=== PATIENT | female | born 1930 | race Caucasian/White ===

== ENCOUNTER 2017-06-16 19:04 | Emergency (ER) | payer OTHER ==
[~2017-06-16] VITALS: Ht 160 cm; Wt 85.4 kg
[~2017-06-16 19:04] MED LIST: AMLO-110 PO; AMLO-114 PO; BACI500O21 TOP; DEXT30TA7 PO; DICL1GEL12 TOP; FERR1TAB13 PO; METR0.757 TOP; MULTCAP31 PO; NYSCR30 TOP; OMEG10007 PO; PRLSR20 PO
[2017-06-16 19:12] VITALS: TEMP 36.4; Ht 160 cm; Wt 85.4 kg
--- NOTE | 2017-06-16 20:10 | DIAGNOSTIC IMAGING REPORT ---
R SHOULDER MIN 2 VIEWS ROUTINE HISTORY: 87 years-old Female shoulder pain acute right-sided shoulder pain without reported trauma COMPARISON: None available TECHNIQUE: 4 views of the right shoulder FINDINGS: The bones appear moderately demineralized which limits evaluation for acute nondisplaced fracture. Severe glenohumeral and acromioclavicular degenerative changes are noted. There is prominent spurring along the caudal portion of the acromium. Study is also limited secondary to patient positioning. No acute fracture or subluxation is identified. IMPRESSION: 1. No acute fracture or dislocation identified. 2. Severe glenohumeral and acromioclavicular degenerative changes . The above report was generated using voice recognition software. It may contain grammatical, syntax or spelling errors. Electronically signed by: Jaden Anglin M.D. 06/16/2017 8:09 PM Dictated Date/Time: 06/16/2017 8:05 PM
[2017-06-16] MEDS ORDERED: OXYCODONE HCL IR 5 MG TAB (IMMEDIATE RELEASE) PO STA (20:31)
[2017-06-16] MEDS ORDERED: CMD/25 PO ×2 (20:35)
[2017-06-16] MEDS ORDERED: ATOR10TA82 PO (20:35)
[2017-06-16] MEDS ORDERED: SODI5SOL4 OPB (20:35)
[2017-06-16] MEDS ORDERED: ACET1TAB84 PO (20:35)
[2017-06-16] MEDS ORDERED: LIDO1CRE16 TOP (20:35)
[2017-06-16] MEDS ORDERED: PRMVC PV (20:35)
[2017-06-16] MEDS ORDERED: PRED20TA PO (20:35)
[2017-06-16] MEDS ORDERED: COEN100C11 PO (20:35)
[2017-06-16] MEDS ORDERED: ALLO100T PO (20:35)
[2017-06-16] MEDS ORDERED: CLR10 PO (20:35)
[2017-06-16] MEDS ORDERED: MISCCAP80 PO (20:35)
[2017-06-16] MEDS ORDERED: AMX500 PO (20:35)
[2017-06-16] MEDS ORDERED: CYAN500T PO (20:35)
[2017-06-16] MEDS ORDERED: ASPCH81X PO (20:35)
[2017-06-16] MEDS ORDERED: COLC0.6T54 PO (20:35)
[2017-06-16] MEDS ORDERED: FLUT0.15 NAE (20:35)
[2017-06-16] MEDS ORDERED: [UNRECOGNIZED DRUG - CODE] TOP (20:35)
[2017-06-16] MEDS ORDERED: TRIA0.5C4 TOP (20:35)
[2017-06-16] MEDS ORDERED: ACET325T96 PO (20:35)
[2017-06-16] MEDS ORDERED: OXYCODONE IR HOME PACK PO ONE (20:45)
[2017-06-16] MEDS ORDERED: MENT4GEL TOP (21:08)
[2017-06-16] MEDS ORDERED: PRLSR20 PO (21:08)
[2017-06-16] MEDS ORDERED: AMLO5TAB2 PO (21:08)
[2017-06-16] MEDS ORDERED: FERR1TAB62 PO (21:08)
[2017-06-16] MEDS ORDERED: MULTCAP31 PO (21:08)
[2017-06-16] MEDS ORDERED: METR0.7527 TOP (21:08)
[2017-06-16] MEDS ORDERED: GUAI1TAB55 PO (21:08)
[2017-06-16] MEDS ORDERED: DICL1GEL12 TOP (21:19)
[2017-06-16 21:48] VITALS: BP 147/76; PULSE 78; O2SAT 99
--- NOTE | 2017-06-16 22:47 | EMERGENCY ROOM VISIT NOTE ---
History Report prepared by Chucky Zhang Under the Supervision of: Dr. Eze Baig D.O. First contact with patient: 19:06 Chief Complaint: SHOULDER PAIN Stated Complaint: SHOULDER PAIN History of Present Illness The patient is an 87 year old female who presents to the Emergency Room with complaints of an episode of right shoulder pain starting yesterday. The patient states that she is unsure why it hurts. She notes that the pain is worse with movement. She notes that she has had this pain before, but has never been this bad. The patient denies falling, tingling, numbness, cough, runny nose, and abdominal pain. She reports that she lives at [facility]. Patient has had pain in the right shoulder for some time but notes that it has significantly worsened now. Source of History: patient Onset: yesterday Position: shoulder (right) Timing: other (episode) Modifying Factors (Worsening): movement Associated Symptoms: No cough, No abdominal pain, No numbness Note: The patient denies falling, tingling, and a runny nose. Review of Systems See HPI for pertinent positives & negatives. A total of 10 systems reviewed and were otherwise negative. Past Medical & Surgical Medical Problems: (1) GI bleed (2) History of DVT (deep vein thrombosis) (3) Hyperlipidemia (4) Hypertension (5) Seasonal allergies Family History No pertinent family history Social History Smoking Status: Former Smoker Drug Use: none Marital Status: Housing Status: custodial Occupation Status: retired Current/Historical Medications Scheduled Acetaminophen (Tylenol Arthritis Ext Rel), 1,300 MG PO QAM Allopurinol (Zyloprim), 100 MG PO DAILY Amlodipine Besylate (Norvasc), 5 MG PO HS Aspirin (Aspirin Chewable), 81 MG PO DAILY Atorvastatin (Lipitor), 10 MG PO HS Coenzyme Q10 (Ubidecarenone) (Coq-10), 100 MG PO DAILY Colchicine (Colchicine), 0.6 MG PO Q48HRS Cyanocobalamin (Vitamin B-12), 500 MCG PO QAM Emollient (Eucerin Original Healing), 1 APPLN TOP HS Estrogens, Conjugated (Premarin), 1 APPL PV 3XWK Ferrous Sulfate (Ferrous Sulfate), 325 MG PO QPM Fish Oil (Vici-3), 1,000 MG PO QAM Fluticasone Propionate (Nasal) (Flonase Allergy Relief), 1 SPRAY EVA DAILY Loratadine (Claritin), 10 MG PO Q24H Metronidazole (Topical) (Metrogel), 1 APPLN TOP BID Multiple Vitamins W/ Minerals (Ocuvite Lutein), 1 CAP PO QAM Omeprazole (Prilosec), 40 MG PO BID Probiotic Product (Probiotic), 1 CAP PO DAILY Sodium Chloride Hypertonic (Jim 128), 1 DROP OPB TID Triamcinolone Acet (Triamcinolone Acetonide), 1 APPLN TOP AMPM Warfarin Sod (Coumadin), 2.5 MG PO 6XWK Warfarin Sod (Coumadin), 1.25 MG PO WK Scheduled PRN Acetaminophen Tab (Tylenol), 650 MG PO Q6H PRN for Pain or Fever Amoxicillin (Amoxicillin), 2,000 MG PO UD PRN for Antibiotic Prophylaxis Diclofenac Sodium (Topical) (Voltaren 1% Top Gel), 2 GM TOP Q6H PRN for Shoulder Pain Guaifenesin Ext Rel (Mucinex Ext Rel), 600 MG PO Q12 PRN for Cough/Congestion Lidocaine-Prilocaine (Lidocaine/Prilocaine), 1 APPLN TOP Q6H PRN for Shoulder Pain Menthol (Topical Analgesic) (Biofreeze), 1 APPLN TOP Q4H PRN for Pain Prednisone (Prednisone), 20 MG PO UD PRN for Gout Flare Up Allergies Coded Allergies: No Known Allergies (Unverified , 04/17/17) Physical Exam Vital Signs Date Time Temp Pulse Resp B/P (MAP) Pulse Ox O2 Delivery O2 Flow Rate FiO2 06/16/17 21:48 78 20 147/76 99 06/16/17 20:00 85 20 147/78 97 Room Air 06/16/17 19:12 36.4 91 20 157/79 95 Room Air Physical Exam GENERAL: Sitting up in bed and holding right shoulder with her left arm, alert, well appearing, well nourished, mild distress, non-toxic EYE EXAM: normal conjunctiva. OROPHARYNX: no exudate, no erythema, lips, buccal mucosa, and tongue normal and mucous membranes are moist NECK: supple, no nuchal rigidity, no adenopathy, non-tender LUNGS: Clear to auscultation. Normal chest wall mechanics HEART: no murmurs, S1 normal and S2 normal ABDOMEN: abdomen soft, non-tender, normo-active bowel sounds, no masses, no rebound or guarding. BACK: Back is symmetrical on inspection and there is no deformity, no midline tenderness, no CVA tenderness. SKIN: no rashes and no bruising UPPER EXTREMITIES: Significant pain with palpation of right humerus along with abduction more than 60 degrees, internal rotation and external rotation. LOWER EXTREMITIES: No pitting edema. NEURO EXAM: Oriented to person, place, and time. Nonfocal. Medical Decision & Procedures ER Provider Diagnostic Interpretation: Radiology results as stated below per my review and the radiologist's interpretation: R SHOULDER MIN 2 VIEWS ROUTINE HISTORY: 87 years-old Female shoulder pain acute right-sided shoulder pain without reported trauma COMPARISON: None available TECHNIQUE: 4 views of the right shoulder FINDINGS: The bones appear moderately demineralized which limits evaluation for acute nondisplaced fracture. Severe glenohumeral and acromioclavicular degenerative changes are noted. There is prominent spurring along the caudal portion of the acromium. Study is also limited secondary to patient positioning. No acute fracture or subluxation is identified. IMPRESSION: 1. No acute fracture or dislocation identified. 2. Severe glenohumeral and acromioclavicular degenerative changes . The above report was generated using voice recognition software. It may contain grammatical, syntax or spelling errors. Electronically signed by: Jaden Anglin M.D. 06/16/2017 8:09 PM Dictated Date/Time: 06/16/2017 8:05 PM Medications Administered Medications (Trade) Dose Ordered Sig/Nydia Route Start Time Stop Time Status Last Admin Dose Admin Oxycodone HCl (Roxicodone Immediate Rel Tab) 5 mg NOW STAT PO 06/16/17 20:31 06/16/17 20:32 DC 06/16/17 21:28 5 MG Oxycodone HCl (Roxicodone Immediate Rel 5MG Home Pack) 1 homepack UD ONCE PO 06/16/17 20:45 06/16/17 20:46 DC 06/16/17 21:28 1 HOMEPACK ED Course ED COURSE: Vital signs were reviewed and showed hypertensive situationally. The patients medical record was reviewed The above diagnostic studies were performed and reviewed. ED treatments and interventions as stated above. 1908: The patient was evaluated in room A4A. A complete history and physical examination was performed. 2030: Ordered Oxycodone HCl 5 mg PO. 2035: Upon reevaluation, the patient is resting comfortably.I discussed my findings with the patient and her family. They understand and agrees with the treatment plan. The patient will be discharged home. 2044: Ordered Oxycodone HCl 1 homepack PO. Based on the patients age, coexisting illnesses, exam and lab findings the decision to treat as an outpatient was made. The patient remained stable while under my care. The patient appeared well at the time of discharge. Medical Decision Differential diagnosis: Etiologies such as fracture, dislocation, neurovascular compromise, compartment syndrome, soft tissue injury, as well as others were entertained. Patient is an 87-year-old female who presents to ER for right shoulder pain. Patient denies any trauma. No chest pain or shortness of breath. On exam it clearly reproducible. Pain is worsened with internal and external rotation. Along with abduction and palpation. She has severe arthritis on x-ray. Patient was given OxyIR and discharged following a long conversation with family back to [facility]. She has a narcotic prescription which hasn't been filled yet which family will fill for her. Discussed with Pt concerning signs and symptoms to watch out for. Pt was instructed to follow up with their PCP and discussed with the patient their option to return to the ED at anytime for persistent or worsening symptoms. The appropriate anticipatory guidance and out-patient management, including indications for return to the emergency department, were explained at length to the patient and understood. Medication Reconcilliation Current Medication List: was personally reviewed by me Blood Pressure Screening Patient's blood pressure: Elevated blood pressure Blood pressure disposition: Elevated BP felt to be situational Impression Primary Impression: Right shoulder pain Scribe Attestation The scribe's documentation has been prepared under my direction and personally reviewed by me in its entirety. I confirm that the note above accurately reflects all work, treatment, procedures, and medical decision making performed by me. Departure Information Dispostion Home / Self-Care Referrals Antonette Lilly D.O. (PCP) Forms HOME CARE DOCUMENTATION FORM, IMPORTANT VISIT INFORMATION Patient Instructions My [facility] Additional Instructions Please follow up with your primary care doctor with in the next 24 hours. Any worsening of your symptoms, please return to the ED immediately. This includes any fevers greater than 100.4, worsening pain, chest pain, shortness breath, persistent nausea, vomiting, unable to eat or drink, or any other concerning signs or symptoms from your standpoint. Please take pain medications as prescribed. Problem Qualifiers Primary Impression: Right shoulder pain Chronicity: acute Qualified Codes: M25.511 - Pain in right shoulder
== END 2017-06-16 21:50 | disposition home or self-care (01) ==
LOC: EDBD 19:04 → C.EDA 19:05
DX: M25.511 Pain in right shoulder (principal); E78.5 Hyperlipidemia, unspecified; I10 Essential (primary) hypertension; Z86.718 Personal history of other venous thrombosis and embolism; Z87.891 Personal history of nicotine dependence; Z79.82 Long term (current) use of aspirin; Z79.01 Long term (current) use of anticoagulants; Z79.899 Other long term (current) drug therapy

== ENCOUNTER 2017-06-24 15:26 | Inpatient (IN) | payer OTHER ==
[~2017-06-24] VITALS: Ht 154.9 cm; Wt 83.6 kg
[~2017-06-24 15:26] MED LIST changes: +ACET1TAB84 PO; +ACET325T96 PO; +ALLO100T PO; -AMLO-110 PO; -AMLO-114 PO; +AMLO5TAB2 PO; +AMX500 PO; +ASPCH81X PO; +ATOR10TA82 PO; -BACI500O21 TOP; +CLR10 PO; +CMD/25 PO; +COEN100C11 PO; +COLC0.6T54 PO; +CYAN500T PO; -DEXT30TA7 PO; -FERR1TAB13 PO; +FERR1TAB62 PO; +FLUT0.15 NAE; +GUAI1TAB55 PO; +LIDO1CRE16 TOP; +MENT4GEL TOP; +METR0.7527 TOP; -METR0.757 TOP; +MISCCAP80 PO; -NYSCR30 TOP; +PRED20TA PO; +PRMVC PV; +SODI5SOL4 OPB; +TRIA0.5C4 TOP; +[UNRECOGNIZED DRUG - CODE] TOP
[2017-06-24] MEDS ORDERED: ONDANSETRON INJ 2 MG/ML 2 ML VIAL IV STA (15:56)
[2017-06-24] MEDS ORDERED: SODIUM CHLORIDE 0.9% 500ML 500 ML IV STA (15:59)
[2017-06-24 16:24] LABS: BASO % 0.1 %; BASO ABS # 0.01 K/uL (0-0.2); EOS % 0.2 %; EOS ABS # 0.02 K/uL (0-0.5); HEMATOCRIT 29.5 % (37-47); HEMOGLOBIN 9.9 g/dL (12.0-16.0); IG# 0.04 K/uL (0.00-0.02); LYMPH % 13.6 %; LYMPH ABS # 1.24 K/uL (1.2-3.4); MEAN CORPUSCULAR HEMOGLOBIN 32.6 pg (25-34); MEAN CORPUSCULAR HGB CONC 33.6 g/dl (32-36); MEAN PLATELET VOLUME 10.3 fL (7.4-10.4); MONO % 6.3 %; MONO ABS # 0.57 K/uL (0.11-0.59); NEUT % 79.4 %; NEUT ABS # 7.24 K/uL (1.4-6.5); PLATELET COUNT 257 K/uL (130-400); RED CELL DISTRIBUTION WIDTH CV 14.2 % (11.5-14.5); RED CELL DISTRIBUTION WIDTH SD 50.2 fL (36.4-46.3); WHITE BLOOD COUNT 9.12 K/uL (4.8-10.8)
--- NOTE | 2017-06-24 16:25 | DIAGNOSTIC IMAGING REPORT ---
CT HEAD WITHOUT CONTRAST (CT) CLINICAL HISTORY: Generalized weakness. Confusion. COMPARISON STUDY: No previous studies for comparison. TECHNIQUE: Axial CT of the brain is performed from the vertex to the skull base. IV contrast was not administered for this examination. A dose lowering technique was utilized adhering to the principles of ALARA. CT DOSE: 614.27 mGy.cm FINDINGS: No intra or extra-axial mass lesions are visualized. There is no CT evidence of acute cortical infarction. There is no evidence of midline shift. There is no acute hemorrhage. No calvarial fractures are visualized. There are moderate white matter hypodensities likely on a small vessel basis. There is mild ventricular dilatation, likely secondary to volume loss. There is no evidence of acute sinusitis IMPRESSION: No acute intracranial findings Electronically signed by: Héctor Stoddard M.D. 06/24/2017 4:24 PM Dictated Date/Time: 06/24/2017 4:22 PM
[2017-06-24] MEDS ORDERED: OXYC1CAP5 PO ×3 (16:33)
[2017-06-24] MEDS ORDERED: HYDR-5688 PO ×2 (16:40)
[2017-06-24 16:42] LABS: ALBUMIN 2.7 gm/dl (3.4-5.0); ALT/SGPT 27 U/L (12-78); AST/SGOT 14 U/L (15-37); BLOOD UREA NITROGEN 89 mg/dl (7-18); CALCIUM 8.8 mg/dl (8.5-10.1); CARBON DIOXIDE 24 mmol/L (21-32); CREATININE 1.13 mg/dl (0.60-1.20); GLUCOSE 118 mg/dl (70-99); LIPASE 175 U/L (73-393); POTASSIUM 4.2 mmol/L (3.5-5.1); SODIUM 142 mmol/L (136-145)
[2017-06-24 16:46] LABS: ALKALINE PHOSPHATASE 104 U/L (45-117); PHOSPHORUS 2.6 mg/dl (2.5-4.9); TOTAL PROTEIN 6.2 gm/dl (6.4-8.2)
--- NOTE | 2017-06-24 18:29 | DIAGNOSTIC IMAGING REPORT ---
PA CHEST RADIOGRAPH AND UPRIGHT AND SUPINE AP RADIOGRAPHS OF THE ABDOMEN CLINICAL HISTORY: Abdominal pain. COMPARISON STUDY: No previous studies for comparison. FINDINGS: Lung volumes are normal. No pneumothorax or pleural effusion is noted. Lobular density along the left hemidiaphragm is noted. There is no evidence of pulmonary edema. There is no consolidation to suggest pneumonia. Patient is rotated. Several mediastinal air-fluid levels. This suggests a hiatal hernia with possible esophageal dilatation. There is no free air. The bowel gas pattern is normal. A moderate amount stool within the cecum/ascending colon is noted. A 2.5 cm calcified right upper quadrant structure likely reflects a gallstone. IMPRESSION: 1. Lower mediastinal fullness with several mediastinal air-fluid levels. The findings favor a hiatal hernia with possible intrathoracic stomach and possible esophageal dilatation. This could be correlated with clinical evidence for obstruction such as vomiting. 2. No free air or evidence of a bowel obstruction. 3. Lobular density along the left hemidiaphragm. This may reflect elevation/eventration of the left hemidiaphragm or a Bochdalek hernia. However, follow-up nonemergent lateral chest radiograph is recommended for further evaluation. 4. Cholelithiasis. Electronically signed by: Mikhail Forde M.D. 06/24/2017 6:27 PM Dictated Date/Time: 06/24/2017 6:20 PM
[2017-06-24] MEDS ORDERED: PANTOprazole INJ 80 MG in DEXTROSE 5% 100ML IV SCH (19:15)
[2017-06-24] MEDS: PANTOprazole INJ 40 MG in DEXTROSE 5% 100ML IV SCH (19:15)
--- NOTE | 2017-06-24 19:24 | EMERGENCY ROOM VISIT NOTE ---
History Report prepared by Bakari: Evelina Da Silva Under the Supervision of: Dr. Jac Quiles M.D. First contact with patient: 15:35 Chief Complaint: ILLNESS Stated Complaint: VOMITING,LETHARGIC History of Present Illness The patient is an 87 year old white female with a past medical history of GI bleed, DVT, hyperlipidemia, hypertension who presents to the ED with a cc of persistent weakness beginning this morning. Positive vomiting, fatigue, confusion. Negative cough, fever, chills, speech change, abdominal pain. Source of History: patient, family Onset: this morning Position: other (global) Quality: other (weakness) Timing: other (persistent) Associated Symptoms: + vomiting, + fatigue, No fevers, No chills, No cough, No abdominal pain Note: Pt reports confusion. Review of Systems See HPI for pertinent positives and negatives. A total of ten systems were reviewed and were otherwise negative. Past Medical & Surgical Medical Problems: (1) GI bleed (2) History of DVT (deep vein thrombosis) (3) Hyperlipidemia (4) Hypertension (5) Seasonal allergies Family History No pertinent family history Social History Smoking Status: Never Smoker Drug Use: none Marital Status: Housing Status: [facility] Occupation Status: retired Current/Historical Medications Scheduled Acetaminophen (Tylenol Arthritis Ext Rel), 1,300 MG PO QAM Allopurinol (Zyloprim), 100 MG PO DAILY Amlodipine Besylate (Norvasc), 5 MG PO HS Aspirin (Aspirin Chewable), 81 MG PO DAILY Atorvastatin (Lipitor), 10 MG PO HS Coenzyme Q10 (Ubidecarenone) (Coq-10), 100 MG PO DAILY Colchicine (Colchicine), 0.6 MG PO Q48HRS Cyanocobalamin (Vitamin B-12), 500 MCG PO QAM Emollient (Eucerin Original Healing), 1 APPLN TOP HS Estrogens, Conjugated (Premarin), 1 APPL PV 3XWK Ferrous Sulfate (Ferrous Sulfate), 325 MG PO QPM Fish Oil ([place]-3), 1,000 MG PO QAM Fluticasone Propionate (Nasal) (Flonase Allergy Relief), 1 SPRAY EVA DAILY Metronidazole (Topical) (Metrogel), 1 APPLN TOP BID Multiple Vitamins W/ Minerals (Ocuvite Lutein), 1 CAP PO QAM Omeprazole (Prilosec), 40 MG PO BID Probiotic Product (Probiotic), 1 CAP PO DAILY Sodium Chloride Hypertonic (Jim 128), 1 DROP OPB TID Triamcinolone Acet (Triamcinolone Acetonide), 1 APPLN TOP AMPM Warfarin Sod (Coumadin), 2.5 MG PO 6XWK Warfarin Sod (Coumadin), 1.25 MG PO WK Scheduled PRN Acetaminophen Tab (Tylenol), 650 MG PO Q6H PRN for Pain or Fever Amoxicillin (Amoxicillin), 2,000 MG PO UD PRN for Antibiotic Prophylaxis Diclofenac Sodium (Topical) (Voltaren 1% Top Gel), 2 GM TOP Q6H PRN for Shoulder Pain Guaifenesin Ext Rel (Mucinex Ext Rel), 600 MG PO Q12 PRN for Cough/Congestion Hydrocodone/Acetaminophen 5MG/325MG ([place] 5MG/325MG), 0.5 TABLET PO Q4 PRN for Pain Hydrocodone/Acetaminophen 5MG/325MG ([place] 5MG/325MG), 1 TABLET PO Q4H PRN for Pain Hydrocodone/Acetaminophen 5MG/325MG ([place] 5MG/325MG), 2 TABLETS PO Q4 PRN for Pain Lidocaine-Prilocaine (Lidocaine/Prilocaine), 1 APPLN TOP Q6H PRN for Shoulder Pain Loratadine (Claritin), 10 MG PO Q24H PRN for Seasonal Allergies Menthol (Topical Analgesic) (Biofreeze), 1 APPLN TOP Q4H PRN for Pain Oxycodone Hcl (Oxycodone Hcl), 2.5 MG PO Q4 PRN for Pain Oxycodone Hcl (Oxycodone Hcl), 5 MG PO Q4H PRN for Pain Prednisone (Prednisone), 20 MG PO UD PRN for Gout Flare Up Allergies Coded Allergies: No Known Allergies (Unverified , 06/24/17) Physical Exam Vital Signs Date Time Temp Pulse Resp B/P (MAP) Pulse Ox O2 Delivery O2 Flow Rate FiO2 06/24/17 19:00 95 19 123/52 96 06/24/17 18:57 88 18 133/73 97 Room Air 06/24/17 17:35 88 18 94 06/24/17 17:05 87 19 95 06/24/17 17:00 146/85 06/24/17 16:35 89 17 94 06/24/17 16:30 134/80 06/24/17 16:26 91 13 06/24/17 16:11 92 15 06/24/17 16:11 92 06/24/17 15:31 36.9 98 18 109/66 96 Room Air Physical Exam GENERAL: Awake, alert, well-appearing, NAD HENT: Normocephalic, atraumatic. EYES: Normal conjunctiva. Sclera non-icteric. NECK: Supple. No nuchal rigidity. FROM. RESPIRATORY: CTAB, no rhonchi, wheezing, crackles CARDIAC: RRR, no MRG ABDOMEN: Soft, NTND, BS+ MSK: No chest wall TTP, no LE edema NEURO: CN 2-12 intact, 5/5 upper and lower extremity strength, no dysmetria, no drift, good finger to nose, no sensory deficits. SKIN: No rash or jaundice noted. Medical Decision & Procedures ER Provider Diagnostic Interpretation: Radiology results as stated below per my review and radiologist interpretation: PA CHEST RADIOGRAPH AND UPRIGHT AND SUPINE AP RADIOGRAPHS OF THE ABDOMEN CLINICAL HISTORY: Abdominal pain. COMPARISON STUDY: No previous studies for comparison. FINDINGS: Lung volumes are normal. No pneumothorax or pleural effusion is noted. Lobular density along the left hemidiaphragm is noted. There is no evidence of pulmonary edema. There is no consolidation to suggest pneumonia. Patient is rotated. Several mediastinal air-fluid levels. This suggests a hiatal hernia with possible esophageal dilatation. There is no free air. The bowel gas pattern is normal. A moderate amount stool within the cecum/ascending colon is noted. A 2.5 cm calcified right upper quadrant structure likely reflects a gallstone. IMPRESSION: 1. Lower mediastinal fullness with several mediastinal air-fluid levels. The findings favor a hiatal hernia with possible intrathoracic stomach and possible esophageal dilatation. This could be correlated with clinical evidence for obstruction such as vomiting. 2. No free air or evidence of a bowel obstruction. 3. Lobular density along the left hemidiaphragm. This may reflect elevation/eventration of the left hemidiaphragm or a Bochdalek hernia. However, follow-up nonemergent lateral chest radiograph is recommended for further evaluation. 4. Cholelithiasis. Electronically signed by: Mikhail Forde M.D. 06/24/2017 6:27 PM Dictated Date/Time: 06/24/2017 6:[address] HEAD WITHOUT CONTRAST (CT) CLINICAL HISTORY: Generalized weakness. Confusion. COMPARISON STUDY: No previous studies for comparison. TECHNIQUE: Axial CT of the brain is performed from the vertex to the skull base. IV contrast was not administered for this examination. A dose lowering technique was utilized adhering to the principles of ALARA. CT DOSE: 614.27 mGy.cm FINDINGS: No intra or extra-axial mass lesions are visualized. There is no CT evidence of acute cortical infarction. There is no evidence of midline shift. There is no acute hemorrhage. No calvarial fractures are visualized. There are moderate white matter hypodensities likely on a small vessel basis. There is mild ventricular dilatation, likely secondary to volume loss. There is no evidence of acute sinusitis IMPRESSION: No acute intracranial findings Electronically signed by: Héctor Stoddard M.D. 06/24/2017 4:24 PM Dictated Date/Time: 06/24/2017 4:22 PM Laboratory Results Test 06/24/17 16:12 06/24/17 16:18 06/24/17 19:32 Immature Granulocyte % (Auto) 0.4 % White Blood Count 9.12 K/uL (4.8-10.8) Red Blood Count 3.04 M/uL (4.2-5.4) Hemoglobin 9.9 g/dL (12.0-16.0) Hematocrit 29.5 % (37-47) Mean Corpuscular Volume 97.0 fL (80-100) Mean Corpuscular Hemoglobin 32.6 pg (25-34) Mean Corpuscular Hemoglobin Concent 33.6 g/dl (32-36) Platelet Count 257 K/uL (130-400) Mean Platelet Volume 10.3 fL (7.4-10.4) Neutrophils (%) (Auto) 79.4 % Lymphocytes (%) (Auto) 13.6 % Monocytes (%) (Auto) 6.3 % Eosinophils (%) (Auto) 0.2 % Basophils (%) (Auto) 0.1 % Neutrophils # (Auto) 7.24 K/uL (1.4-6.5) Lymphocytes # (Auto) 1.24 K/uL (1.2-3.4) Monocytes # (Auto) 0.57 K/uL (0.11-0.59) Eosinophils # (Auto) 0.02 K/uL (0-0.5) Basophils # (Auto) 0.01 K/uL (0-0.2) Immature Granulocyte # (Auto) 0.04 K/uL (0.00-0.02) Venous Blood pH 7.38 (7.36-7.41) Venous Blood Partial Pressure CO2 40 mmHg (38.0-50.0) Venous Blood Partial Pressure O2 24 mmHg Venous Blood HCO3 24 mmol/L Venous Blood Oxygen Saturation < 60.0 % Venous Blood Base Excess -1.5 mEq/L Phosphorus Level 2.6 mg/dl (2.5-4.9) Magnesium Level 1.9 mg/dl (1.8-2.4) Total Bilirubin 0.2 mg/dl (0.2-1) Direct Bilirubin < 0.1 mg/dl (0-0.2) Aspartate Amino Transf (AST/SGOT) 14 U/L (15-37) Alanine Aminotransferase (ALT/SGPT) 27 U/L (12-78) Alkaline Phosphatase 104 U/L (45-117) Total Protein 6.2 gm/dl (6.4-8.2) Albumin 2.7 gm/dl (3.4-5.0) Lipase 175 U/L (73-393) Bedside Troponin I < 0.030 ng/ml (0-0.045) Prothrombin Time 20.5 SECONDS (9.0-12.0) Prothromb Time International Ratio 2.0 (0.9-1.1) Activated Partial Thromboplast Time 35.9 SECONDS (21.0-31.0) Partial Thromboplastin Ratio 1.4 Laboratory results reviewed by me Medications Administered Medications (Trade) Dose Ordered Sig/Nydia Route Start Time Stop Time Status Last Admin Dose Admin Sodium Chloride 500 ml @ 500 mls/hr Q1H STAT IV 06/24/17 15:59 06/24/17 16:58 DC 06/24/17 16:28 500 MLS/HR Pantoprazole Sodium 80 mg/ Dextrose 120 ml @ 480 mls/hr 1915 IV 06/24/17 19:15 06/24/17 19:29 DC 06/24/17 20:00 480 MLS/HR ECG Indication: weakness Rate (beats per minute): 86 Rhythm: sinus rhythm Findings: 1st degree AV block, other (normal axis, normal QRS, T wave flattening in V3 and avL) Comparison ECG Date: 17-Apr-2017 Change: no significant change ED Course 1551: The patient was evaluated in room A12B. A complete history and physical exam was performed. 1747: I reevaluated the patient. She is feeling well. 1837: Upon reexamination, the patient was resting comfortably. I discussed the test results and treatment plan with her and her daughter. The patient will be evaluated for further management. 1840: I discussed the patient's case with Padmini Barnes PA-C [facility]ist. The patient will be evaluated for further treatment and disposition. Medical Decision The patient is an 87 year old white female with a past medical history of GI bleed, DVT, hyperlipidemia, hypertension who presents to the ED with a cc of persistent weakness beginning this morning. Differential diagnosis: Etiologies such as metabolic, infection, hypo/hyperglycemia, electrolyte abnormalities, cardiac sources, intracerebral event, toxicologic, neurologic, as well as others were entertained. Patient was seen and evaluated the bedside. There was concern the patient had some generalized weakness as well as some crushable confusion. On exam the patient had a nonfocal neurologic exam. Patient was able to answer all questions asked and followed commands. Patient did have blood work completed along with EKG, chest x-ray, troponin, and CT of the brain. CT brain negative. EKG did not show any ischemic changes. Patient had negative troponin. Patient blood work did show that the patient did have an elevated BUNs. The BUNs was greater than 80. Patient did have a hemoglobin that was greater from prior. Patient had normal platelet count. I did have the block and case maker called the [facility]iary for further discussion of why they referred here in addition to whether not be could rehydrate. I believe that the high uremia may explain some of her confusion. Per the block and case maker did call the penitentiary they're concerned about some coffee ground emesis. Did perform a rectal exam which did show that the patient was heme positive. 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 Given that the patient did have an elevated BUN that was much greater than priors, this was not likely related to just dehydration but likely the etiology of an upper GI bleed. The patient was given a PPI bolus and drip. Patient was pending coagulation studies and the patient was admitted for GI bleed. Medication Reconcilliation Current Medication List: was personally reviewed by me Blood Pressure Screening Patient's blood pressure: Elevated blood pressure Blood pressure disposition: Did not require urgent referral Consults Time Called: 1837 Consulting Physician: MOHINI Geiger hospitalist Returned Call: [phone] Discussed the patient's case. The patient will be evaluated for further treatment and disposition. Impression Primary Impression: GI bleed Additional Impressions: Confusion Anemia Critical Care I have personally spent greater than 50 minutes of critical care time in the direct management of this patient given her GI bleed with confusion. This includes bedside care, interpretation of diagnostic studies, and testing, discussion with consultants, patient, and family members, and other required patient management activities. This 50 minutes is in excess of all separately billable procedures. Scribe Attestation The scribe's documentation has been prepared under my direction and personally reviewed by me in its entirety. I confirm that the note above accurately reflects all work, treatment, procedures, and medical decision making performed by me. Departure Information Dispostion Being Evaluated By Hospitalist Referrals Petty Mena C.R.N.P. (PCP) Patient Instructions My [facility] Problem Qualifiers Primary Impression: GI bleed GI bleed type/associated pathology: unspecified gastrointestinal hemorrhage type Qualified Codes: K92.2 - Gastrointestinal hemorrhage, unspecified Additional Impressions: Anemia Anemia type: other cause Other causes of anemia: other cause, not classified Qualified Codes: D64.89 - Other specified anemias
[2017-06-24] MEDS ORDERED: ONDANSETRON INJ 2 MG/ML 2 ML VIAL IV PRN (19:45)
[2017-06-24 19:58] LABS: PTT PATIENT 35.9 SECONDS (21.0-31.0)
[2017-06-24] MEDS ORDERED: LORATADINE 10 MG TAB PO PRN (20:15)
[2017-06-24] MEDS ORDERED: ACETAMINOPHEN 325 MG TAB PO PRN (20:15)
[2017-06-24] MEDS ORDERED: AMOXICILLIN 500 MG CAP PO PRN (20:15)
[2017-06-24] MEDS ORDERED: HYDROCODONE/ACETAMOPHEN 5/325MG TAB PO PRN (20:15)
[2017-06-24 20:55] VITALS: BP 103/52; PULSE 93; TEMP 37.2; O2SAT 95; Ht 154.9 cm; Wt 83.6 kg
[2017-06-24] MEDS: FERROUS SULFATE 325 MG TAB PO SCH (21:00)
[2017-06-24] MEDS: AMLODIPINE BESYLATE 5 MG TAB PO SCH (21:00)
[2017-06-24] MEDS: ATORVASTATIN 10 MG TAB PO SCH (21:00)
[2017-06-24] MEDS ORDERED: IV FLUIDS COMPLETED PRN (21:15)
[2017-06-24] MEDS: SODIUM CHLORIDE 0.9% 1000ML 1,000 ML IV SCH (21:57)
[2017-06-24 22:06] LABS: HEMATOCRIT 26.7 % (37-47); HEMOGLOBIN 8.8 g/dL (12.0-16.0); MEAN CELL VOLUME 97.4 fL (80-100); MEAN CORPUSCULAR HEMOGLOBIN 32.1 pg (25-34); MEAN PLATELET VOLUME 10.5 fL (7.4-10.4); PLATELET COUNT 262 K/uL (130-400); RED CELL DISTRIBUTION WIDTH CV 14.5 % (11.5-14.5); RED CELL DISTRIBUTION WIDTH SD 50.9 fL (36.4-46.3); WHITE BLOOD COUNT 13.18 K/uL (4.8-10.8)
[2017-06-24 22:26] LABS: CALCIUM 8.6 mg/dl (8.5-10.1); CREATININE 1.09 mg/dl (0.60-1.20); POTASSIUM 3.8 mmol/L (3.5-5.1)
--- NOTE | 2017-06-24 22:32 | History and Physical ---
History & Physical Date & Time of Service: Jun 24, 2017 at 19:50 Chief Complaint: Confusion, Gi Bleed Primary Care Physician: Petty Mena, C.R.N.P. 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 Patient lives in assisted living at [facility]. Her daughter is at bedside and states that patient was in her normal state of health yesterday. Today, patient felt very fatigued and slept on and off for most of the morning. Per report from [facility], patient had one episode of coffee ground emesis while lying in bed. Patient states that she felt nauseous earlier today but is too tired to remember vomiting. Poor PO intake today. Denies any abdominal pain. Was admitted in April with melena and had an EGD performed which revealed a large hiatal hernia. Was discharged on protonix PO BID. Per daughter, this dose was recently decreased to once a day and patient started to have symptoms of acid reflux and upset stomach, so dose was resumed to twice daily. Is on chronic anticoagulation for a history of lower extremity DVTs. Patient currently endorses fatigue but denies fever, chills, headache, lightheadedness, visual changes, CP, SOB, abd pain, melena or hematochezia. Past Medical/Surgical History Medical Problems: (1) Chronic anemia Status: Chronic (2) Chronic anticoagulation Status: Chronic (3) CKD (chronic kidney disease), stage III Status: Chronic (4) Diastolic heart failure Status: Chronic (5) H/O deep venous thrombosis Status: Chronic (6) Hyperlipidemia Status: Chronic (7) Hypertension Status: Chronic Family History No pertinent family history Social History Smoking Status: Former Smoker Drug Use: none Marital Status: Housing status: assisted living Occupational Status: retired Allergies Coded Allergies: No Known Allergies (Unverified , 06/24/17) Home Medications Scheduled Acetaminophen (Tylenol Arthritis Ext Rel), 1,300 MG PO QAM Allopurinol (Zyloprim), 100 MG PO DAILY Amlodipine Besylate (Norvasc), 5 MG PO HS Aspirin (Aspirin Chewable), 81 MG PO DAILY Atorvastatin (Lipitor), 10 MG PO HS Coenzyme Q10 (Ubidecarenone) (Coq-10), 100 MG PO DAILY Colchicine (Colchicine), 0.6 MG PO Q48HRS Cyanocobalamin (Vitamin B-12), 500 MCG PO QAM Emollient (Eucerin Original Healing), 1 APPLN TOP HS Estrogens, Conjugated (Premarin), 1 APPL PV 3XWK Ferrous Sulfate (Ferrous Sulfate), 325 MG PO QPM Fish Oil (Albia-3), 1,000 MG PO QAM Fluticasone Propionate (Nasal) (Flonase Allergy Relief), 1 SPRAY EVA DAILY Metronidazole (Topical) (Metrogel), 1 APPLN TOP BID Multiple Vitamins W/ Minerals (Ocuvite Lutein), 1 CAP PO QAM Omeprazole (Prilosec), 40 MG PO BID Probiotic Product (Probiotic), 1 CAP PO DAILY Sodium Chloride Hypertonic (Jim 128), 1 DROP OPB TID Triamcinolone Acet (Triamcinolone Acetonide), 1 APPLN TOP AMPM Warfarin Sod (Coumadin), 2.5 MG PO 6XWK Warfarin Sod (Coumadin), 1.25 MG PO WK Scheduled PRN Acetaminophen Tab (Tylenol), 650 MG PO Q6H PRN for Pain or Fever Amoxicillin (Amoxicillin), 2,000 MG PO UD PRN for Antibiotic Prophylaxis Diclofenac Sodium (Topical) (Voltaren 1% Top Gel), 2 GM TOP Q6H PRN for Shoulder Pain Guaifenesin Ext Rel (Mucinex Ext Rel), 600 MG PO Q12 PRN for Cough/Congestion Hydrocodone/Acetaminophen 5MG/325MG ([place] 5MG/325MG), 0.5 TABLET PO Q4 PRN for Pain Hydrocodone/Acetaminophen 5MG/325MG ([place] 5MG/325MG), 1 TABLET PO Q4H PRN for Pain Hydrocodone/Acetaminophen 5MG/325MG ([place] 5MG/325MG), 2 TABLETS PO Q4 PRN for Pain Lidocaine-Prilocaine (Lidocaine/Prilocaine), 1 APPLN TOP Q6H PRN for Shoulder Pain Loratadine (Claritin), 10 MG PO Q24H PRN for Seasonal Allergies Menthol (Topical Analgesic) (Biofreeze), 1 APPLN TOP Q4H PRN for Pain Oxycodone Hcl (Oxycodone Hcl), 2.5 MG PO Q4 PRN for Pain Oxycodone Hcl (Oxycodone Hcl), 5 MG PO Q4H PRN for Pain Prednisone (Prednisone), 20 MG PO UD PRN for Gout Flare Up Review of Systems Ten systems reviewed and negative except as noted in the HPI. Physical Exam Vital Signs Date Time Temp Pulse Resp B/P (MAP) Pulse Ox O2 Delivery O2 Flow Rate FiO2 06/24/17 20:55 37.2 93 20 103/52 95 Room Air 06/24/17 20:39 93 19 93 06/24/17 20:16 142/87 06/24/17 19:00 95 19 123/52 96 06/24/17 18:57 88 18 133/73 97 Room Air 06/24/17 17:35 88 18 94 06/24/17 17:05 87 19 95 06/24/17 17:00 146/85 06/24/17 16:35 89 17 94 06/24/17 16:30 134/80 06/24/17 16:26 91 13 06/24/17 16:11 92 15 06/24/17 16:11 92 06/24/17 15:31 36.9 98 18 109/66 96 Room Air General Appearance: no apparent distress, + pertinent finding (Resting comfortably, lethargic but answered all questions ) Head: normocephalic, atraumatic Eyes: normal inspection, PERRL, sclerae normal ENT: normal ENT inspection, hearing grossly normal, pharynx normal (dry mucous membranes ) Neck: supple, thyroid normal, trachea midline Respiratory/Chest: chest non-tender, lungs clear, normal breath sounds, no respiratory distress, no accessory muscle use Cardiovascular: regular rate, rhythm, no edema, normal peripheral pulses Abdomen/GI: non tender, soft, no organomegaly Extremities/Musculoskelatal: normal inspection, no calf tenderness, no pedal edema Neurologic/Psych: no motor/sensory deficits, alert, normal mood/affect, oriented x 3 (Not oriented to situation.) Skin: normal color, warm/dry Diagnostics Laboratory Results Results Past 24 Hours Test 06/24/17 16:12 06/24/17 16:18 06/24/17 19:32 06/24/17 19:50 Range/Units White Blood Count 9.12 4.8-10.8 K/uL Red Blood Count 3.04 4.2-5.4 M/uL Hemoglobin 9.9 12.0-16.0 g/dL Hematocrit 29.5 37-47 % Mean Corpuscular Volume 97.0 80-100 fL Mean Corpuscular Hemoglobin 32.6 25-34 pg Mean Corpuscular Hemoglobin Concent 33.6 32-36 g/dl Platelet Count 257 130-400 K/uL Mean Platelet Volume 10.3 7.4-10.4 fL Neutrophils (%) (Auto) 79.4 % Lymphocytes (%) (Auto) 13.6 % Monocytes (%) (Auto) 6.3 % Eosinophils (%) (Auto) 0.2 % Basophils (%) (Auto) 0.1 % Neutrophils # (Auto) 7.24 1.4-6.5 K/uL Lymphocytes # (Auto) 1.24 1.2-3.4 K/uL Monocytes # (Auto) 0.57 0.11-0.59 K/uL Eosinophils # (Auto) 0.02 0-0.5 K/uL Basophils # (Auto) 0.01 0-0.2 K/uL RDW Standard Deviation 50.2 36.4-46.3 fL RDW Coefficient of Variation 14.2 11.5-14.5 % Immature Granulocyte % (Auto) 0.4 % Immature Granulocyte # (Auto) 0.04 0.00-0.02 K/uL Venous Blood pH 7.38 7.36-7.41 Venous Blood Partial Pressure CO2 40 38.0-50.0 mmHg Venous Blood Partial Pressure O2 24 mmHg Venous Blood HCO3 24 mmol/L Venous Blood Oxygen Saturation < 60.0 % Venous Blood Base Excess -1.5 mEq/L Sodium Level 142 136-145 mmol/L Potassium Level 4.2 3.5-5.1 mmol/L Chloride Level 109 98-107 mmol/L Carbon Dioxide Level 24 21-32 mmol/L Anion Gap 9.0 3-11 mmol/L Blood Urea Nitrogen 89 7-18 mg/dl Creatinine 1.13 0.60-1.20 mg/dl Estimated GFR () 50.6 Estimated GFR (Non- 43.7 BUN/Creatinine Ratio 78.3 10-20 Random Glucose 118 70-99 mg/dl Calcium Level 8.8 8.5-10.1 mg/dl Phosphorus Level 2.6 2.5-4.9 mg/dl Magnesium Level 1.9 1.8-2.4 mg/dl Total Bilirubin 0.2 0.2-1 mg/dl Direct Bilirubin < 0.1 0-0.2 mg/dl Aspartate Amino Transf (AST/SGOT) 14 15-37 U/L Alanine Aminotransferase (ALT/SGPT) 27 12-78 U/L Alkaline Phosphatase 104 45-117 U/L Total Protein 6.2 6.4-8.2 gm/dl Albumin 2.7 3.4-5.0 gm/dl Lipase 175 73-393 U/L Bedside Troponin I < 0.030 0-0.045 ng/ml Prothrombin Time 20.5 9.0-12.0 SECONDS Prothromb Time International Ratio 2.0 0.9-1.1 Activated Partial Thromboplast Time 35.9 21.0-31.0 SECONDS Partial Thromboplastin Ratio 1.4 Urine Color YELLOW Urine Appearance CLOUDY CLEAR Urine pH 5.5 4.5-7.5 Urine Specific [place] 1.016 1.000-1.030 Urine Protein NEG NEG Urine Glucose (UA) NEG NEG Urine Ketones NEG NEG Urine Occult Blood 1+ NEG Urine Nitrite NEG NEG Urine Bilirubin NEG NEG Urine Urobilinogen NEG NEG Urine Leukocyte Esterase TRACE NEG Urine WBC (Auto) 1-5 0-5 /hpf Urine RBC (Auto) 0-4 0-4 /hpf Urine Hyaline Casts (Auto) 1-5 0-5 /lpf Urine Epithelial Cells (Auto) >30 0-5 /lpf Urine Bacteria (Auto) NEG NEG Test 06/24/17 21:53 Range/Units White Blood Count 13.18 4.8-10.8 K/uL Red Blood Count 2.74 4.2-5.4 M/uL Hemoglobin 8.8 12.0-16.0 g/dL Hematocrit 26.7 37-47 % Mean Corpuscular Volume 97.4 80-100 fL Mean Corpuscular Hemoglobin 32.1 25-34 pg Mean Corpuscular Hemoglobin Concent 33.0 32-36 g/dl RDW Standard Deviation 50.9 36.4-46.3 fL RDW Coefficient of Variation 14.5 11.5-14.5 % Platelet Count 262 130-400 K/uL Mean Platelet Volume 10.5 7.4-10.[address] head: IMPRESSION: No acute intracranial findings Chest/Abd XR: IMPRESSION: 1. Lower mediastinal fullness with several mediastinal air-fluid levels. The findings favor a hiatal hernia with possible intrathoracic stomach and possible esophageal dilatation. This could be correlated with clinical evidence for obstruction such as vomiting. 2. No free air or evidence of a bowel obstruction. 3. Lobular density along the left hemidiaphragm. This may reflect elevation/eventration of the left hemidiaphragm or a Bochdalek hernia. However, follow-up nonemergent lateral chest radiograph is recommended for further evaluation. 4. Cholelithiasis. 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 Upper GI bleed: -One episode of coffee ground emesis earlier today, per [facility] staff -H/o hiatal hernia on EGD in Apr 2017 -Lethargic, BUN elevated to 89 -Endorses poor PO intake -Protonix bolus and drip initiated in ED. Continue drip on the floor -INR is therapeutic at 2.0 -GI consulted -Hold coumadin, aspirin, fish oil -Hgb of 9.9, which is stable -Serial H & H Q6 -Gentle IVF -NPO -AM labs Lethargy: -A&Ox3 on exam -CT head wnl -UA without evidence of infection -Likely caused by dehydration, elevated BUN -Gentle rehydration -Neuro checks Chronic anemia: -Hgb at new baseline ~9 -Consented, type & crossed. Prbcs held for now. H/o DVTs: -Hold coumadin for now in setting of possible UGI bleed -SCDs HTN: -Normotensive -Home meds held for now while NPO HLD: -Home meds held for now Diastolic HF: -Euvolemic -Gentle IVF resuscitation in setting of clinical dehydration CKD III: -Cr of 1.13 today -At baseline DVT Ppx: SCDs Code status: DNR per discussion with patient, living will PCP: Max[facility] Dispo: Telemetry observation. Discharge planning ordered for return to [facility] Patient seen in collaboration with Dr. Moise. Please see addendum. Attending Note: Patient is an 87 yr female with H/O GI bleed and chronic anticoagulation for DVT presents with history of weakness, lethargic-sleeping all day and an episode of coffee ground emesis today. Patient had EGD recently which showed large hiatal hernia, reflex esophagitis and duodenitis. Heme positive rectal exam in ED done by ED physician. Patient denies abdominal pain.Rest as per HPI Physical Exam: General Appearance:Moderately built and nourished, no apparent distress Head: normocephalic, Atraumatic Eyes: normal inspection, EOMI, PERRL Neck: supple, Trachea midline Respiratory/Chest: Normal breath sounds, CTA Cardiovascular: S1, S2, No murmur Abdomen/GI:Soft, Non tender, Bowel sounds present Extremities/Musculoskelatal:normal inspection, 1+ B/L edema Neurologic/Psych:grossly no focal neurological deficits Skin:normal color,warm Assessment and Plan: Upper GI bleeding: Protonix ggt Hold ASA, warfarin IVF Monitor H&H Hb at baseline GI consulted Currently no active bleeding. Will consider reversing INR if active bleeding develops Monitor INR I personally reviewed the record. Patient is interviewed and examined at bedside. Patient's care is coordinated with Padmini Barnes PA-C. Please refer to the documentation above for details of patient's presentation and for discussion of other issues. Level of Care Telemetry Advanced Directives Existing Living Will: Yes Existing Power of Target Aircraft Technician: Yes Resuscitation Status DO NOT RESUSCITATE VTE Prophylaxis VTE Risk Assessment Done? Y/N: Yes Risk Level: Moderate Given or contraindicated: SCD's Social Service Consult Lives in [place]
[2017-06-25] VITALS (12 sets, daily range): BP systolic 101–130; BP diastolic 56–77; PULSE 68–85; TEMP 36.2–37; O2SAT 94–97
[2017-06-25] MEDS: PANTOprazole INJ 40 MG in DEXTROSE 5% 100ML IV SCH ×5 (00:47→20:26)
[2017-06-25 02:26] LABS: HEMATOCRIT 28.2 % (37-47); HEMOGLOBIN 9.2 g/dL (12.0-16.0)
[2017-06-25] MEDS: SODIUM CHLORIDE 0.9% 1000ML 1,000 ML IV SCH ×2 (08:28→20:26)
[2017-06-25] MEDS: FLUTICASONE PROPIONATE NA SPR 16 GM BTL NAE SCH (08:29)
[2017-06-25 08:45] LABS: HEMATOCRIT 24.9 % (37-47); HEMOGLOBIN 8.2 g/dL (12.0-16.0); MEAN CORPUSCULAR HEMOGLOBIN 32.3 pg (25-34); MEAN CORPUSCULAR HGB CONC 32.9 g/dl (32-36); MEAN PLATELET VOLUME 10.2 fL (7.4-10.4); PLATELET COUNT 240 K/uL (130-400); RED CELL DISTRIBUTION WIDTH CV 14.6 % (11.5-14.5); RED CELL DISTRIBUTION WIDTH SD 51.9 fL (36.4-46.3); WHITE BLOOD COUNT 8.88 K/uL (4.8-10.8)
[2017-06-25 08:56] LABS: INR 1.9 (0.9-1.1)
[2017-06-25] MEDS ORDERED: ACETAMINOPHEN 500 MG TAB PO SCH (09:00)
[2017-06-25 09:18] LABS: CALCIUM 8.4 mg/dl (8.5-10.1); CREATININE 1.06 mg/dl (0.60-1.20); POTASSIUM 4.1 mmol/L (3.5-5.1)
[2017-06-25] MEDS: ALLOPURINOL 100 MG TAB PO SCH (09:54)
[2017-06-25] MEDS: CYANOCOBALAMIN 500 MCG TAB (VIT B-12) PO SCH (09:55)
--- NOTE | 2017-06-25 10:04 | Gastrointestinal Consultation ---
Gastrointestinal Consultation Date of Consultation: Jun 25, 2017 Attending Physician: Dr. Barnes Consulting Physician: Dr. Flores Reason for Consultation: UGI bleed History of Present Illness Patient is a 87 year old female resident of [facility] who carries a hx of HTN, CHF, DVTs on anemia, CKD3, Hiatal hernia. Yesterday, she felt fatigued, slept more than usual and experienced one episode of coffee grounds emesis. She was brought to [facility] because of the coffee grounds emesis and GI is consulted for an upper GI bleed. On arrival, Hb was 9.9 which is up from her baseline, most recent prior Hb was 9.0 on 04/19/17. BUN was also elevated on arrival at 89 w/o a compensatory increase in Creatinine. Since arrival, she has not had further emesis and has not passed a BM. When asked this morning, she mentioned that she currently has some LUQ discomfort but denies having ongoing or prior recent abdominal pain. No heartburn. She was seen in consult at [facility] in Apr 2017 for melena and she underwent EGD with findings of esophagitis, was placed on BID PPI and is now on a once daily PPI, though the pt recalls that there was some confusion with this medication and believes that there had been a lapse before restarting this recently. She is awake, alert, oriented, appears comfortable, is on a Protonix drip and tells me that she would prefer not to undergo EGD if possible as she "just had one." Past Medical/Surgical History Medical Problems: (1) Arthritis Status: Acute (2) GI bleed Status: Acute Past Medical History: 1. HTn 2. Hyperlipidemia 3. Diastolic Heart Failure 4. CKD3 5. Chronic anemia 6. DVTs Past Surgical History: 1. EGD for melena on 04/18/[address] Lares: - Large hiatus hernia. - LA Grade C reflux esophagitis. - A small amount of food (residue) in the stomach. - Duodenitis. - No specimens collected. Recommendation: - Return patient to hospital [facility] for ongoing care. - Use Prilosec (omeprazole) 40 mg PO BID for at least 2 months, then consider 20 mg once to twice daily. Family History No pertinent family history Social History Smoking Status: Former Smoker Drug Use: none Marital Status: Housing Status: [facility] Occupation Status: retired Allergies Coded Allergies: No Known Allergies (Unverified , 06/24/17) Current Medications Home Meds and Scripts Medications Dose Route/Sig Max Daily Dose Days Date Category Dose Instructions [place] 5MG/325MG (Acetaminophen/Hydrocodone Bitart) Tab 2 Tablets PO Q4 PRN 06/24/17 Reported take 2 tablets every 4 hours as needed for pain ( pain scale 8-10 on a pain scale of 1-10) [place] 5MG/325MG (Acetaminophen/Hydrocodone Bitart) Tab 1 Tablet PO Q4H PRN 06/24/17 Reported take 1 tablet every 4 hours as needed for pain ( pain scale of 1-10 on a 1-10 scale) [place] 5MG/325MG (Acetaminophen/Hydrocodone Bitart) Tab 0.5 Tablet PO Q4 PRN 06/24/17 Reported take one half tablet every 4 hours as neeed for pain ( pain 2-6 on a scale of 0-10) Oxycodone Hcl 5 Mg Cap 5 Mg PO Q4H PRN 30 06/24/17 Reported take 5mg every 4 hours as needed for pain if prn norco ineffective, take 5mg po prn pain 7-10 on a scale of 0-10 Oxycodone Hcl 5 Mg Cap 2.5 Mg PO Q4 PRN 30 06/24/17 Reported take 2.5mg every 4 hours as needed for pain if prn norco is ineffective, take 1/2 tablet po prn pain 2-6 on a scale of 0-10 Voltaren 1% Top Gel (Diclofenac Sodium (Topical)) 1 % Gel 2 Gm TOP Q6H PRN 06/16/17 Reported APPLY TO SHOULDERS DIRECTED Prilosec (Omeprazole) 20 Mg Capcr 40 Mg PO BID 06/16/17 Reported Ocuvite Lutein (Multiple Vitamins W/ Minerals) 1 Cap Cap 1 Cap PO QAM 06/16/17 Reported Mucinex Ext Rel (Guaifenesin) 600 Mg Tab 600 Mg PO Q12 PRN 06/16/17 Reported Biofreeze (Menthol (Topical Analgesic)) 4 % Gel 1 Appln TOP Q4H PRN 06/16/17 Reported APPLY A SMALL AMOUNT TO AFFECTED AREA(S) Norvasc (Amlodipine Besylate) 5 Mg Tab 5 Mg PO HS 06/16/17 Reported Metrogel (Metronidazole (Topical)) 0.75 % Gel 1 Appln TOP BID 06/16/17 Reported APPLY TO FACE DIRECTED Ferrous Sulfate 325 Mg Tab 325 Mg PO QPM 06/16/17 Reported Eucerin Original Healing (Emollient) 1 Lot Lot 1 Appln TOP HS 04/17/17 Reported APPLY TO FEET Coumadin (Warfarin Sod) 2.5 Mg Tab 1.25 Mg PO WK 04/17/17 Reported TAKE HALF A TABLET (1.25 MG) EVERY THURSDAY OR OTHERWISE DIRECTED TO TAKE BY ANTICOAGULATION CLINIC/MD Coumadin (Warfarin Sod) 2.5 Mg Tab 2.5 Mg PO 6XWK 04/17/17 Reported TAKE 2.5 MG EVERY THURSDAY,THURSDAY,THURSDAY,THURSDAY,THURSDAY AND THURSDAY OR OTHERWISE DIRECTED TO TAKE BY ANTICOAGULATION CLINIC/MD Colchicine 0.6 Mg Tab 0.6 Mg PO Q48HRS 04/17/17 Reported Coq-10 (Coenzyme Q10 (Ubidecarenone)) 100 Mg Cap 100 Mg PO DAILY 04/17/17 Reported Aspirin Chewable (Aspirin) 81 Mg Chew 81 Mg PO DAILY 04/17/17 Reported Amoxicillin 500 Mg Cap 2,000 Mg PO UD PRN 04/17/17 Reported TAKE THIS MEDICATION ONE HOUR PRIOR TO DENTAL PROCEDURES Zyloprim (Allopurinol) 100 Mg Tab 100 Mg PO DAILY 04/17/17 Reported Vitamin B-12 (Cyanocobalamin) 500 Mcg Tab 500 Mcg PO QAM 04/17/17 Reported Triamcinolone Acetonide (Triamcinolone Acet) 0.5 % Cre 1 Appln TOP AMPM 04/17/17 Reported APPLY TO LOWER EXTREMITIES DIRECTED Jim 128 (Sodium Chloride Hypertonic) 5 % Aura 1 Drop OPB TID 04/17/17 Reported Probiotic (Probiotic Product) 1 Cap Cap 1 Cap PO DAILY 04/17/17 Reported Premarin (Estrogens, Conjugated) 14 Appln/30 Gm Cr 1 Appl PV 3XWK 04/17/17 Reported PREMARIN 0.625 MG/GM - ONE APPLICATION AT BEDTIME EVERY THURSDAY,THURSDAY AND THURSDAY Prednisone 20 Mg Tab 20 Mg PO UD PRN 04/17/17 Reported TAPER DOWN DOSING FOLLOWS: TAKE 3 TABLETS (60 MG) DAILY FOR 1 DAY THEN, TAKE 2 TABLETS (40 MG) DAILY FOR 2 DAYS THEN, TAKE 1 TABLET (20 MG) DAILY FOR 2 DAYS THEN, TAKE 0.5 TABLET (10 MG) DAILY FOR 2 DAYS THEN STOP. Claritin (Loratadine) 10 Mg Tab 10 Mg PO Q24H PRN 04/17/17 Reported Lipitor (Atorvastatin Calcium) 10 Mg Tab 10 Mg PO HS 04/17/17 Reported Lidocaine/Prilocaine (Lidocaine-Prilocaine) 1 Cre Cre 1 Appln TOP Q6H PRN 04/17/17 Reported APLLY DIRECTED TO SHOULDERS Flonase Allergy Relief (Fluticasone Propionate (Nasal)) 50 Mcg/Act Spr 1 [place] EVA DAILY 04/17/17 Reported Tylenol (Acetaminophen) 325 Mg Tab 650 Mg PO Q6H PRN 04/17/17 Reported Tylenol Arthritis Ext Rel (Acetaminophen) 650 Mg Cplt 1,300 Mg PO QAM 04/17/17 Reported [place]-3 (Fish Oil) 1 Ea Cap 1,000 Mg PO QAM 01/07/16 Reported Review of Systems Constitutional: + fatigue, No fever, No chills, No sweats, No weight loss, No weakness Eyes: No eye pain, No redness ENT: No sore throat, No trouble swallowing, No pain on swallowing Respiratory: No cough, No wheezing, No shortness of breath, No dyspnea on exertion Cardiac: No chest pain, No edema, No palpitations Abdomen: + see HPI, + GI bleeding (coffee grounds emesis) Neuro: No memory loss, No weakness, No numbness/tingling, No vertigo, No balance problems Psych: No depression symptoms, No anxiety, No insomnia Heme: No abnormal bleeding/bruising, No night sweats Endo: No excessive thirst, No excessive urination Skin: No rash, No itch, No new/changing skin lesions, No jaundice Pt denies any recent symptoms of illness - no fevers, chills, diarrhea or abdominal pain Physical Exam Date Time Temp Pulse Resp B/P (MAP) Pulse Ox O2 Delivery O2 Flow Rate FiO2 06/25/17 07:45 36.6 78 20 117/66 (83) 95 Room Air 06/25/17 07:32 Room Air 06/25/17 04:00 Room Air 06/25/17 04:00 36.5 77 18 117/77 (90) 95 Room Air 06/25/17 00:00 36.8 81 20 122/66 (84) 94 Room Air 06/25/17 00:00 Room Air 06/24/17 20:55 37.2 93 20 103/52 95 Room Air 06/24/17 20:39 93 19 93 06/24/17 20:16 142/87 06/24/17 19:00 95 19 123/52 96 06/24/17 18:57 88 18 133/73 97 Room Air 06/24/17 17:35 88 18 94 06/24/17 17:05 87 19 95 06/24/17 17:00 146/85 06/24/17 16:35 89 17 94 06/24/17 16:30 134/80 06/24/17 16:26 91 13 06/24/17 16:11 92 15 06/24/17 16:11 92 06/24/17 15:31 36.9 98 18 109/66 96 Room Air General Appearance: no apparent distress Eyes: normal inspection, EOMI Neck: supple, no adenopathy, thyroid normal, no JVD Respiratory/Chest: chest non-tender, lungs clear, normal breath sounds, no accessory muscle use Cardiovascular: regular rate, rhythm, no JVD, no murmur Abdomen: normal bowel sounds, soft, no organomegaly, + tenderness (though c/o LUQ pain no abdomen tenderness on palpation - no worsening of LUQ discomfort with palpation there. ) Extremities: normal inspection, no pedal edema, normal capillary refill Neurologic/Psych: alert, normal mood/affect, oriented x 3 Skin: normal color, no jaundice, warm/dry, no rash Laboratory Results Last 24 Hours Test 06/24/17 16:12 06/24/17 16:18 06/24/17 19:32 06/24/17 19:50 White Blood Count 9.12 K/uL Red Blood Count 3.04 M/uL Hemoglobin 9.9 g/dL Hematocrit 29.5 % Mean Corpuscular Volume 97.0 fL Mean Corpuscular Hemoglobin 32.6 pg Mean Corpuscular Hemoglobin Concent 33.6 g/dl Platelet Count 257 K/uL Mean Platelet Volume 10.3 fL Neutrophils (%) (Auto) 79.4 % Lymphocytes (%) (Auto) 13.6 % Monocytes (%) (Auto) 6.3 % Eosinophils (%) (Auto) 0.2 % Basophils (%) (Auto) 0.1 % Neutrophils # (Auto) 7.24 K/uL Lymphocytes # (Auto) 1.24 K/uL Monocytes # (Auto) 0.57 K/uL Eosinophils # (Auto) 0.02 K/uL Basophils # (Auto) 0.01 K/uL RDW Standard Deviation 50.2 fL RDW Coefficient of Variation 14.2 % Immature Granulocyte % (Auto) 0.4 % Immature Granulocyte # (Auto) 0.04 K/uL Venous Blood pH 7.38 Venous Blood Partial Pressure CO2 40 mmHg Venous Blood Partial Pressure O2 24 mmHg Venous Blood HCO3 24 mmol/L Venous Blood Oxygen Saturation < 60.0 % Venous Blood Base Excess -1.5 mEq/L Sodium Level 142 mmol/L Potassium Level 4.2 mmol/L Chloride Level 109 mmol/L Carbon Dioxide Level 24 mmol/L Anion Gap 9.0 mmol/L Blood Urea Nitrogen 89 mg/dl Creatinine 1.13 mg/dl Estimated GFR () 50.6 Estimated GFR (Non- 43.7 BUN/Creatinine Ratio 78.3 Random Glucose 118 mg/dl Calcium Level 8.8 mg/dl Phosphorus Level 2.6 mg/dl Magnesium Level 1.9 mg/dl Total Bilirubin 0.2 mg/dl Direct Bilirubin < 0.1 mg/dl Aspartate Amino Transf (AST/SGOT) 14 U/L Alanine Aminotransferase (ALT/SGPT) 27 U/L Alkaline Phosphatase 104 U/L Total Protein 6.2 gm/dl Albumin 2.7 gm/dl Lipase 175 U/L Bedside Troponin I < 0.030 ng/ml Prothrombin Time 20.5 SECONDS Prothromb Time International Ratio 2.0 Activated Partial Thromboplast Time 35.9 SECONDS Partial Thromboplastin Ratio 1.4 Urine Color YELLOW Urine Appearance CLOUDY Urine pH 5.5 Urine Specific [place] 1.016 Urine Protein NEG Urine Glucose (UA) NEG Urine Ketones NEG Urine Occult Blood 1+ Urine Nitrite NEG Urine Bilirubin NEG Urine Urobilinogen NEG Urine Leukocyte Esterase TRACE Urine WBC (Auto) 1-5 /hpf Urine RBC (Auto) 0-4 /hpf Urine Hyaline Casts (Auto) 1-5 /lpf Urine Epithelial Cells (Auto) >30 /lpf Urine Bacteria (Auto) NEG Test 06/24/17 21:53 06/25/17 02:14 06/25/17 08:20 White Blood Count 13.18 K/uL 8.88 K/uL Red Blood Count 2.74 M/uL 2.54 M/uL Hemoglobin 8.8 g/dL 9.2 g/dL 8.2 g/dL Hematocrit 26.7 % 28.2 % 24.9 % Mean Corpuscular Volume 97.4 fL 98.0 fL Mean Corpuscular Hemoglobin 32.1 pg 32.3 pg Mean Corpuscular Hemoglobin Concent 33.0 g/dl 32.9 g/dl RDW Standard Deviation 50.9 fL 51.9 fL RDW Coefficient of Variation 14.5 % 14.6 % Platelet Count 262 K/uL 240 K/uL Mean Platelet Volume 10.5 fL 10.2 fL Sodium Level 142 mmol/L Potassium Level 3.8 mmol/L Chloride Level 111 mmol/L Carbon Dioxide Level 22 mmol/L Anion Gap 9.0 mmol/L Blood Urea Nitrogen 81 mg/dl Creatinine 1.09 mg/dl Est Creatinine Clear Calc Drug Dose 35.6 ml/min Estimated GFR () 52.9 Estimated GFR (Non- 45.6 BUN/Creatinine Ratio 74.6 Random Glucose 107 mg/dl Calcium Level 8.6 mg/dl Prothrombin Time 19.3 SECONDS Prothromb Time International Ratio 1.9 Impression Patient is a 87 year old female with hx of esophagitis, now with one episode of coffee grounds emesis w/o drop in her Hb/Hct (though there is an increase in BUN ). This appears to be a non hemodynamically significant upper GI bleed, possibly from esophagitis as this was seen on EGD 2 months ago. Plan 1. Agree with Protonix drip. 2. Because not hemodynamically significant bleeding, and because pt prefers to avoid endoscopy if possible, will give full liquids po today, then NPO after midnight and will consider EGD tomorrow if drop in Hb/Hct or if further gross GI bleeding. 3. Consider stopping the ASA 81mg depending on the indication for that medication. 4. Will continue to follow this pt closely. ATTESTATION: I have performed a history and physical examination of this patient and reviewed the electronic record. Specifically, on physical examination there is mild upper abdominal tenderness. I have discussed the case with MALAIKA Martinez. The above note reflects my findings, conclusions, and recommendations. Micheal Flores MD
[2017-06-25] MEDS: COLCHICINE 0.6 MG TAB PO SCH (10:37)
[2017-06-25 14:11] LABS: HEMATOCRIT 22.8 % (37-47); HEMOGLOBIN 7.3 g/dL (12.0-16.0)
--- NOTE | 2017-06-25 16:27 | Progress Note ---
Internal Med Progress Note Date of Service: Jun 25, 2017. Provider Documentation: SUBJECTIVE: The patient was seen and examined No more bleeding OBJECTIVE: Vital Signs-as noted below Exam: General-no distress at rset Eyes-Normal ENT-normal Neck-supple Lungs-clear to ausucltate bilaterally Heart-regular Abdomen-benign,no masses,bowel sound present Extremities-No edema Neuro-AAOx3 Lab data as noted below. 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 Upper GI bleed: -One episode of coffee ground emesis earlier today, per [facility] staff -H/o hiatal hernia on EGD in Apr 2017 - BUN elevated to 89 -Protonix bolus and drip initiated in ED. Continue drip on the floor -INR is therapeutic at 2.0 -GI consulted-appreciate input -Hold Coumadin, aspirin, fish oil -Hgb of 9.9, which is stable -Hb dropped to <8.0 -will give 1 unit PRBC -Likely EGD tomorrow Lethargy: -A&Ox3 on exam -CT head wnl -UA without evidence of infection -Likely caused by dehydration, elevated BUN -Gentle rehydration -clinically better Chronic anemia: -Hgb at new baseline ~9 -Consented, type & crossed. Prbcs held for now. H/o DVTs: -Hold coumadin for now in setting of possible UGI bleed -SCDs HTN: -Normotensive -Home meds held for now while NPO HLD: -Home meds held for now Diastolic HF: -Euvolemic -Gentle IVF resuscitation in setting of clinical dehydration -monitor for fluid overload CKD III: -Cr of 1.13 today -At baseline DVT Ppx: SCDs Code status: DNR per discussion with patient, living will Vital Signs: Date Time Temp Pulse Resp B/P (MAP) Pulse Ox O2 Delivery O2 Flow Rate FiO2 06/25/17 16:05 36.4 74 16 116/56 06/25/17 15:44 36.6 68 18 116/74 (88) 97 Room Air 06/25/17 12:00 Room Air 06/25/17 11:58 36.3 73 18 107/70 (82) 96 06/25/17 07:45 36.6 78 20 117/66 (83) 95 Room Air 06/25/17 07:32 Room Air 06/25/17 04:00 Room Air 06/25/17 04:00 36.5 77 18 117/77 (90) 95 Room Air 06/25/17 00:00 36.8 81 20 122/66 (84) 94 Room Air 06/25/17 00:00 Room Air 06/24/17 20:55 37.2 93 20 103/52 95 Room Air 06/24/17 20:39 93 19 93 06/24/17 20:16 142/87 06/24/17 19:00 95 19 123/52 96 06/24/17 18:57 88 18 133/73 97 Room Air 06/24/17 17:35 88 18 94 06/24/17 17:05 87 19 95 06/24/17 17:00 146/85 06/24/17 16:35 89 17 94 06/24/17 16:30 134/80 06/24/17 16:26 91 13 Lab Results: Results Past 24 Hours Test 06/24/17 16:58 06/24/17 19:32 06/24/17 19:50 06/24/17 21:53 Range/Units Bedside Lactic Acid Venous 1.10 0.90-1.70 mmol/L Prothrombin Time 20.5 9.0-12.0 SECONDS Prothromb Time International Ratio 2.0 0.9-1.1 Activated Partial Thromboplast Time 35.9 21.0-31.0 SECONDS Partial Thromboplastin Ratio 1.4 Urine Color YELLOW Urine Appearance CLOUDY CLEAR Urine pH 5.5 4.5-7.5 Urine Specific [place] 1.016 1.000-1.030 Urine Protein NEG NEG Urine Glucose (UA) NEG NEG Urine Ketones NEG NEG Urine Occult Blood 1+ NEG Urine Nitrite NEG NEG Urine Bilirubin NEG NEG Urine Urobilinogen NEG NEG Urine Leukocyte Esterase TRACE NEG Urine WBC (Auto) 1-5 0-5 /hpf Urine RBC (Auto) 0-4 0-4 /hpf Urine Hyaline Casts (Auto) 1-5 0-5 /lpf Urine Epithelial Cells (Auto) >30 0-5 /lpf Urine Bacteria (Auto) NEG NEG White Blood Count 13.18 4.8-10.8 K/uL Red Blood Count 2.74 4.2-5.4 M/uL Hemoglobin 8.8 12.0-16.0 g/dL Hematocrit 26.7 37-47 % Mean Corpuscular Volume 97.4 80-100 fL Mean Corpuscular Hemoglobin 32.1 25-34 pg Mean Corpuscular Hemoglobin Concent 33.0 32-36 g/dl RDW Standard Deviation 50.9 36.4-46.3 fL RDW Coefficient of Variation 14.5 11.5-14.5 % Platelet Count 262 130-400 K/uL Mean Platelet Volume 10.5 7.4-10.4 fL Sodium Level 142 136-145 mmol/L Potassium Level 3.8 3.5-5.1 mmol/L Chloride Level 111 98-107 mmol/L Carbon Dioxide Level 22 21-32 mmol/L Anion Gap 9.0 3-11 mmol/L Blood Urea Nitrogen 81 7-18 mg/dl Creatinine 1.09 0.60-1.20 mg/dl Est Creatinine Clear Calc Drug Dose 35.6 ml/min Estimated GFR () 52.9 Estimated GFR (Non- 45.6 BUN/Creatinine Ratio 74.6 10-20 Random Glucose 107 70-99 mg/dl Calcium Level 8.6 8.5-10.1 mg/dl Test 06/25/17 02:14 06/25/17 08:20 06/25/17 13:54 Range/Units Hemoglobin 9.2 8.2 7.3 12.0-16.0 g/dL Hematocrit 28.2 24.9 22.8 37-47 % White Blood Count 8.88 4.8-10.8 K/uL Red Blood Count 2.54 4.2-5.4 M/uL Mean Corpuscular Volume 98.0 80-100 fL Mean Corpuscular Hemoglobin 32.3 25-34 pg Mean Corpuscular Hemoglobin Concent 32.9 32-36 g/dl RDW Standard Deviation 51.9 36.4-46.3 fL RDW Coefficient of Variation 14.6 11.5-14.5 % Platelet Count 240 130-400 K/uL Mean Platelet Volume 10.2 7.4-10.4 fL Prothrombin Time 19.3 9.0-12.0 SECONDS Prothromb Time International Ratio 1.9 0.9-1.1 Sodium Level 143 136-145 mmol/L Potassium Level 4.1 3.5-5.1 mmol/L Chloride Level 114 98-107 mmol/L Carbon Dioxide Level 22 21-32 mmol/L Anion Gap 8.0 3-11 mmol/L Blood Urea Nitrogen 67 7-18 mg/dl Creatinine 1.06 0.60-1.20 mg/dl Est Creatinine Clear Calc Drug Dose 36.4 ml/min Estimated GFR () 54.7 Estimated GFR (Non- 47.2 BUN/Creatinine Ratio 62.8 10-20 Random Glucose 102 70-99 mg/dl Calcium Level 8.4 8.5-10.1 mg/dl Magnesium Level 2.1 1.8-2.4 mg/dl
[2017-06-25] MEDS: FERROUS SULFATE 325 MG TAB PO SCH (20:30)
[2017-06-25] MEDS: ATORVASTATIN 10 MG TAB PO SCH (20:30)
[2017-06-25] MEDS: AMLODIPINE BESYLATE 5 MG TAB PO SCH (20:31)
[2017-06-26] VITALS (8 sets, daily range): BP systolic 119–140; BP diastolic 73–79; PULSE 65–80; TEMP 36.1–36.7; O2SAT 92–100
[2017-06-26] MEDS: PANTOprazole INJ 40 MG in DEXTROSE 5% 100ML IV SCH ×5 (01:01→21:14)
[2017-06-26 07:21] LABS: HEMATOCRIT 26.1 % (37-47); HEMOGLOBIN 8.5 g/dL (12.0-16.0); MEAN CELL VOLUME 93.9 fL (80-100); MEAN CORPUSCULAR HEMOGLOBIN 30.6 pg (25-34); MEAN CORPUSCULAR HGB CONC 32.6 g/dl (32-36); MEAN PLATELET VOLUME 10.1 fL (7.4-10.4); PLATELET COUNT 209 K/uL (130-400); RED CELL DISTRIBUTION WIDTH CV 15.8 % (11.5-14.5); RED CELL DISTRIBUTION WIDTH SD 54.6 fL (36.4-46.3); WHITE BLOOD COUNT 5.88 K/uL (4.8-10.8)
[2017-06-26 07:29] LABS: INR 1.9 (0.9-1.1)
[2017-06-26 07:55] LABS: CALCIUM 8.6 mg/dl (8.5-10.1); CREATININE 0.91 mg/dl (0.60-1.20); POTASSIUM 3.9 mmol/L (3.5-5.1)
--- NOTE | 2017-06-26 10:05 | Gastroenterology Progress Note ---
Progress Note Date of Service: Jun 26, 2017 Subjective Pt evaluation today including: conversation w/ patient, physical exam, chart review, lab review, review of studies, review of inpatient medication list Ms. Davis is an 87 yr old female patient brought from [facility] for coffee grounds emesis. Hb on arrival 9.9, down to 7.3, received one unit of RBC and Hb today 8.5. One loose black BM yesterday afternoon. Pt underwent EGD in Nov with esophagitis and prefers not to repeat EGD unless absolutely necessary. Review of Systems Constitutional: No fever, No chills, No sweats, No weakness, No fatigue Respiratory: No cough, No shortness of breath Cardiac: No chest pain Abdomen: + diarrhea (one loose black BM yesterday), No pain, No nausea, No vomiting Female : No dysuria Psych: No depression symptoms Endo: No fatigue Skin: No rash Medications Current Inpatient Medications Medications (Trade) Dose Ordered Sig/Nydia Route Start Time Stop Time Status Last Admin Dose Admin Pantoprazole Sodium 40 mg/ Dextrose 100 ml @ 20 mls/hr Q5H IV 06/24/17 19:15 07/24/17 19:14 06/26/17 06:22 20 MLS/HR Ondansetron HCl (Zofran Inj) 4 mg Q6H PRN IV 06/24/17 19:45 07/24/17 19:44 Sodium Chloride 1,000 ml @ 80 mls/hr [id number] IV 06/24/17 19:45 07/24/17 19:44 06/25/17 20:26 80 MLS/HR Acetaminophen (Tylenol Tab) 650 mg Q6H PRN PO 06/24/17 20:15 07/24/17 20:14 Allopurinol (Zyloprim Tab) 100 mg DAILY PO 06/25/17 09:00 07/25/17 08:59 06/25/17 09:54 100 MG Amlodipine Besylate (Norvasc Tab) 5 mg HS PO 06/24/17 21:00 07/24/17 20:59 06/25/17 20:31 5 MG Atorvastatin Calcium (Lipitor Tab) 10 mg HS PO 06/24/17 21:00 07/24/17 20:59 06/25/17 20:30 10 MG Colchicine (Colchicine Tab) 0.6 mg DAILY PO 06/25/17 09:00 07/25/17 08:59 06/25/17 10:37 0.6 MG Cyanocobalamin (Vitamin B-12 Tab) 500 mcg QAM PO 06/25/17 09:00 07/25/17 08:59 06/25/17 09:55 500 MCG Fluticasone Propionate (Flonase Nasal [place]) 2 sprays DAILY EVA 06/25/17 09:00 07/25/17 08:59 06/25/17 08:29 2 SPRAYS Acetaminophen/ Hydrocodone Bitart ([place] 5/325 Tab) 1 tab Q4 PRN PO 06/24/17 20:15 07/08/17 20:14 Loratadine (Claritin Tab) 10 mg Q24H PRN PO 06/24/17 20:15 07/24/17 20:14 Acetaminophen (Tylenol Tab) 1,000 mg QAM PO 06/25/17 09:00 07/25/17 08:59 06/25/17 09:54 1,000 MG Ferrous Sulfate (Feosol Tab) 325 mg QPM PO 06/24/17 21:00 07/24/17 20:59 06/25/17 20:30 325 MG Miscellaneous (Iv Fluids Completed) 1 ea PRN PRN N/A 06/24/17 21:15 06/24/18 21:14 Objective Vital Signs Date Time Temp Pulse Resp B/P (MAP) Pulse Ox O2 Delivery O2 Flow Rate FiO2 06/26/17 07:42 36.5 65 18 132/73 (92) 92 Room Air 06/26/17 05:04 36.7 74 18 119/75 (90) 94 Room Air 06/26/17 04:05 Room Air 06/26/17 00:05 Room Air 06/25/17 23:51 37.0 81 20 130/73 (92) 95 Room Air 06/25/17 20:05 Room Air 06/25/17 19:13 36.2 84 18 128/75 (92) 97 Room Air 06/25/17 18:09 36.5 85 18 101/68 06/25/17 17:20 36.5 84 16 118/68 06/25/17 16:51 36.4 73 16 120/76 06/25/17 16:30 Room Air 06/25/17 16:19 36.8 69 16 116/75 06/25/17 16:05 36.4 74 16 116/56 06/25/17 15:44 36.6 68 18 116/74 (88) 97 Room Air 06/25/17 12:00 Room Air 06/25/17 11:58 36.3 73 18 107/70 (82) 96 Physical Exam General Appearance: no apparent distress Eyes: PERRL ENT: pharynx normal Neck: supple, thyroid normal, no JVD, trachea midline Respiratory/Chest: lungs clear Cardiovascular: regular rate, rhythm, no JVD, no murmur Abdomen: normal bowel sounds, non tender, soft Extremities: normal inspection Neurologic/Psych: alert, normal mood/affect, oriented x 3 Skin: no jaundice Laboratory Results Last 24 Hours Test 06/25/17 13:54 06/26/17 07:00 Hemoglobin 7.3 g/dL 8.5 g/dL Hematocrit 22.8 % 26.1 % White Blood Count 5.88 K/uL Red Blood Count 2.78 M/uL Mean Corpuscular Volume 93.9 fL Mean Corpuscular Hemoglobin 30.6 pg Mean Corpuscular Hemoglobin Concent 32.6 g/dl RDW Standard Deviation 54.6 fL RDW Coefficient of Variation 15.8 % Platelet Count 209 K/uL Mean Platelet Volume 10.1 fL Prothrombin Time 20.2 SECONDS Prothromb Time International Ratio 1.9 Sodium Level 145 mmol/L Potassium Level 3.9 mmol/L Chloride Level 115 mmol/L Carbon Dioxide Level 22 mmol/L Anion Gap 8.0 mmol/L Blood Urea Nitrogen 35 mg/dl Creatinine 0.91 mg/dl Est Creatinine Clear Calc Drug Dose 42.7 ml/min Estimated GFR () 65.7 Estimated GFR (Non- 56.7 BUN/Creatinine Ratio 38.6 Random Glucose 89 mg/dl Calcium Level 8.6 mg/dl Assessment and Plan Ms. Davis is an 87 yr old female with melena, though no brisk bleeding. She recently underwent EGD in Nov with esophagitis. This melena likely represents melena and pt prefers not to repeat EGD. Plan: 1. Recommend terminologist, low dose BID Omeprazole (20mg BID). 2. Regular diet. 3. GI will sign us off. Please notify us if new, worsened GI bleeding or dramatic drop in Hb/Hct.
[2017-06-26] MEDS: CYANOCOBALAMIN 500 MCG TAB (VIT B-12) PO SCH (10:17)
[2017-06-26] MEDS: ALLOPURINOL 100 MG TAB PO SCH (10:17)
[2017-06-26] MEDS: COLCHICINE 0.6 MG TAB PO SCH (10:18)
[2017-06-26] MEDS: FLUTICASONE PROPIONATE NA SPR 16 GM BTL NAE SCH (10:18)
[2017-06-26] MEDS: SODIUM CHLORIDE 0.9% 1000ML 1,000 ML IV SCH ×2 (10:22→21:31)
[2017-06-26] MEDS: ACETAMINOPHEN 500 MG TAB PO SCH (12:38)
--- NOTE | 2017-06-26 15:22 | Progress Note ---
Internal Med Progress Note Date of Service: Jun 26, 2017. Provider Documentation: SUBJECTIVE: The patient was seen and examined No more bleeding Hb dropped last evening but no more bleeding noted Received 1 unit of PRBC OBJECTIVE: Vital Signs-as noted below Exam: General-no distress at rset Eyes-Normal ENT-normal Neck-supple Lungs-clear to ausucltate bilaterally Heart-regular Abdomen-benign,no masses,bowel sound present Extremities-No edema Neuro-AAOx3 Lab data as noted below. 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 Upper GI bleed: -One episode of coffee ground emesis earlier today, per [facility] staff -H/o hiatal hernia on EGD in Apr 2017 - BUN elevated to 89 -Protonix bolus and drip initiated in ED. Continue drip on the floor -INR is therapeutic at 2.0 -GI consulted-appreciate input -Hold Coumadin, aspirin, fish oil -Hgb of 9.9, which is stable -Hb dropped to <8.0 -will give 1 unit PRBC -Hb Stable -No EGD as long as bleeding stops and Hb remains shima -Will monitor tonight,if Hb stable tomorrow -will discharge Lethargy: -A&Ox3 on exam -CT head wnl -UA without evidence of infection -Likely caused by dehydration, elevated BUN -Gentle rehydration -clinically better -PT/OT Chronic anemia: -Hgb at new baseline ~9 -Consented, type & crossed. Prbcs held for now. H/o DVTs: -Hold coumadin for now in setting of possible UGI bleed -SCDs HTN: -Normotensive -Home meds held for now while NPO HLD: -Home meds held for now Diastolic HF: -Euvolemic -Gentle IVF resuscitation in setting of clinical dehydration -monitor for fluid overload CKD III: -Cr of 1.13 today -At baseline -better today DVT Ppx: SCDs Code status: DNR per discussion with patient, living will Vital Signs: Date Time Temp Pulse Resp B/P (MAP) Pulse Ox O2 Delivery O2 Flow Rate FiO2 06/26/17 12:00 92 Room Air 06/26/17 08:00 92 Room Air 06/26/17 07:42 36.5 65 18 132/73 (92) 92 Room Air 06/26/17 05:04 36.7 74 18 119/75 (90) 94 Room Air 06/26/17 04:05 Room Air 06/26/17 00:05 Room Air 06/25/17 23:51 37.0 81 20 130/73 (92) 95 Room Air 06/25/17 20:05 Room Air 06/25/17 19:13 36.2 84 18 128/75 (92) 97 Room Air 06/25/17 18:09 36.5 85 18 101/68 06/25/17 17:20 36.5 84 16 118/68 06/25/17 16:51 36.4 73 16 120/76 06/25/17 16:30 Room Air 06/25/17 16:19 36.8 69 16 116/75 06/25/17 16:05 36.4 74 16 116/56 06/25/17 15:44 36.6 68 18 116/74 (88) 97 Room Air Lab Results: Results Past 24 Hours Test 06/26/17 07:00 Range/Units White Blood Count 5.88 4.8-10.8 K/uL Red Blood Count 2.78 4.2-5.4 M/uL Hemoglobin 8.5 12.0-16.0 g/dL Hematocrit 26.1 37-47 % Mean Corpuscular Volume 93.9 80-100 fL Mean Corpuscular Hemoglobin 30.6 25-34 pg Mean Corpuscular Hemoglobin Concent 32.6 32-36 g/dl RDW Standard Deviation 54.6 36.4-46.3 fL RDW Coefficient of Variation 15.8 11.5-14.5 % Platelet Count 209 130-400 K/uL Mean Platelet Volume 10.1 7.4-10.4 fL Prothrombin Time 20.2 9.0-12.0 SECONDS Prothromb Time International Ratio 1.9 0.9-1.1 Sodium Level 145 136-145 mmol/L Potassium Level 3.9 3.5-5.1 mmol/L Chloride Level 115 98-107 mmol/L Carbon Dioxide Level 22 21-32 mmol/L Anion Gap 8.0 3-11 mmol/L Blood Urea Nitrogen 35 7-18 mg/dl Creatinine 0.91 0.60-1.20 mg/dl Est Creatinine Clear Calc Drug Dose 42.7 ml/min Estimated GFR () 65.7 Estimated GFR (Non- 56.7 BUN/Creatinine Ratio 38.6 10-20 Random Glucose 89 70-99 mg/dl Calcium Level 8.6 8.5-10.1 mg/dl
[2017-06-26] MEDS: AMLODIPINE BESYLATE 5 MG TAB PO SCH (20:57)
[2017-06-26] MEDS: FERROUS SULFATE 325 MG TAB PO SCH (20:58)
[2017-06-26] MEDS: ATORVASTATIN 10 MG TAB PO SCH (20:58)
[2017-06-27 00:03] VITALS: BP 117/78; PULSE 65; TEMP 36.4; O2SAT 94
[2017-06-27] MEDS: PANTOprazole INJ 40 MG in DEXTROSE 5% 100ML IV SCH ×4 (01:48→15:39)
[2017-06-27 07:12] LABS: HEMATOCRIT 25.4 % (37-47); HEMOGLOBIN 8.2 g/dL (12.0-16.0); MEAN CELL VOLUME 95.1 fL (80-100); MEAN CORPUSCULAR HEMOGLOBIN 30.7 pg (25-34); MEAN CORPUSCULAR HGB CONC 32.3 g/dl (32-36); MEAN PLATELET VOLUME 10.2 fL (7.4-10.4); PLATELET COUNT 231 K/uL (130-400); RED CELL DISTRIBUTION WIDTH SD 54.4 fL (36.4-46.3); WHITE BLOOD COUNT 4.49 K/uL (4.8-10.8)
[2017-06-27 07:39] VITALS: BP 139/72; PULSE 68; TEMP 36.6; O2SAT 92
[2017-06-27] MEDS: ACETAMINOPHEN 500 MG TAB PO SCH (08:27)
[2017-06-27] MEDS: COLCHICINE 0.6 MG TAB PO SCH (08:27)
[2017-06-27] MEDS: FLUTICASONE PROPIONATE NA SPR 16 GM BTL NAE SCH (08:28)
[2017-06-27] MEDS: ALLOPURINOL 100 MG TAB PO SCH (08:28)
[2017-06-27] MEDS: CYANOCOBALAMIN 500 MCG TAB (VIT B-12) PO SCH (08:28)
[2017-06-27 08:30] VITALS: O2SAT 92
[2017-06-27] MEDS: SODIUM CHLORIDE 0.9% 1000ML 1,000 ML IV SCH (10:13)
[2017-06-27 15:11] VITALS: BP 121/76; PULSE 63; TEMP 36.4; O2SAT 98
[2017-06-27 16:26] VITALS: BP 121/76; PULSE 63; TEMP 36.4; O2SAT 98
--- NOTE | 2017-06-27 16:35 | Progress Note ---
Internal Med Progress Note Date of Service: Jun 27, 2017. Provider Documentation: SUBJECTIVE: The patient was seen and examined No more bleeding Hb remains stable and no more bleeding noted Denies any symptoms OBJECTIVE: Vital Signs-as noted below Exam: General-no distress at rset Eyes-Normal ENT-normal Neck-supple Lungs-clear to ausucltate bilaterally Heart-regular Abdomen-benign,no masses,bowel sound present Extremities-No edema Neuro-AAOx3 Lab data as noted below. 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 Upper GI bleed: -One episode of coffee ground emesis earlier today, per [facility] staff -H/o hiatal hernia on EGD in Apr 2017 - BUN elevated to 89 -Protonix bolus and drip initiated in ED. Continue drip on the floor -INR is therapeutic at 2.0 -GI consulted-appreciate input -Hold Coumadin, aspirin, fish oil -Hgb of 9.9, which is stable -Hb dropped to <8.0 -Received 1 unit PRBC -Hb Stable -No EGD as long as bleeding stops and Hb remains shima -Will monitor tonight,if Hb stable tomorrow -will discharge -denies any symptoms -no more bleeding -discharge today Lethargy: -A&Ox3 on exam -CT head wnl -UA without evidence of infection -Likely caused by dehydration, elevated BUN -Gentle rehydration -clinically better -PT/OT -can return to [facility] Chronic anemia: -Hgb at new baseline ~9 -Consented, type & crossed. Prbcs held for now. H/o DVTs: -Hold coumadin for now in setting of possible UGI bleed -SCDs -continue coumadin HTN: -Normotensive -Home meds held for now while NPO HLD: -Home meds held for now Diastolic HF: -Euvolemic -Gentle IVF resuscitation in setting of clinical dehydration -monitor for fluid overload CKD III: -Cr of 1.13 today -At baseline -better today DVT Ppx: SCDs Code status: DNR per discussion with patient, living will Vital Signs: Date Time Temp Pulse Resp B/P (MAP) Pulse Ox O2 Delivery O2 Flow Rate FiO2 1/13/18 16:26 36.4 63 18 98 Room Air 06/27/17 16:00 Room Air 06/27/17 15:11 36.4 63 18 121/76 (91) 98 Room Air 06/27/17 08:30 92 Room Air 06/27/17 07:39 36.6 68 18 139/72 (94) 92 Room Air 06/27/17 00:03 36.4 65 16 117/78 (91) 94 Room Air 06/27/17 00:00 Room Air 06/26/17 20:59 80 126/78 (94) 06/26/17 18:31 36.1 75 18 140/79 (99) 100 Room Air 06/26/17 18:15 92 Room Air 06/26/17 18:08 36.5 65 18 92 Lab Results: Results Past 24 Hours Test 06/27/17 06:40 Range/Units White Blood Count 4.49 4.8-10.8 K/uL Red Blood Count 2.67 4.2-5.4 M/uL Hemoglobin 8.2 12.0-16.0 g/dL Hematocrit 25.4 37-47 % Mean Corpuscular Volume 95.1 80-100 fL Mean Corpuscular Hemoglobin 30.7 25-34 pg Mean Corpuscular Hemoglobin Concent 32.3 32-36 g/dl RDW Standard Deviation 54.4 36.4-46.3 fL RDW Coefficient of Variation 16.0 11.5-14.5 % Platelet Count 231 130-400 K/uL Mean Platelet Volume 10.2 7.4-10.4 fL
--- NOTE | 2017-06-27 16:40 | Discharge Instructions ---
Discharge Instructions Date of Service Jun 27, 2017. Admission Reason for Admission: Confusion, Gi Bleed Discharge Discharge Diagnosis / Problem: UGI bleed-stopped spontaneously ,received 1 unit PRBC,Chronic Anemia Discharge Goals Goal(s): Prevent Disease Progression Activity Recommendations Activity Limitations: resume your previous activity . Instructions / Follow-Up Instructions / Follow-Up Please make an appointment with the PCP,Regular Coag clinic follow up . Current Hospital Diet Patient's current hospital diet: Full Liquid Diet, AHA Diet (Heart Healthy) Discharge Diet Recommended Diet: Regular Diet, AHA Diet (Heart Healthy) Pending Studies Studies pending at discharge: no Medical Emergencies . Who to Call and When: Medical Emergencies: If at any time you feel your situation is an emergency, please call 911 immediately. . Non-Emergent Contact Non-Emergency issues call your: Primary Care Provider . Past History Medical & Surgical History: (1) Acute blood loss anemia (2) GI bleed (3) Hyperlipidemia (4) Diastolic heart failure (5) CKD (chronic kidney disease), stage III (6) H/O deep venous thrombosis (7) Chronic anticoagulation (8) Chronic anemia . "Provider Documentation" section prepared by Hans Roy. . VTE Core Measure Inpt VTE Proph given/why not?: Warfarin (Coumadin), SCD's
--- NOTE | 2017-06-28 08:14 | Discharge Summary ---
Discharge Summary Date of Service Jun 28, 2017. Discharge Summary Admission Date: Jun 26, 2017 at 13:04 Discharge Date: Jun 27, 2017 Discharge Disposition: Personal care Principal Diagnosis: UGI bleed-stopped spontaneously ,received 1 unit PRBC,Chronic Anemia Secondary Diagnoses/Problems: Please see H&P and Hospital Progress note Consultations: GI Medication Reconciliation Continued Medications: Acetaminophen (Tylenol Arthritis Ext Rel) 650 Mg Cplt 1300 MG PO QAM, CAP Acetaminophen Tab (Tylenol) 325 Mg Tab 650 MG PO Q6H PRN for Pain or Fever, TAB Allopurinol (Zyloprim) 100 Mg Tab 100 MG PO DAILY, TAB Amlodipine Besylate (Norvasc) 5 Mg Tab 5 MG PO HS, TAB Amoxicillin (Amoxicillin) 500 Mg Cap 2000 MG PO UD PRN for Antibiotic Prophylaxis TAKE THIS MEDICATION ONE HOUR PRIOR TO DENTAL PROCEDURES Aspirin (Aspirin Chewable) 81 Mg Chew 81 MG PO DAILY Atorvastatin (Lipitor) 10 Mg Tab 10 MG PO HS, TAB Coenzyme Q10 (Ubidecarenone) (Coq-10) 100 Mg Cap 100 MG PO DAILY Colchicine (Colchicine) 0.6 Mg Tab 0.6 MG PO Q48HRS, TAB Cyanocobalamin (Vitamin B-12) 500 Mcg Tab 500 MCG PO QAM, TAB Diclofenac Sodium (Topical) (Voltaren 1% Top Gel) 1 % Gel 2 GM TOP Q6H PRN for Shoulder Pain APPLY TO SHOULDERS DIRECTED Emollient (Eucerin Original Healing) 1 Lot Lot 1 APPLN TOP HS APPLY TO FEET Estrogens, Conjugated (Premarin) 14 Appln/30 Gm Cr 1 APPL PV 3XWK PREMARIN 0.625 MG/GM - ONE APPLICATION AT BEDTIME EVERY THURSDAY,THURSDAY AND THURSDAY Ferrous Sulfate (Ferrous Sulfate) 325 Mg Tab 325 MG PO QPM Fish Oil (Rewey-3) 1 Ea Cap 1000 MG PO QAM, CAP Fluticasone Propionate (Nasal) (Flonase Allergy Relief) 50 Mcg/Act Spr 1 SPRAY EVA DAILY Guaifenesin Ext Rel (Mucinex Ext Rel) 600 Mg Tab 600 MG PO Q12 PRN for Cough/Congestion, TAB Hydrocodone/Acetaminophen 5MG/325MG ([place] 5MG/325MG) Tab 0.5 TABLET PO Q4 PRN for Pain, TAB take one half tablet every 4 hours as neeed for pain (pain 2-6 on a scale of 0-10) Hydrocodone/Acetaminophen 5MG/325MG ([place] 5MG/325MG) Tab 1 TABLET PO Q4H PRN for Pain, TAB take 1 tablet every 4 hours as needed for pain ( pain scale of 1-10 on a 1-10 scale) Hydrocodone/Acetaminophen 5MG/325MG ([place] 5MG/325MG) Tab 2 TABLETS PO Q4 PRN for Pain, TAB take 2 tablets every 4 hours as needed for pain ( pain scale 8-10 on a pain scale of 1-10) Lidocaine-Prilocaine (Lidocaine/Prilocaine) 1 Cre Cre 1 APPLN TOP Q6H PRN for Shoulder Pain, GM APLLY DIRECTED TO SHOULDERS Loratadine (Claritin) 10 Mg Tab 10 MG PO Q24H PRN for Seasonal Allergies, TAB Menthol (Topical Analgesic) (Biofreeze) 4 % Gel 1 APPLN TOP Q4H PRN for Pain APPLY A SMALL AMOUNT TO AFFECTED AREA(S) Metronidazole (Topical) (Metrogel) 0.75 % Gel 1 APPLN TOP BID APPLY TO FACE DIRECTED Multiple Vitamins W/ Minerals (Ocuvite Lutein) 1 Cap Cap 1 CAP PO QAM Omeprazole (Prilosec) 20 Mg Capcr 40 MG PO BID, CAP Oxycodone Hcl (Oxycodone Hcl) 5 Mg Cap 2.5 MG PO Q4 PRN for Pain for 30 Days, CAP take 2.5mg every 4 hours as needed for pain if prn norco is ineffective, take 1/2 tablet po prn pain 2-6 on a scale of 0-10 Oxycodone Hcl (Oxycodone Hcl) 5 Mg Cap 5 MG PO Q4H PRN for Pain for 30 Days, #120 CAP take 5mg every 4 hours as needed for pain if prn norco ineffective, take 5mg po prn pain 7-10 on a scale of 0-10 Prednisone (Prednisone) 20 Mg Tab 20 MG PO UD PRN for Gout Flare Up, TAB TAPER DOWN DOSING FOLLOWS: TAKE 3 TABLETS (60 MG) DAILY FOR 1 DAY THEN, TAKE 2 TABLETS (40 MG) DAILY FOR 2 DAYS THEN, TAKE 1 TABLET (20 MG) DAILY FOR 2 DAYS THEN, TAKE 0.5 TABLET (10 MG) DAILY FOR 2 DAYS THEN STOP. Probiotic Product (Probiotic) 1 Cap Cap 1 CAP PO DAILY Sodium Chloride Hypertonic (Jim 128) 5 % Aura 1 DROP OPB TID Triamcinolone Acet (Triamcinolone Acetonide) 0.5 % Cre 1 APPLN TOP AMPM APPLY TO LOWER EXTREMITIES DIRECTED Warfarin Sod (Coumadin) 2.5 Mg Tab 2.5 MG PO 6XWK TAKE 2.5 MG EVERY THURSDAY,THURSDAY,THURSDAY,THURSDAY,THURSDAY AND THURSDAY OR OTHERWISE DIRECTED TO TAKE BY ANTICOAGULATION CLINIC/MD Warfarin Sod (Coumadin) 2.5 Mg Tab 1.25 MG PO WK TAKE HALF A TABLET (1.25 MG) EVERY THURSDAY OR OTHERWISE DIRECTED TO TAKE BY ANTICOAGULATION CLINIC/MD Admission Information HPI (per Admitting provider): This is a 87yo F with a PMH of HTN, diastolic HF, HLD, 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 Patient lives in assisted living at [facility]. Her daughter is at bedside and states that patient was in her normal state of health yesterday. Today, patient felt very fatigued and slept on and off for most of the morning. Per report from [facility], patient had one episode of coffee ground emesis while lying in bed. Patient states that she felt nauseous earlier today but is too tired to remember vomiting. Poor PO intake today. Denies any abdominal pain. Was admitted in April with melena and had an EGD performed which revealed a large hiatal hernia. Was discharged on protonix PO BID. Per daughter, this dose was recently decreased to once a day and patient started to have symptoms of acid reflux and upset stomach, so dose was resumed to twice daily. Is on chronic anticoagulation for a history of lower extremity DVTs. Patient currently endorses fatigue but denies fever, chills, headache, lightheadedness, visual changes, CP, SOB, abd pain, melena or hematochezia. Past Medical/Surgical History Medical Problems: (1) Chronic anemia Status: Chronic (2) Chronic anticoagulation Status: Chronic (3) CKD (chronic kidney disease), stage III Status: Chronic (4) Diastolic heart failure Status: Chronic (5) H/O deep venous thrombosis Status: Chronic (6) Hyperlipidemia Status: Chronic (7) Hypertension Status: Chronic Family History No pertinent family history Social History Smoking Status: Former Smoker Drug Use: none Marital Status: Housing status: assisted living Occupational Status: retired Allergies Coded Allergies: No Known Allergies (Unverified , 06/24/17) Home Medications Scheduled Acetaminophen (Tylenol Arthritis Ext Rel), 1,300 MG PO QAM Allopurinol (Zyloprim), 100 MG PO DAILY Amlodipine Besylate (Norvasc), 5 MG PO HS Aspirin (Aspirin Chewable), 81 MG PO DAILY Atorvastatin (Lipitor), 10 MG PO HS Coenzyme Q10 (Ubidecarenone) (Coq-10), 100 MG PO DAILY Colchicine (Colchicine), 0.6 MG PO Q48HRS Cyanocobalamin (Vitamin B-12), 500 MCG PO QAM Emollient (Eucerin Original Healing), 1 APPLN TOP HS Estrogens, Conjugated (Premarin), 1 APPL PV 3XWK Ferrous Sulfate (Ferrous Sulfate), 325 MG PO QPM Fish Oil (Rewey-3), 1,000 MG PO QAM Fluticasone Propionate (Nasal) (Flonase Allergy Relief), 1 SPRAY EVA DAILY Metronidazole (Topical) (Metrogel), 1 APPLN TOP BID Multiple Vitamins W/ Minerals (Ocuvite Lutein), 1 CAP PO QAM Omeprazole (Prilosec), 40 MG PO BID Probiotic Product (Probiotic), 1 CAP PO DAILY Sodium Chloride Hypertonic (Jim 128), 1 DROP OPB TID Triamcinolone Acet (Triamcinolone Acetonide), 1 APPLN TOP AMPM Warfarin Sod (Coumadin), 2.5 MG PO 6XWK Warfarin Sod (Coumadin), 1.25 MG PO WK Scheduled PRN Acetaminophen Tab (Tylenol), 650 MG PO Q6H PRN for Pain or Fever Amoxicillin (Amoxicillin), 2,000 MG PO UD PRN for Antibiotic Prophylaxis Diclofenac Sodium (Topical) (Voltaren 1% Top Gel), 2 GM TOP Q6H PRN for Shoulder Pain Guaifenesin Ext Rel (Mucinex Ext Rel), 600 MG PO Q12 PRN for Cough/Congestion Hydrocodone/Acetaminophen 5MG/325MG ([place] 5MG/325MG), 0.5 TABLET PO Q4 PRN for Pain Hydrocodone/Acetaminophen 5MG/325MG ([place] 5MG/325MG), 1 TABLET PO Q4H PRN for Pain Hydrocodone/Acetaminophen 5MG/325MG ([place] 5MG/325MG), 2 TABLETS PO Q4 PRN for Pain Lidocaine-Prilocaine (Lidocaine/Prilocaine), 1 APPLN TOP Q6H PRN for Shoulder Pain Loratadine (Claritin), 10 MG PO Q24H PRN for Seasonal Allergies Menthol (Topical Analgesic) (Biofreeze), 1 APPLN TOP Q4H PRN for Pain Oxycodone Hcl (Oxycodone Hcl), 2.5 MG PO Q4 PRN for Pain Oxycodone Hcl (Oxycodone Hcl), 5 MG PO Q4H PRN for Pain Prednisone (Prednisone), 20 MG PO UD PRN for Gout Flare Up Review of Systems Ten systems reviewed and negative except as noted in the HPI. Physical Ex - H&P Physical Exam Vital Signs Date Time Temp Pulse Resp B/P (MAP) Pulse Ox O2 Delivery O2 Flow Rate FiO2 06/24/17 20:55 37.2 93 20 103/52 95 Room Air 06/24/17 20:39 93 19 93 06/24/17 20:16 142/87 06/24/17 19:00 95 19 123/52 96 06/24/17 18:57 88 18 133/73 97 Room Air 06/24/17 17:35 88 18 94 06/24/17 17:05 87 19 95 06/24/17 17:00 146/85 06/24/17 16:35 89 17 94 06/24/17 16:30 134/80 06/24/17 16:26 91 13 06/24/17 16:11 92 15 06/24/17 16:11 92 06/24/17 15:31 36.9 98 18 109/66 96 Room Air General Appearance: no apparent distress, + pertinent finding (Resting comfortably, lethargic but answered all questions ) Head: normocephalic, atraumatic Eyes: normal inspection, PERRL, sclerae normal ENT: normal ENT inspection, hearing grossly normal, pharynx normal (dry mucous membranes ) Neck: supple, thyroid normal, trachea midline Respiratory/Chest: chest non-tender, lungs clear, normal breath sounds, no respiratory distress, no accessory muscle use Cardiovascular: regular rate, rhythm, no edema, normal peripheral pulses Abdomen/GI: non tender, soft, no organomegaly Extremities/Musculoskelatal: normal inspection, no calf tenderness, no pedal edema Neurologic/Psych: no motor/sensory deficits, alert, normal mood/affect, oriented x 3 (Not oriented to situation.) Skin: normal color, warm/dry Diagnostics - H&P Diagnostics Laboratory Results Results Past 24 Hours Test 06/24/17 16:12 06/24/17 16:18 06/24/17 19:32 06/24/17 19:50 Range/Units White Blood Count 9.12 4.8-10.8 K/uL Red Blood Count 3.04 4.2-5.4 M/uL Hemoglobin 9.9 12.0-16.0 g/dL Hematocrit 29.5 37-47 % Mean Corpuscular Volume 97.0 80-100 fL Mean Corpuscular Hemoglobin 32.6 25-34 pg Mean Corpuscular Hemoglobin Concent 33.6 32-36 g/dl Platelet Count 257 130-400 K/uL Mean Platelet Volume 10.3 7.4-10.4 fL Neutrophils (%) (Auto) 79.4 % Lymphocytes (%) (Auto) 13.6 % Monocytes (%) (Auto) 6.3 % Eosinophils (%) (Auto) 0.2 % Basophils (%) (Auto) 0.1 % Neutrophils # (Auto) 7.24 1.4-6.5 K/uL Lymphocytes # (Auto) 1.24 1.2-3.4 K/uL Monocytes # (Auto) 0.57 0.11-0.59 K/uL Eosinophils # (Auto) 0.02 0-0.5 K/uL Basophils # (Auto) 0.01 0-0.2 K/uL RDW Standard Deviation 50.2 36.4-46.3 fL RDW Coefficient of Variation 14.2 11.5-14.5 % Immature Granulocyte % (Auto) 0.4 % Immature Granulocyte # (Auto) 0.04 0.00-0.02 K/uL Venous Blood pH 7.38 7.36-7.41 Venous Blood Partial Pressure CO2 40 38.0-50.0 mmHg Venous Blood Partial Pressure O2 24 mmHg Venous Blood HCO3 24 mmol/L Venous Blood Oxygen Saturation < 60.0 % Venous Blood Base Excess -1.5 mEq/L Sodium Level 142 136-145 mmol/L Potassium Level 4.2 3.5-5.1 mmol/L Chloride Level 109 98-107 mmol/L Carbon Dioxide Level 24 21-32 mmol/L Anion Gap 9.0 3-11 mmol/L Blood Urea Nitrogen 89 7-18 mg/dl Creatinine 1.13 0.60-1.20 mg/dl Estimated GFR () 50.6 Estimated GFR (Non- 43.7 BUN/Creatinine Ratio 78.3 10-20 Random Glucose 118 70-99 mg/dl Calcium Level 8.8 8.5-10.1 mg/dl Phosphorus Level 2.6 2.5-4.9 mg/dl Magnesium Level 1.9 1.8-2.4 mg/dl Total Bilirubin 0.2 0.2-1 mg/dl Direct Bilirubin < 0.1 0-0.2 mg/dl Aspartate Amino Transf (AST/SGOT) 14 15-37 U/L Alanine Aminotransferase (ALT/SGPT) 27 12-78 U/L Alkaline Phosphatase 104 45-117 U/L Total Protein 6.2 6.4-8.2 gm/dl Albumin 2.7 3.4-5.0 gm/dl Lipase 175 73-393 U/L Bedside Troponin I < 0.030 0-0.045 ng/ml Prothrombin Time 20.5 9.0-12.0 SECONDS Prothromb Time International Ratio 2.0 0.9-1.1 Activated Partial Thromboplast Time 35.9 21.0-31.0 SECONDS Partial Thromboplastin Ratio 1.4 Urine Color YELLOW Urine Appearance CLOUDY CLEAR Urine pH 5.5 4.5-7.5 Urine Specific [place] 1.016 1.000-1.030 Urine Protein NEG NEG Urine Glucose (UA) NEG NEG Urine Ketones NEG NEG Urine Occult Blood 1+ NEG Urine Nitrite NEG NEG Urine Bilirubin NEG NEG Urine Urobilinogen NEG NEG Urine Leukocyte Esterase TRACE NEG Urine WBC (Auto) 1-5 0-5 /hpf Urine RBC (Auto) 0-4 0-4 /hpf Urine Hyaline Casts (Auto) 1-5 0-5 /lpf Urine Epithelial Cells (Auto) >30 0-5 /lpf Urine Bacteria (Auto) NEG NEG Test 06/24/17 21:53 Range/Units White Blood Count 13.18 4.8-10.8 K/uL Red Blood Count 2.74 4.2-5.4 M/uL Hemoglobin 8.8 12.0-16.0 g/dL Hematocrit 26.7 37-47 % Mean Corpuscular Volume 97.4 80-100 fL Mean Corpuscular Hemoglobin 32.1 25-34 pg Mean Corpuscular Hemoglobin Concent 33.0 32-36 g/dl RDW Standard Deviation 50.9 36.4-46.3 fL RDW Coefficient of Variation 14.5 11.5-14.5 % Platelet Count 262 130-400 K/uL Mean Platelet Volume 10.5 7.4-10.[address] head: IMPRESSION: No acute intracranial findings Chest/Abd XR: IMPRESSION: 1. Lower mediastinal fullness with several mediastinal air-fluid levels. The findings favor a hiatal hernia with possible intrathoracic stomach and possible esophageal dilatation. This could be correlated with clinical evidence for obstruction such as vomiting. 2. No free air or evidence of a bowel obstruction. 3. Lobular density along the left hemidiaphragm. This may reflect elevation/eventration of the left hemidiaphragm or a Bochdalek hernia. However, follow-up nonemergent lateral chest radiograph is recommended for further evaluation. 4. Cholelithiasis. 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 Upper GI bleed: -One episode of coffee ground emesis earlier today, per [facility] staff -H/o hiatal hernia on EGD in Apr 2017 -Lethargic, BUN elevated to 89 -Endorses poor PO intake -Protonix bolus and drip initiated in ED. Continue drip on the floor -INR is therapeutic at 2.0 -GI consulted -Hold coumadin, aspirin, fish oil -Hgb of 9.9, which is stable -Serial H & H Q6 -Gentle IVF -NPO -AM labs Lethargy: -A&Ox3 on exam -CT head wnl -UA without evidence of infection -Likely caused by dehydration, elevated BUN -Gentle rehydration -Neuro checks Chronic anemia: -Hgb at new baseline ~9 -Consented, type & crossed. Prbcs held for now. H/o DVTs: -Hold coumadin for now in setting of possible UGI bleed -SCDs HTN: -Normotensive -Home meds held for now while NPO HLD: -Home meds held for now Diastolic HF: -Euvolemic -Gentle IVF resuscitation in setting of clinical dehydration CKD III: -Cr of 1.13 today -At baseline DVT Ppx: SCDs Code status: DNR per discussion with patient, living will PCP: Maxx Dispo: Telemetry observation. Discharge planning ordered for return to [facility] Patient seen in collaboration with Dr. Moise. Please see addendum. Attending Note: Patient is an 87 yr female with H/O GI bleed and chronic anticoagulation for DVT presents with history of weakness, lethargic-sleeping all day and an episode of coffee ground emesis today. Patient had EGD recently which showed large hiatal hernia, reflex esophagitis and duodenitis. Heme positive rectal exam in ED done by ED physician. Patient denies abdominal pain.Rest as per HPI Physical Exam: General Appearance:Moderately built and nourished, no apparent distress Head: normocephalic, Atraumatic Eyes: normal inspection, EOMI, PERRL Neck: supple, Trachea midline Respiratory/Chest: Normal breath sounds, CTA Cardiovascular: S1, S2, No murmur Abdomen/GI:Soft, Non tender, Bowel sounds present Extremities/Musculoskelatal:normal inspection, 1+ B/L edema Neurologic/Psych:grossly no focal neurological deficits Skin:normal color,warm Assessment and Plan: Upper GI bleeding: Protonix ggt Hold ASA, warfarin IVF Monitor H&H Hb at baseline GI consulted Currently no active bleeding. Will consider reversing INR if active bleeding develops Monitor INR I personally reviewed the record. Patient is interviewed and examined at bedside. Patient's care is coordinated with Padmini Barnes PA-C. Please refer to the documentation above for details of patient's presentation and for discussion of other issues. Level of Care Telemetry Advanced Directives Existing Living Will: Yes Existing Power of Restaurant Front Manager: Yes Resuscitation Status DO NOT RESUSCITATE VTE Prophylaxis VTE Risk Assessment Done? Y/N: Yes Risk Level: Moderate Given or contraindicated: SCD's Social Service Consult Lives in Senior Living Physical Exam (per Admitting): General Appearance: no apparent distress, + pertinent finding (Resting comfortably, lethargic but answered all questions ) Head: normocephalic, atraumatic Eyes: normal inspection, PERRL, sclerae normal ENT: normal ENT inspection, hearing grossly normal, pharynx normal (dry mucous membranes ) Neck: supple, thyroid normal, trachea midline Respiratory/Chest: chest non-tender, lungs clear, normal breath sounds, no respiratory distress, no accessory muscle use Cardiovascular: regular rate, rhythm, no edema, normal peripheral pulses Abdomen/GI: non tender, soft, no organomegaly Extremities/Musculoskelatal: normal inspection, no calf tenderness, no pedal edema Neurologic/Psych: no motor/sensory deficits, alert, normal mood/affect, oriented x 3 (Not oriented to situation.) Skin: normal color, warm/dry Hospital Course This is a 87yo F with a PMH of HTN, diastolic HF, HLD, 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 Upper GI bleed: -One episode of coffee ground emesis earlier today, per [facility] staff -H/o hiatal hernia on EGD in Apr 2017 - BUN elevated to 89 -Protonix bolus and drip initiated in ED. Continue drip on the floor -INR is therapeutic at 2.0 -GI consulted-appreciate input -Hold Coumadin, aspirin, fish oil -Hgb of 9.9, which is stable -Hb dropped to <8.0 -Received 1 unit PRBC -Hb Stable -No EGD as long as bleeding stops and Hb remains shima -Will monitor tonight,if Hb stable tomorrow -will discharge -denies any symptoms -no more bleeding -discharge today Lethargy: -A&Ox3 on exam -CT head wnl -UA without evidence of infection -Likely caused by dehydration, elevated BUN -Gentle rehydration -clinically better -PT/OT -can return to [facility] Chronic anemia: -Hgb at new baseline ~9 -Consented, type & crossed. Prbcs held for now. H/o DVTs: -Hold coumadin for now in setting of possible UGI bleed -SCDs -continue coumadin HTN: -Normotensive -Home meds held for now while NPO HLD: -Home meds held for now Diastolic HF: -Euvolemic -Gentle IVF resuscitation in setting of clinical dehydration -monitor for fluid overload CKD III: -Cr of 1.13 today -At baseline -better today DVT Ppx: SCDs Code status: DNR per discussion with patient, living will Total time spent on discharge = 35 minutes This includes examination of the patient, discharge planning, medication reconciliation, and communication with other providers. Discharge Instructions Date of Service Jun 27, 2017. Admission Reason for Admission: Confusion, Gi Bleed Discharge Discharge Diagnosis / Problem: UGI bleed-stopped spontaneously ,received 1 unit PRBC,Chronic Anemia Discharge Goals Goal(s): Prevent Disease Progression Activity Recommendations Activity Limitations: resume your previous activity . Instructions / Follow-Up Instructions / Follow-Up Please make an appointment with the PCP,Regular Coag clinic follow up . Current Hospital Diet Patient's current hospital diet: Full Liquid Diet, AHA Diet (Heart Healthy) Discharge Diet Recommended Diet: Regular Diet, AHA Diet (Heart Healthy) Pending Studies Studies pending at discharge: no Medical Emergencies . Who to Call and When: Medical Emergencies: If at any time you feel your situation is an emergency, please call 911 immediately. . Non-Emergent Contact Non-Emergency issues call your: Primary Care Provider . Past History Medical & Surgical History: (1) Acute blood loss anemia (2) GI bleed (3) Hyperlipidemia (4) Diastolic heart failure (5) CKD (chronic kidney disease), stage III (6) H/O deep venous thrombosis (7) Chronic anticoagulation (8) Chronic anemia . "Provider Documentation" section prepared by Hans Roy. . VTE Core Measure Inpt VTE Proph given/why not?: Warfarin (Coumadin), SCD's <Electronically signed by Hans Roy M.D.> Signed: 06/27/17 1640 Additional Copies To Petty Mena, Karina
== END 2017-06-27 17:13 | disposition home or self-care (01) | DRG 378 ==
LOC: C.EDB 15:28 → C.MED 19:33 → ENRESERV 20:00 → OBSVTOIN 06-26 13:04 → CANBEDREQ 06-26 14:21 → ENRESERV 06-26 17:15 → C.4E 06-26 18:23
PROVIDERS: ADMIT Internal Medicine; ATTEND Internal Medicine
DX: K92.0 Hematemesis (principal); I50.30 Unspecified diastolic (congestive) heart failure; I13.0 Hypertensive heart and chronic kidney disease with heart failure and stage 1 through stage 4 chronic kidney disease, or unspecified chronic kidney disease; Z86.718 Personal history of other venous thrombosis and embolism; E78.5 Hyperlipidemia, unspecified; Z79.01 Long term (current) use of anticoagulants; D64.9 Anemia, unspecified; N18.3 Chronic kidney disease, stage 3 (moderate); E86.0 Dehydration

== ENCOUNTER 2017-07-20 20:53 | Emergency (ER) | payer OTHER ==
[~2017-07-20] VITALS: Ht 154.9 cm; Wt 80.0 kg
[~2017-07-20 20:53] MED LIST changes: +HYDR-5688 PO; +OXYC1CAP5 PO
[2017-07-20 21:03] VITALS: TEMP 36.7; Ht 154.9 cm; Wt 80.0 kg
[2017-07-21 00:43] LABS: BASO % 0.1 %; BASO ABS # 0.01 K/uL (0-0.2); EOS % 0.2 %; EOS ABS # 0.02 K/uL (0-0.5); HEMATOCRIT 27.4 % (37-47); HEMOGLOBIN 8.6 g/dL (12.0-16.0); IG# 0.04 K/uL (0.00-0.02); LYMPH % 8.7 %; LYMPH ABS # 0.95 K/uL (1.2-3.4); MEAN CELL VOLUME 96.1 fL (80-100); MEAN CORPUSCULAR HEMOGLOBIN 30.2 pg (25-34); MEAN CORPUSCULAR HGB CONC 31.4 g/dl (32-36); MEAN PLATELET VOLUME 10.6 fL (7.4-10.4); MONO % 6.8 %; MONO ABS # 0.74 K/uL (0.11-0.59); NEUT % 83.8 %; NEUT ABS # 9.15 K/uL (1.4-6.5); PLATELET COUNT 209 K/uL (130-400); RED CELL DISTRIBUTION WIDTH CV 16.4 % (11.5-14.5); RED CELL DISTRIBUTION WIDTH SD 57.6 fL (36.4-46.3); WHITE BLOOD COUNT 10.91 K/uL (4.8-10.8)
[2017-07-21 00:58] LABS: CALCIUM 8.4 mg/dl (8.5-10.1); CREATININE 1.25 mg/dl (0.60-1.20)
[2017-07-21 00:59] LABS: INR 3.2 (0.9-1.1); PTT PATIENT 43.2 SECONDS (21.0-31.0)
--- NOTE | 2017-07-21 01:58 | EMERGENCY ROOM VISIT NOTE ---
History Report prepared by Bakari: Alfonzo Sam Under the Supervision of: Donna AlanisO. First contact with patient: 23:50 Chief Complaint: OTHER COMPLAINT Stated Complaint: CHEST PAIN & RIGHT SHOULDER PAIN History of Present Illness The patient is a 87 year old female who presents to the Emergency Room with complaints of a searing chest pain that occurred 1 day ago. The patient states she slipped in the shower and held onto the railing with her right arm when she states that something teared. She denies head strike. Of note, the patient is on Coumadin for a DVT she had in the past. She is currently at [facility]. Source of History: patient, family Onset: 1 day ago Position: chest (right) Quality: burning Timing: constant Associated Symptoms: + chest pain Note: Patient states right shoulder pain. Review of Systems See HPI for pertinent positives & negatives. A total of 10 systems reviewed and were otherwise negative. Past Medical & Surgical Medical Problems: (1) Acute blood loss anemia (2) Chronic anemia (3) Chronic anticoagulation (4) CKD (chronic kidney disease), stage III (5) Diastolic heart failure (6) H/O deep venous thrombosis (7) History of DVT (deep vein thrombosis) (8) Hyperlipidemia (9) Hypertension Family History No pertinent family history Social History Smoking Status: Never Smoker Drug Use: none Marital Status: Housing Status: intermediate Occupation Status: retired Current/Historical Medications Scheduled Acetaminophen (Tylenol Arthritis Ext Rel), 1,300 MG PO QAM Allopurinol (Zyloprim), 100 MG PO DAILY Amlodipine Besylate (Norvasc), 5 MG PO HS Aspirin (Aspirin Chewable), 81 MG PO DAILY Coenzyme Q10 (Ubidecarenone) (Coq-10), 100 MG PO DAILY Colchicine (Colchicine), 0.6 MG PO Q48HRS Cyanocobalamin (Vitamin B-12), 500 MCG PO QAM Emollient (Eucerin Original Healing), 1 APPLN TOP HS Estrogens, Conjugated (Premarin), 1 APPL PV 3XWK Ferrous Sulfate (Ferrous Sulfate), 325 MG PO QPM Fluticasone Propionate (Nasal) (Flonase Allergy Relief), 1 SPRAY EVA DAILY Multiple Vitamins W/ Minerals (Ocuvite Lutein), 1 CAP PO QAM Omeprazole (Prilosec), 40 MG PO BID Probiotic Product (Probiotic), 1 CAP PO DAILY Sodium Chloride Hypertonic (Jim 128), 1 DROP OPB TID Warfarin Sod (Coumadin), 2.5 MG PO 6XWK Warfarin Sod (Coumadin), 1.25 MG PO WK Scheduled PRN Acetaminophen Tab (Tylenol), 650 MG PO Q6H PRN for Pain or Fever Amoxicillin (Amoxicillin), 2,000 MG PO UD PRN for Antibiotic Prophylaxis Diclofenac Sodium (Topical) (Voltaren 1% Top Gel), 2 GM TOP Q6H PRN for Shoulder Pain Guaifenesin Ext Rel (Mucinex Ext Rel), 600 MG PO Q12 PRN for Cough/Congestion Hydrocodone/Acetaminophen 5MG/325MG ([place] 5MG/325MG), 1 TABLET PO Q4H PRN for Pain Hydrocodone/Acetaminophen 5MG/325MG ([place] 5MG/325MG), 2 TABLETS PO Q4 PRN for Pain Lidocaine-Prilocaine (Lidocaine/Prilocaine), 1 APPLN TOP Q6H PRN for Shoulder Pain Loratadine (Claritin), 10 MG PO Q24H PRN for Seasonal Allergies Menthol (Topical Analgesic) (Biofreeze), 1 APPLN TOP Q4H PRN for Pain Oxycodone Hcl (Oxycodone Hcl), 2.5 MG PO Q4 PRN for Pain Oxycodone Hcl (Oxycodone Hcl), 5 MG PO Q4H PRN for Pain Prednisone (Prednisone), 20 MG PO UD PRN for Gout Flare Up Allergies Coded Allergies: No Known Allergies (Unverified , 07/21/17) Physical Exam Vital Signs Date Time Temp Pulse Resp B/P (MAP) Pulse Ox O2 Delivery O2 Flow Rate FiO2 07/20/17 23:20 91 16 136/72 96 Room Air 07/20/17 21:03 36.7 92 16 141/94 97 Room Air Physical Exam CONSTITUTIONAL/VITAL SIGNS: Reviewed / noted above. GENERAL: Non-toxic in appearance. INTEGUMENTARY: Warm, dry, and [place]. HEAD: Normocephalic. EYES: without scleral icterus or trauma. ENT/OROPHARYNX: clear and moist. LYMPHADENOPATHY/NECK: Is supple without lymphadenopathy or meningismus. RESPIRATORY: Lungs clear and equal. CARDIOVASCULAR: Regular rate and rhythm. GI/ABDOMEN: Soft and nontender. No organomegaly or pulsatile mass. No rebound or guarding. Normal bowel sounds. EXTREMITIES: Warm and well perfused. BACK: No CVA tenderness. NEUROLOGICAL: Intact without focal deficits. PSYCHIATRIC: normal affect. MUSCULOSKELETAL: Normally developed with good muscle tone. CHEST: Ecchymotic area on the left and center of the chest; no palpable hematoma. Medical Decision & Procedures ER Provider Diagnostic Interpretation: Radiology results as stated below per my review and radiologist interpretation: Chest x-ray:per my interpretation is negative for acute disease. No pneumothorax or pneumonia. No rib fractures. Laboratory Results 07/21/17 00:21 Red Blood Count 2.85, Mean Corpuscular Volume 96.1, Mean Corpuscular Hemoglobin 30.2, Mean Corpuscular Hemoglobin Concent 31.4, Mean Platelet Volume 10.6, Neutrophils (%) (Auto) 83.8, Lymphocytes (%) (Auto) 8.7, Monocytes (%) (Auto) 6.8, Eosinophils (%) (Auto) 0.2, Basophils (%) (Auto) 0.1, Neutrophils # (Auto) 9.15, Lymphocytes # (Auto) 0.95, Monocytes # (Auto) 0.74, Eosinophils # (Auto) 0.02, Basophils # (Auto) 0.01 07/21/17 00:21 Test 07/21/17 00:21 White Blood Count 10.91 K/uL (4.8-10.8) Red Blood Count 2.85 M/uL (4.2-5.4) Hemoglobin 8.6 g/dL (12.0-16.0) Hematocrit 27.4 % (37-47) Mean Corpuscular Volume 96.1 fL (80-100) Mean Corpuscular Hemoglobin 30.2 pg (25-34) Mean Corpuscular Hemoglobin Concent 31.4 g/dl (32-36) Platelet Count 209 K/uL (130-400) Mean Platelet Volume 10.6 fL (7.4-10.4) Neutrophils (%) (Auto) 83.8 % Lymphocytes (%) (Auto) 8.7 % Monocytes (%) (Auto) 6.8 % Eosinophils (%) (Auto) 0.2 % Basophils (%) (Auto) 0.1 % Neutrophils # (Auto) 9.15 K/uL (1.4-6.5) Lymphocytes # (Auto) 0.95 K/uL (1.2-3.4) Monocytes # (Auto) 0.74 K/uL (0.11-0.59) Eosinophils # (Auto) 0.02 K/uL (0-0.5) Basophils # (Auto) 0.01 K/uL (0-0.2) RDW Standard Deviation 57.6 fL (36.4-46.3) RDW Coefficient of Variation 16.4 % (11.5-14.5) Immature Granulocyte % (Auto) 0.4 % Immature Granulocyte # (Auto) 0.04 K/uL (0.00-0.02) Polychromasia 1+ Basophilic Stippling OCCASIONAL Anisocytosis PRESENT Prothrombin Time 32.7 SECONDS (9.0-12.0) Prothromb Time International Ratio 3.2 (0.9-1.1) Activated Partial Thromboplast Time 43.2 SECONDS (21.0-31.0) Partial Thromboplastin Ratio 1.7 Anion Gap 8.0 mmol/L (3-11) Est Creatinine Clear Calc Drug Dose 30.4 ml/min Estimated GFR () 44.8 Estimated GFR (Non- 38.6 BUN/Creatinine Ratio 29.0 (10-20) Calcium Level 8.4 mg/dl (8.5-10.1) Laboratory results as stated above per my review. ED Course 2350: Previous medical records were reviewed. The patient was evaluated in room C2B. A complete history and physical examination was performed. 0200: On reevaluation, the patient is doing well. I discussed the results and findings with the patient. She verbalized agreement of the treatment plan. The patient was discharged home. Medical Decision the differential was considered includes acute myocardial infarction, acute coronary syndrome, myocarditis, pericarditis, pericardial effusions /tamponad, esophageal perforation, thoracic aortic dissection, pulmonary embolism, pneumonia, pneumothorax, pancreatitis, shingles, acute cholecystitis, perforated abdominal viscus. This is a 87-year-old female who presents to the ED with a chief complaint of contusion today chest wall. The patient states that she was getting out of the shower about 24 hours ago and she grabbed a bar to help herself out. She states that she just suddenly developed pain in her right shoulder and chest area. Bruising was noticed tonight at the nursing facility. She was sent here for evaluation. The patient has a ecchymotic area over the right and mid chest wall. There is no obvious hematomas. Her hemoglobin today is 8.6. The last time was checked in June was a 8.2. She appears to be chronically anemic in the eights on other tests as well. She is on Coumadin and her INR is 3.2. White blood count was 10.9. PRP was unremarkable. BUN of 36. Chest x-ray did not show any acute The patient was told the results the test. She is felt to be stable for discharge. There does not appear to be any clinical ongoing hemorrhage. I did recommend that she discontinue her Coumadin over the next couple of days and then talk to her doctor about restarting it. The patient is felt to be stable for discharge. Medication Reconcilliation Current Medication List: was personally reviewed by me Blood Pressure Screening Patient's blood pressure: Normal blood pressure Blood pressure disposition: Did not require urgent referral Impression Primary Impression: Chest wall contusion Additional Impression: Chronic anemia Scribe Attestation The scribe's documentation has been prepared under my direction and personally reviewed by me in its entirety. I confirm that the note above accurately reflects all work, treatment, procedures, and medical decision making performed by me. Departure Information Referrals Petty Mena, C.R.N.P. (PCP) Patient Instructions My [facility] Additional Instructions Stop Coumadin for the next 2 days. Talk to your doctor about rechecking your level and urine hemoglobin. Follow-up with your doctor for further care and evaluation in 1-2 days. Return to the emergency department for worsening or new symptoms or any concerns. You have been examined and treated today on an emergency basis only. This is not a substitute for, or an effort to provide, complete comprehensive medical care. It is impossible to recognize and treat all injuries or illnesses in a single emergency department visit. It is therefore important that you follow up closely with your doctor. Call as soon as possible for an appointment. Problem Qualifiers
[2017-07-21 02:37] VITALS: BP 131/73; PULSE 94; O2SAT 94
--- NOTE | 2017-07-21 06:36 | DIAGNOSTIC IMAGING REPORT ---
CHEST ONE VIEW PORTABLE CLINICAL HISTORY: cp dyspnea COMPARISON STUDY: 06/24/2017 FINDINGS: Mild stable cardia megaly. External hernia. Lungs are considered clear. Diaphragms smooth. IMPRESSION: Hiatal hernia. Mild cardia megaly. The above report was generated using voice recognition software. It may contain grammatical, syntax or spelling errors. Electronically signed by: Douglas Givens M.D. 07/21/2017 6:34 AM Dictated Date/Time: 07/21/2017 6:33 AM
== END 2017-07-21 02:37 | disposition home or self-care (01) ==
LOC: EDBD 20:53 → C.EDC 20:54
DX: S20.211A Contusion of right front wall of thorax, initial encounter (principal); D64.9 Anemia, unspecified; W18.40XA Slipping, tripping and stumbling without falling, unspecified, initial encounter; Y93.E1 Activity, personal bathing and showering; Y92.121 Bathroom in nursing home as the place of occurrence of the external cause; I13.0 Hypertensive heart and chronic kidney disease with heart failure and stage 1 through stage 4 chronic kidney disease, or unspecified chronic kidney disease; N18.3 Chronic kidney disease, stage 3 (moderate); I50.30 Unspecified diastolic (congestive) heart failure; E78.5 Hyperlipidemia, unspecified; Z79.82 Long term (current) use of aspirin; Z79.01 Long term (current) use of anticoagulants; Z86.718 Personal history of other venous thrombosis and embolism

== ENCOUNTER 2017-07-23 10:01 | Inpatient (IN) | payer OTHER ==
[2017-07-23] VITALS (9 sets, daily range): BP systolic 111–135; BP diastolic 68–77; PULSE 71–83; TEMP 36.3–36.5; O2SAT 95–100; Ht 154.9 cm; Wt 85.0 kg
[~2017-07-23] VITALS: Ht 154.9 cm; Wt 85.0 kg
[~2017-07-23 10:01] MED LIST changes: -ATOR10TA82 PO; -METR0.7527 TOP; -OMEG10007 PO; -TRIA0.5C4 TOP
[2017-07-23 11:00] LABS: BASO % 0.3 %; BASO ABS # 0.02 K/uL (0-0.2); EOS % 4.3 %; EOS ABS # 0.34 K/uL (0-0.5); HEMATOCRIT 22.5 % (37-47); HEMOGLOBIN 7.3 g/dL (12.0-16.0); IG# 0.05 K/uL (0.00-0.02); LYMPH ABS # 1.18 K/uL (1.2-3.4); MEAN CELL VOLUME 97.8 fL (80-100); MEAN CORPUSCULAR HEMOGLOBIN 31.7 pg (25-34); MEAN CORPUSCULAR HGB CONC 32.4 g/dl (32-36); MEAN PLATELET VOLUME 10.7 fL (7.4-10.4); MONO % 10.9 %; MONO ABS # 0.86 K/uL (0.11-0.59); NEUT % 68.9 %; NEUT ABS # 5.43 K/uL (1.4-6.5); PLATELET COUNT 239 K/uL (130-400); RED CELL DISTRIBUTION WIDTH CV 16.7 % (11.5-14.5); RED CELL DISTRIBUTION WIDTH SD 58.9 fL (36.4-46.3); WHITE BLOOD COUNT 7.88 K/uL (4.8-10.8)
[2017-07-23 11:07] LABS: INR 1.2 (0.9-1.1)
[2017-07-23 11:12] LABS: CALCIUM 8.3 mg/dl (8.5-10.1); CREATININE 1.18 mg/dl (0.60-1.20); POTASSIUM 3.4 mmol/L (3.5-5.1)
--- NOTE | 2017-07-23 12:03 | History and Physical ---
History & Physical Date & Time of Service: Jul 23, 2017 at 12:03 Chief Complaint: Abnormal Labs Primary Care Physician: Petty Mena, CindaRCortesNCortesPCortes History of Present Illness Source: patient This is a 87 yo f with past medical hx of HTN , diastolic HF , HLD, H/O DVT on chronic anticoagulation , chronic anemia , CKD stage 3 , Hiatal hernia - resident at [facility] presents to ER with anemia -out pt Lab showed Hb 6.7 pt was evaluated in [facility] ER on 07/20/17 -with complain of Rt shoulder and chest wall pain she was taking shower and slipped , held on to shower handle with right hand to break the fall , no direct trauma or fall occurred had excruciating pain in anterior chest wall and rt shoulder in visit : Chest Xray was un remarkable , pt had diffuse bruise on anterior chest wall Hb was 8.6 , INR 3.2 pt was discharged form ER , [facility], the patient's hemoglobin was 10.8 six days ago (Jul 17), and was 8.8 two days ago (Jul 21). Past Medical/Surgical History Medical Problems: (1) Chronic anemia Status: Chronic (2) Chronic anticoagulation Status: Chronic (3) CKD (chronic kidney disease), stage III Status: Chronic (4) Diastolic heart failure Status: Chronic (5) H/O deep venous thrombosis Status: Chronic (6) Hyperlipidemia Status: Chronic (7) Hypertension Status: Chronic Family History No pertinent family history Social History Smoking Status: Former Smoker Drug Use: none Marital Status: Housing status: assisted living Occupational Status: retired Allergies Coded Allergies: No Known Allergies (Unverified , 07/23/17) Home Medications Scheduled Acetaminophen (Tylenol Arthritis Ext Rel), 1,300 MG PO QAM Allopurinol (Zyloprim), 100 MG PO 0600 Amlodipine Besylate (Norvasc), 5 MG PO HS Aspirin (Aspirin Chewable), 81 MG PO 0600 Coenzyme Q10 (Ubidecarenone) (Coq-10), 100 MG PO 0600 Colchicine (Colchicine), 0.6 MG PO Q48HRS Cyanocobalamin (Vitamin B-12), 500 MCG PO QAM Estrogens, Conjugated (Premarin), 1 APPL PV 3XWK Ferrous Sulfate (Ferrous Sulfate), 325 MG PO QPM Fluticasone Propionate (Nasal) (Flonase Allergy Relief), 1 SPRAY EVA 0600 Multiple Vitamins W/ Minerals (Ocuvite Lutein), 1 CAP PO QAM Omeprazole (Prilosec), 40 MG PO BID Probiotic Product (Probiotic), 1 CAP PO 0600 Sodium Chloride Hypertonic (Jim 128), 1 DROP OPB TID Warfarin Sod (Coumadin), 2.5 MG PO 6XWK Warfarin Sod (Coumadin), 1.25 MG PO WK Scheduled PRN Acetaminophen Tab (Tylenol), 650 MG PO Q6H PRN for Pain or Fever Amoxicillin (Amoxicillin), 2,000 MG PO UD PRN for Antibiotic Prophylaxis Diclofenac Sodium (Topical) (Voltaren 1% Top Gel), 2 GM TOP Q6H PRN for Shoulder Pain Guaifenesin Ext Rel (Mucinex Ext Rel), 600 MG PO Q12 PRN for Cough/Congestion Hydrocodone/Acetaminophen 5MG/325MG ([place] 5MG/325MG), 1 TABLET PO Q4H PRN for Pain Hydrocodone/Acetaminophen 5MG/325MG ([place] 5MG/325MG), 2 TABLETS PO Q4 PRN for Pain Lidocaine-Prilocaine (Lidocaine/Prilocaine), 1 APPLN TOP Q6H PRN for Shoulder Pain Loratadine (Claritin), 10 MG PO Q24H PRN for Seasonal Allergies Oxycodone Hcl (Oxycodone Hcl), 2.5 MG PO Q4 PRN for Pain Oxycodone Hcl (Oxycodone Hcl), 5 MG PO Q4H PRN for Pain Prednisone (Prednisone), 20 MG PO UD PRN for Gout Flare Up Physical Exam Vital Signs Date Time Temp Pulse Resp B/P (MAP) Pulse Ox O2 Delivery O2 Flow Rate FiO2 07/23/17 11:02 82 17 119/68 97 07/23/17 10:23 36.7 85 18 118/67 96 Room Air 07/23/17 10:09 87 General Appearance: no apparent distress Head: normocephalic, atraumatic Eyes: sclerae normal ENT: normal ENT inspection Neck: thyroid normal, trachea midline Respiratory/Chest: lungs clear, normal breath sounds, + pertinent finding ( tenderness on chest wall in rt upper and lateral area , no flactuation noted, diffuse eccymosis on ant chest wall ) Cardiovascular: regular rate, rhythm, no edema, normal peripheral pulses Abdomen/GI: normal bowel sounds, non tender, soft Back: + pertinent finding (ecchymosis on rt upper flank area -extending form ant chest wall ) Extremities/Musculoskelatal: + pertinent finding (diffuse eccymosis on anterior chest wall , most prominent on rt side , eccymois extends to rt axillary area and rt upper flank ; + tenderness ) Neurologic/Psych: no motor/sensory deficits, alert, normal mood/affect Skin: + pertinent finding (diffuse eccymosis on ant chest wall/rt axially area and rt upper flank ) Diagnostics Laboratory Results Results Past 24 Hours Test 07/23/17 10:19 Range/Units White Blood Count 7.88 4.8-10.8 K/uL Red Blood Count 2.30 4.2-5.4 M/uL Hemoglobin 7.3 12.0-16.0 g/dL Hematocrit 22.5 37-47 % Mean Corpuscular Volume 97.8 80-100 fL Mean Corpuscular Hemoglobin 31.7 25-34 pg Mean Corpuscular Hemoglobin Concent 32.4 32-36 g/dl Platelet Count 239 130-400 K/uL Mean Platelet Volume 10.7 7.4-10.4 fL Neutrophils (%) (Auto) 68.9 % Lymphocytes (%) (Auto) 15.0 % Monocytes (%) (Auto) 10.9 % Eosinophils (%) (Auto) 4.3 % Basophils (%) (Auto) 0.3 % Neutrophils # (Auto) 5.43 1.4-6.5 K/uL Lymphocytes # (Auto) 1.18 1.2-3.4 K/uL Monocytes # (Auto) 0.86 0.11-0.59 K/uL Eosinophils # (Auto) 0.34 0-0.5 K/uL Basophils # (Auto) 0.02 0-0.2 K/uL RDW Standard Deviation 58.9 36.4-46.3 fL RDW Coefficient of Variation 16.7 11.5-14.5 % Immature Granulocyte % (Auto) 0.6 % Immature Granulocyte # (Auto) 0.05 0.00-0.02 K/uL Polychromasia 1+ Hypochromasia PRESENT Prothrombin Time 12.2 9.0-12.0 SECONDS Prothromb Time International Ratio 1.2 0.9-1.1 Activated Partial Thromboplast Time 38.0 21.0-31.0 SECONDS Partial Thromboplastin Ratio 1.5 Sodium Level 140 136-145 mmol/L Potassium Level 3.4 3.5-5.1 mmol/L Chloride Level 110 98-107 mmol/L Carbon Dioxide Level 22 21-32 mmol/L Anion Gap 9.0 3-11 mmol/L Blood Urea Nitrogen 31 7-18 mg/dl Creatinine 1.18 0.60-1.20 mg/dl Est Creatinine Clear Calc Drug Dose 33.2 ml/min Estimated GFR () 48.0 Estimated GFR (Non- 41.4 BUN/Creatinine Ratio 25.8 10-20 Random Glucose 153 70-99 mg/dl Calcium Level 8.3 8.5-10.1 mg/dl Diagnostic Radiology CT ABDOMEN /PELVIS WITH OUT CONTRAST : IMPRESSION: 1. No evidence of intra-abdominal or pelvic hemorrhage 2. No evidence of bowel obstruction. No evidence of free air 3. Colonic diverticulosis 4. Large hiatal hernia with intrathoracic stomach 5. Cholelithiasis. Porcelain gallbladder. CT CHEST WITHOUT CONTRAST : 1.Right anterior chest wall hematoma measuring 9x3 cm 2.Significant surrounding soft tissue edematous change/and or contusion of the rt lateral chest wall extending to superior right flank 3.Non displaced cortical fracture rt sixth rib 4. Large fixed hiatal hernia 5. Lungs are clear CHEST XRAY : IMPRESSION: 1. No acute fracture or dislocation. 2. Severe degenerative changes of the glenohumeral and AC joints. 3. Markedly decreased acromiohumeral interval is compatible with underlying rotator cuff disease. EKG Vent. rate 76 BPM CO interval 216 ms QRS duration 86 ms QT/QTc 364/409 ms P-R-T axes 72 24 51 Sinus rhythm with sinus arrhythmia with 1st degree A-V block Otherwise normal ECG When compared with ECG of 24-JUN-2017 16:07, No significant change was found Impression Assessment and Plan ANT CHEST WALL HEMATOMA : spontaneous hematoma followed by holding on to bathtub /wall handle to break the fall -incident occurred : 48 hrs back on Coumadin for hx of lower ext DVT , INR was 3.5 during ER presentation on 11/30 for above was asked to not to take Coumadin INR 1.2 today developed worsening of ecchymosis on ant wall with drop in hb pain was resolved this AM CT chest shows large 9X 3 cm ant wall hematoma admit to medical floor , pain control symptomatic management surgery eval requested all anticoagulation /antiplatelets D/aury ACUTE BLOOD LOSS ANEMIA : due to above Hb dropped for 10 ( 07/17/17 ) _> 8.6 on 07/21/17 -> 7.3 denies of any symptom of dizzy spell or lightheadedness/VILLANUEVA ordered for 1 Unit of PRBC tx follow H&H q 12 , avoid anticoagulation /antiplatelets NON DISPLACED CORTICAL RT 6 TH RIB FX : pain control incentive spirometry RT SHOULDER PAIN : Xray of Shoulder : IMPRESSION: 1. No acute fracture or dislocation. 2. Severe degenerative changes of the glenohumeral and AC joints. 3. Markedly decreased acromiohumeral interval is compatible with underlying rotator cuff disease. Pt was seen by Dr Todd in past Ortho eval requested LOW k : replaced follow lytes HX OF DVT OF COUMADIN hx of Provokes left lower ext approx 2 yrs back pt had injured her left knee had limited mobility had episode of GI bleed few weeks back now presents with spontaneous ant chest wall hematoma /acute blood loss anemia given recurrent bleeding complication and one single episode of provoked DVT > 24 months of anticoagulation Coumadin will be discontinued -no indication for prolong anticoagulation / bleeding risks family updated, in agreement with plan HYPERLIPIDEMIA : cont statin HTN : cont put pt meds CKD STAGE 3 Cr at baseline follow PRP CODE STATUS : d/w pt has living will DNR/DNI DISPOSITION : resident at [facility] independent living -expected to return [facility] once medially stable PT/OT eval requested Social service consulted for discharge planning VTE Prophylaxis VTE Risk Assessment Done? Y/N: Yes Risk Level: Moderate
[2017-07-23] MEDS ORDERED: POTASSIUM CHLORIDE 10 MEQ TABCR PO STA (12:10)
--- NOTE | 2017-07-23 12:18 | DIAGNOSTIC IMAGING REPORT ---
R SHOULDER MIN 2 VIEWS ROUTINE HISTORY: 87 years-old Female r shoulder strain acute right shoulder pain COMPARISON: Right shoulder radiographs 06/16/2017 TECHNIQUE: 3 views of the right shoulder FINDINGS: Severe right glenohumeral and right AC joint degenerative changes. Humeral head is high right within the glenoid fossa with markedly decreased acromiohumeral interval. 7 mm corticated bone fragment superior lateral to the acromium may reflect remote fracture fragment. No acute fracture or dislocation. Soft tissues are unremarkable. Imaged lung barajas appear clear. IMPRESSION: 1. No acute fracture or dislocation. 2. Severe degenerative changes of the glenohumeral and AC joints. 3. Markedly decreased acromiohumeral interval is compatible with underlying rotator cuff disease. The above report was generated using voice recognition software. It may contain grammatical, syntax or spelling errors. Electronically signed by: Jaden Anglin M.D. 07/23/2017 12:16 PM Dictated Date/Time: 07/23/2017 12:13 PM
[2017-07-23] MEDS ORDERED: ALUMINUM/MAGNESIUM/SIMETH (MAALOX MAX) 30 ML UDC PO PRN (12:45)
[2017-07-23] MEDS ORDERED: ONDANSETRON INJ 2 MG/ML 2 ML VIAL IV PRN (12:45)
[2017-07-23] MEDS ORDERED: MAGNESIUM HYDROXIDE SUSP 30 ML UDC PO PRN (12:45)
[2017-07-23] MEDS ORDERED: ACETAMINOPHEN 325 MG TAB PO PRN ×2 (12:45→13:00)
[2017-07-23] MEDS ORDERED: DICLOFENAC SOD 1% GEL 100 GM TUBE EXT PRN (13:00)
[2017-07-23] MEDS ORDERED: GUAIFENESIN 600 MG TABCR PO PRN (13:00)
[2017-07-23] MEDS ORDERED: LORATADINE 10 MG TAB PO PRN (13:00)
[2017-07-23] MEDS ORDERED: OXYCODONE HCL IR 5 MG TAB (IMMEDIATE RELEASE) PO PRN ×2 (13:00)
[2017-07-23] MEDS ORDERED: LIDOCAINE/PRILOCAINE 2.5% EA CRM EXT PRN (13:00)
[2017-07-23] MEDS ORDERED: HYDROCODONE/ACETAMIN 5/325MG TAB PO PRN ×2 (13:00)
--- NOTE | 2017-07-23 13:54 | DIAGNOSTIC IMAGING REPORT ---
CT SCAN OF THE ABDOMEN AND PELVIS WITHOUT CONTRAST CLINICAL HISTORY: hematoma /anemia /rule out retroperitoneal bleed COMPARISON STUDY: No previous studies for comparison. TECHNIQUE: CT scan of the abdomen and pelvis was performed from the lung bases to the proximal femurs. Images are reviewed in the axial, sagittal, and coronal planes. IV contrast was not administered for this examination. A dose lowering technique was utilized adhering to the principles of ALARA. CT DOSE: FINDINGS: Lower chest: There is a large hiatal hernia, with an intrathoracic stomach.. There are mild basilar atelectatic changes. There is a trace left pleural effusion Liver: The unenhanced liver is normal in size, contour, and attenuation. There is no intrahepatic biliary ductal dilatation. Gallbladder: There is a porcelain gallbladder. Gallbladder calculi are also present. Spleen: Normal in size and attenuation. Pancreas: Unremarkable. Adrenal glands: Unremarkable. Kidneys: No renal, ureteral, or bladder calculi are visualized. There is no significant hydronephrosis. Bowel: There are no transition zones indicate bowel obstruction. There is colonic diverticulosis. There are no acute peridiverticular inflammatory changes. There is no evidence of acute appendicitis. Peritoneum: There is no intraperitoneal free air or abdominal ascites. There is small fat-containing hernias. Vasculature: The abdominal aorta is normal in course and caliber. Adenopathy: None. Pelvic viscera: The bladder, and pelvic viscera are unremarkable. Skeletal structures: No destructive osseous lesions are seen. IMPRESSION: 1. No evidence of intra-abdominal or pelvic hemorrhage 2. No evidence of bowel obstruction. No evidence of free air 3. Colonic diverticulosis 4. Large hiatal hernia with intrathoracic stomach 5. Cholelithiasis. Porcelain gallbladder. Electronically signed by: Héctor Stoddard M.D. 07/23/2017 1:53 PM Dictated Date/Time: 07/23/2017 1:49 PM
--- NOTE | 2017-07-23 13:56 | EMERGENCY ROOM VISIT NOTE ---
History Report prepared by Bakari: Johnny Orozco Under the Supervision of: Dr. Brennan Tobar M.D. First contact with patient: 10:30 Chief Complaint: ABNORMAL LABS Stated Complaint: ABNORMAL LABS History of Present Illness The patient is a 87 year old female who presents to the Emergency Room for evaluation of abnormal laboratory studies. She is a resident at [facility]. The patient had blood work with her PCP earlier today and had blood work drawn. Her blood work showed a low hemoglobin at 6.7. She was called with her results just prior to arrival and was referred to the ED. The patient notes that she was in the shower four days ago when she reached to the side and felt a sudden pain in her right shoulder. She has had extensive bruising of her right shoulder and chest ever since. The patient denies black or bloody stool, hematuria, chest pain or SOB. She is on Coumadin for blood clots. She was taken off of the Coumadin three days ago after her bruising began. The patient denies any recent falls, trauma, or head injuries. Per prison, the patient's hemoglobin was 10.8 six days ago (Jul 17), and was 8.8 two days ago (Jul 21). Source of History: patient Onset: Today Symptom Intensity: Hemoglobin of 6.7 Quality: other (abnormal laboratory studies) Timing: constant Associated Symptoms: No melena, No hematochezia, No urinary symptoms ( hematuria) Review of Systems See HPI for pertinent positives and negatives. A total of ten systems were reviewed and were otherwise negative. Past Medical & Surgical Medical Problems: (1) Acute blood loss anemia (2) Chronic anemia (3) Chronic anticoagulation (4) CKD (chronic kidney disease), stage III (5) Diastolic heart failure (6) H/O deep venous thrombosis (7) Hematoma (8) History of DVT (deep vein thrombosis) (9) Hyperlipidemia (10) Hypertension Family History No pertinent family history Social History Smoking Status: Former Smoker Drug Use: none Marital Status: Housing Status: prison Occupation Status: retired Current/Historical Medications Scheduled Acetaminophen (Tylenol Arthritis Ext Rel), 1,300 MG PO QAM Allopurinol (Zyloprim), 100 MG PO 0600 Amlodipine Besylate (Norvasc), 5 MG PO HS Aspirin (Aspirin Chewable), 81 MG PO 0600 Coenzyme Q10 (Ubidecarenone) (Coq-10), 100 MG PO 0600 Colchicine (Colchicine), 0.6 MG PO Q48HRS Cyanocobalamin (Vitamin B-12), 500 MCG PO QAM Estrogens, Conjugated (Premarin), 1 APPL PV 3XWK Ferrous Sulfate (Ferrous Sulfate), 325 MG PO QPM Fluticasone Propionate (Nasal) (Flonase Allergy Relief), 1 SPRAY EVA 0600 Multiple Vitamins W/ Minerals (Ocuvite Lutein), 1 CAP PO QAM Omeprazole (Prilosec), 40 MG PO BID Probiotic Product (Probiotic), 1 CAP PO 0600 Sodium Chloride Hypertonic (Jim 128), 1 DROP OPB TID Warfarin Sod (Coumadin), 2.5 MG PO 6XWK Warfarin Sod (Coumadin), 1.25 MG PO WK Scheduled PRN Acetaminophen Tab (Tylenol), 650 MG PO Q6H PRN for Pain or Fever Amoxicillin (Amoxicillin), 2,000 MG PO UD PRN for Antibiotic Prophylaxis Diclofenac Sodium (Topical) (Voltaren 1% Top Gel), 2 GM TOP Q6H PRN for Shoulder Pain Guaifenesin Ext Rel (Mucinex Ext Rel), 600 MG PO Q12 PRN for Cough/Congestion Hydrocodone/Acetaminophen 5MG/325MG ([place] 5MG/325MG), 1 TABLET PO Q4H PRN for Pain Hydrocodone/Acetaminophen 5MG/325MG ([place] 5MG/325MG), 2 TABLETS PO Q4 PRN for Pain Lidocaine-Prilocaine (Lidocaine/Prilocaine), 1 APPLN TOP Q6H PRN for Shoulder Pain Loratadine (Claritin), 10 MG PO Q24H PRN for Seasonal Allergies Oxycodone Hcl (Oxycodone Hcl), 2.5 MG PO Q4 PRN for Pain Oxycodone Hcl (Oxycodone Hcl), 5 MG PO Q4H PRN for Pain Prednisone (Prednisone), 20 MG PO UD PRN for Gout Flare Up Allergies Coded Allergies: No Known Allergies (Unverified , 07/23/17) Physical Exam Vital Signs Date Time Temp Pulse Resp B/P (MAP) Pulse Ox O2 Delivery O2 Flow Rate FiO2 07/23/17 11:02 82 17 119/68 97 07/23/17 10:23 36.7 85 18 118/67 96 Room Air 07/23/17 10:09 87 Physical Exam GENERAL: Awake, alert, well-appearing, in no distress HENT: Normocephalic, Atraumatic. no hemotympanum bilaterally, harden sign negative bilaterally. Oropharynx unremarkable. EYES: Normal conjunctiva. Sclera non-icteric. PERRL bilaterally. EOMI bilaterally. NECK: Supple. No nuchal rigidity. FROM. No JVD. No C-spine tenderness. RESPIRATORY: Clear to auscultation. No wheezes, rhonchi or rales bilaterally. CARDIAC: Regular rate, normal rhythm. Extremities warm and well perfused. Equal palpable radial pulses to the bilateral upper extremities. Equal palpable DP pulses to the bilateral lower extremities. ABDOMEN: Soft, non-distended. No tenderness to palpation. No rebound or guarding. No masses. Rovsig Negative. RECTAL: Hemoccult negative stool. MUSCULOSKELETAL: Chest examination reveals no tenderness. The back is symmetrical on inspection without obvious abnormality. There is no CVA tenderness to palpation. No joint edema. LOWER EXTREMITIES: Calves are equal size bilaterally and non-tender. No edema. No discoloration. NEURO: Normal sensorium. No sensory or motor deficits noted. No pronator drift. No facial droop. No dysarthria. SKIN: No rash or jaundice noted. Diffuse ecchymosis over entire anterior chest including bilateral breasts. Chest wall tissue is soft. No tension. Medical Decision & Procedures ER Provider Diagnostic Interpretation: Radiology results as stated below per my review and radiologist interpretation: R SHOULDER MIN 2 VIEWS ROUTINE FINDINGS: Severe right glenohumeral and right AC joint degenerative changes. Humeral head is high right within the glenoid fossa with markedly decreased acromiohumeral interval. 7 mm corticated bone fragment superior lateral to the acromium may reflect remote fracture fragment. No acute fracture or dislocation. Soft tissues are unremarkable. Imaged lung barajas appear clear. IMPRESSION: 1. No acute fracture or dislocation. 2. Severe degenerative changes of the glenohumeral and AC joints. 3. Markedly decreased acromiohumeral interval is compatible with underlying rotator cuff disease. The above report was generated using voice recognition software. It may contain grammatical, syntax or spelling errors. Electronically signed by: Jaden Anglin M.D. 07/23/2017 12:16 PM Laboratory Results 07/23/17 10:19 Red Blood Count 2.30, Mean Corpuscular Volume 97.8, Mean Corpuscular Hemoglobin 31.7, Mean Corpuscular Hemoglobin Concent 32.4, Mean Platelet Volume 10.7, Neutrophils (%) (Auto) 68.9, Lymphocytes (%) (Auto) 15.0, Monocytes (%) (Auto) 10.9, Eosinophils (%) (Auto) 4.3, Basophils (%) (Auto) 0.3, Neutrophils # (Auto ) 5.43, Lymphocytes # (Auto) 1.18, Monocytes # (Auto) 0.86, Eosinophils # (Auto ) 0.34, Basophils # (Auto) 0.02 07/23/17 10:19 Test 07/23/17 10:19 White Blood Count 7.88 K/uL (4.8-10.8) Red Blood Count 2.30 M/uL (4.2-5.4) Hemoglobin 7.3 g/dL (12.0-16.0) Hematocrit 22.5 % (37-47) Mean Corpuscular Volume 97.8 fL (80-100) Mean Corpuscular Hemoglobin 31.7 pg (25-34) Mean Corpuscular Hemoglobin Concent 32.4 g/dl (32-36) Platelet Count 239 K/uL (130-400) Mean Platelet Volume 10.7 fL (7.4-10.4) Neutrophils (%) (Auto) 68.9 % Lymphocytes (%) (Auto) 15.0 % Monocytes (%) (Auto) 10.9 % Eosinophils (%) (Auto) 4.3 % Basophils (%) (Auto) 0.3 % Neutrophils # (Auto) 5.43 K/uL (1.4-6.5) Lymphocytes # (Auto) 1.18 K/uL (1.2-3.4) Monocytes # (Auto) 0.86 K/uL (0.11-0.59) Eosinophils # (Auto) 0.34 K/uL (0-0.5) Basophils # (Auto) 0.02 K/uL (0-0.2) RDW Standard Deviation 58.9 fL (36.4-46.3) RDW Coefficient of Variation 16.7 % (11.5-14.5) Immature Granulocyte % (Auto) 0.6 % Immature Granulocyte # (Auto) 0.05 K/uL (0.00-0.02) Polychromasia 1+ Hypochromasia PRESENT Prothrombin Time 12.2 SECONDS (9.0-12.0) Prothromb Time International Ratio 1.2 (0.9-1.1) Activated Partial Thromboplast Time 38.0 SECONDS (21.0-31.0) Partial Thromboplastin Ratio 1.5 Anion Gap 9.0 mmol/L (3-11) Est Creatinine Clear Calc Drug Dose 33.2 ml/min Estimated GFR () 48.0 Estimated GFR (Non- 41.4 BUN/Creatinine Ratio 25.8 (10-20) Calcium Level 8.3 mg/dl (8.5-10.1) Laboratory results reviewed by al Medications Administered ED Course 1031: The patient was evaluated in room B7. A complete history and physical exam was performed. 1150: The patient's vital signs are stable. Her INR is subtherapeutic, but within target range. Her hemoglobin is 7.3, which is up from previous of 6.7, but overall down from baseline of 10.7 (Feb 2). Patient will be transfused one unit of packed RBC and admitted to the hospitalist service. Medical Decision The patient's vital signs are stable. Her INR is subtherapeutic, but within target range. Her hemoglobin is 7.3, which is up from previous of 6.7, but overall down from baseline of 10.7 (Feb 2). Patient will be transfused one unit of packed RBC and admitted to the hospitalist service. Medication Reconcilliation Current Medication List: was personally reviewed by al Blood Pressure Screening Patient's blood pressure: Normal blood pressure Blood pressure disposition: Did not require urgent referral Consults Time Called: 1140 Consulting Physician: Dr. Rashad Elias Hospitalist Returned Call: [phone] Discussed the patient's case. The patient will be evaluated for further treatment and disposition. Impression Primary Impression: Anemia Critical Care I have personally spent greater than 52 minutes of critical care time in the direct management of this patient. This includes bedside care, interpretation of diagnostic studies, and testing, discussion with consultants, patient, and family members, and other required patient management activities. This 52 minutes is in excess of all separately billable procedures. Scribe Attestation The scribe's documentation has been prepared under my direction and personally reviewed by me in its entirety. I confirm that the note above accurately reflects all work, treatment, procedures, and medical decision making performed by me. The chart was completed utilizing [employer] Qualified Speech voice recognition software. Grammatical errors, random word insertions, pronoun errors, and incomplete sentences are an occasional consequence of this system due to software limitations, ambient noise, and hardware issues. Any formal questions or concerns about the content, text, or information contained within the body of this dictation should be directly addressed to the physician for clarification. Departure Information Dispostion Being Evaluated By Hospitalist Referrals Petty Mena, C.R.N.P. (PCP) Patient Instructions My [facility]
--- NOTE | 2017-07-23 14:07 | DIAGNOSTIC IMAGING REPORT ---
(CHEST) THORAX WITHOUT CT DOSE: 1475.96 mGycm HISTORY: Trauma CHEST WALL HEMATOMA TECHNIQUE: Multiaxial CT images of the chest were performed without contrast. A dose lowering technique was utilized adhering to the principles of ALARA. COMPARISON: None. FINDINGS: There is evidence for a right anterior chest wall hematoma measuring 9 x 3 cm. There is a significant amount of surrounding soft tissue edematous change extending to the superior margin of the right flank. There is a nondisplaced cortical fracture of the right sixth rib in the midaxillary line. Dilation of the lung parenchyma demonstrates lungs to be clear. There is no evidence for pneumothorax. There is minimal dependent basilar atelectasis. There is a large fixed hiatal hernia. IMPRESSION: 1. Right anterior chest wall hematoma measuring 9 x 3 cm. 2. Significant surrounding soft tissue edematous change and/or contusion of the right lateral chest wall extending to the superior right flank. 3. Nondisplaced cortical fracture right sixth rib. 4. Large fixed hiatal hernia. 5. The lungs are clear. The above report was generated using voice recognition software. It may contain grammatical, syntax or spelling errors. Electronically signed by: Douglas Givens M.D. 07/23/2017 2:05 PM Dictated Date/Time: 07/23/2017 1:51 PM
[2017-07-23] MEDS ORDERED: POLYETHYLENE (MIRALAX) 17 GM PACK PO PRN (14:15)
[2017-07-23] MEDS ORDERED: PHYTONADIONE 5 MG TAB PO ONE (15:40)
[2017-07-23] MEDS: LIDODERM (LIDOCAINE) PATCH 5% TD SCH (16:00)
--- NOTE | 2017-07-23 17:04 | Medical Consult ---
Consultation Date of Consultation: Jul 23, 2017. Attending Physician: Kg Barrow M.D. Reason for Consultation: Chest Wall Hematoma History of Present Illness Ms. Davis is an 87-year-old female with past medical history significant for hypertension, h/o DVT on chronic anticoagulation who presented to [facility] ED after abnormal lab value, Hgb 6.7, was obtained from PCP. Patient is a resident at [facility] and reports that she was in the shower 4 days ago and while getting out of the shower she reached across her body with her right arm and felt a rip/tear. She states that she did not fall. She presented to ED for evaluation. She was instructed to stop Coumadin. She has developed bruising down her right chest, her right breast and under her right axilla. Chest Xray was unremarkable in ED, pt had diffuse bruise on anterior chest wall, Hb was 8.6 , INR 3.2 pt was discharged form ER. CT scan today IMPRESSION: 1. Right anterior chest wall hematoma measuring 9 x 3 cm. 2. Significant surrounding soft tissue edematous change and/or contusion of the right lateral chest wall extending to the superior right flank. 3. Nondisplaced cortical fracture right sixth rib. 4. Large fixed hiatal hernia. 5. The lungs are clear. General Surgery has been consulted to evaluate patient's right chest wall hematoma. Patient has been followed by Dr. Todd for shoulder concerns in the past and reports that she has advanced arthritis. Past Medical/Surgical History Medical Problems: (1) Anemia Status: Acute (2) Arthritis Status: Acute (3) Chest wall contusion Status: Acute Family History No pertinent family history Social History Smoking Status: Former Smoker Drug Use: none Marital Status: Housing Status: custodial Occupation Status: retired Allergies Coded Allergies: No Known Allergies (Unverified , 07/23/17) Current Inpatient Medications Current Inpatient Medications Medications (Trade) Dose Ordered Sig/Nydia Route Start Time Stop Time Status Last Admin Dose Admin Acetaminophen (Tylenol Tab) 650 mg Q4H PRN PO 07/23/17 12:45 08/22/17 12:44 Al Hydrox/Mg Hydrox/Simethicone (Maalox Max Susp) 15 ml Q4H PRN PO 07/23/17 12:45 08/22/17 12:44 Magnesium Hydroxide (Milk Of Magnesia Susp) 30 ml Q6H PRN PO 07/23/17 12:45 08/22/17 12:44 Polyethylene (Miralax Powder Packet) 17 gm DAILY PRN PO 07/23/17 14:15 08/22/17 14:14 Ondansetron HCl (Zofran Inj) 4 mg Q6H PRN IV 07/23/17 12:45 08/22/17 12:44 Allopurinol (Zyloprim Tab) 100 mg 0600 PO 07/24/17 06:00 08/23/17 05:59 Amlodipine Besylate (Norvasc Tab) 5 mg HS PO 07/23/17 21:00 08/22/17 20:59 Colchicine (Colchicine Tab) 0.6 mg Q48H PO 07/25/17 06:00 08/24/17 05:59 Cyanocobalamin (Vitamin B-12 Tab) 500 mcg QAM PO 07/24/17 08:00 08/23/17 08:59 Diclofenac Sodium (Voltaren 1% Top Gel) 1 appln Q6H PRN EXT 07/23/17 13:00 08/22/17 12:59 Estrogens Conjugated (Premarin Vag Crm) 1 appln MoWeFr@0900 PV 07/24/17 09:00 08/23/17 08:59 Fluticasone Propionate (Flonase Nasal Elizabeth) 1 sprays BID EVA 07/23/17 20:00 08/22/17 20:59 Guaifenesin (Mucinex Contr Rel Tab) 600 mg Q12H PRN PO 07/23/17 13:00 08/22/17 12:59 Acetaminophen/ Hydrocodone Bitart ([place] 5/325 Tab) 1 tab Q4H PRN PO 07/23/17 13:00 08/06/17 12:59 Acetaminophen/ Hydrocodone Bitart ([place] 5/325 Tab) 2 tab Q4H PRN PO 07/23/17 13:00 08/06/17 12:59 Lidocaine/ Prilocaine ([place] 2.5% Crm) 1 ea Q6H PRN EXT 07/23/17 13:00 08/22/17 12:59 Loratadine (Claritin Tab) 10 mg Q24H PRN PO 07/23/17 13:00 08/22/17 12:59 Sodium Chloride (Jim 128 Oph Soln) 1 drops TID OPB 07/23/17 20:00 08/22/17 19:59 Non-Formulary Medication (Acetaminophen (Tylenol Arthritis Ext Rel)) 1,300 mg QAM PO 07/24/17 08:00 08/23/17 08:59 UNV Ferrous Sulfate (Feosol Tab) 325 mg QPM PO 07/23/17 21:00 08/22/17 20:59 Multivitamins/ Minerals (Multivitamin W/ Minerals Tab) 1 tab QAM PO 07/24/17 08:00 08/23/17 07:59 Pantoprazole Sodium (Protonix Tab) 40 mg BID PO 07/24/17 08:00 08/23/17 07:59 Oxycodone HCl (Roxicodone Immediate Rel Tab) 2.5 mg Q4 PRN PO 07/23/17 13:00 08/22/17 12:59 Oxycodone HCl (Roxicodone Immediate Rel Tab) 5 mg Q4H PRN PO 07/23/17 13:00 08/22/17 12:59 Lactobacillus Acidophilus (Floranex Tab) 4 tab 0600 PO 07/24/17 06:00 08/23/17 05:59 Lidocaine (Lidoderm Patch 5%) 1 patch QAM TD 07/23/17 16:00 08/22/17 15:59 Miscellaneous (Remove Lidoderm Patch) 1 ea DAILY@21 N/A 07/23/17 21:00 08/22/17 20:59 Calcium/Vitamin D (Caltrate Plus Tab) 1 tab BID PO 07/23/17 20:00 08/22/17 19:59 UNV Review of Systems Constitutional: No fever, No chills Musculoskeletal: + joint pain Hematologic / Lymphatic: + abnormal bleeding/bruising Physical Exam Date Time Temp Pulse Resp B/P (MAP) Pulse Ox O2 Delivery O2 Flow Rate FiO2 07/23/17 16:00 Room Air 07/23/17 14:19 36.3 77 18 116/68 (84) 100 Room Air 07/23/17 14:15 36.4 71 18 122/73 07/23/17 13:21 96 Room Air 07/23/17 12:57 81 20 116/54 96 07/23/17 11:02 82 17 119/68 97 07/23/17 10:23 36.7 85 18 118/67 96 Room Air 07/23/17 10:09 87 General Appearance: WD/WN, no apparent distress Respiratory/Chest: no respiratory distress, no accessory muscle use, + pertinent finding (significant bruising on right chest wall, down right breast and continues under right axilla around to patient's back. ) Laboratory Results Last 24 Hours Test 07/23/17 10:19 White Blood Count 7.88 K/uL Red Blood Count 2.30 M/uL Hemoglobin 7.3 g/dL Hematocrit 22.5 % Mean Corpuscular Volume 97.8 fL Mean Corpuscular Hemoglobin 31.7 pg Mean Corpuscular Hemoglobin Concent 32.4 g/dl Platelet Count 239 K/uL Mean Platelet Volume 10.7 fL Neutrophils (%) (Auto) 68.9 % Lymphocytes (%) (Auto) 15.0 % Monocytes (%) (Auto) 10.9 % Eosinophils (%) (Auto) 4.3 % Basophils (%) (Auto) 0.3 % Neutrophils # (Auto) 5.43 K/uL Lymphocytes # (Auto) 1.18 K/uL Monocytes # (Auto) 0.86 K/uL Eosinophils # (Auto) 0.34 K/uL Basophils # (Auto) 0.02 K/uL RDW Standard Deviation 58.9 fL RDW Coefficient of Variation 16.7 % Immature Granulocyte % (Auto) 0.6 % Immature Granulocyte # (Auto) 0.05 K/uL Polychromasia 1+ Hypochromasia PRESENT Prothrombin Time 12.2 SECONDS Prothromb Time International Ratio 1.2 Activated Partial Thromboplast Time 38.0 SECONDS Partial Thromboplastin Ratio 1.5 Sodium Level 140 mmol/L Potassium Level 3.4 mmol/L Chloride Level 110 mmol/L Carbon Dioxide Level 22 mmol/L Anion Gap 9.0 mmol/L Blood Urea Nitrogen 31 mg/dl Creatinine 1.18 mg/dl Est Creatinine Clear Calc Drug Dose 33.2 ml/min Estimated GFR () 48.0 Estimated GFR (Non- 41.4 BUN/Creatinine Ratio 25.8 Random Glucose 153 mg/dl Calcium Level 8.3 mg/dl Assessment & Plan 87-year-old female history of arthritis, DVT on chronic anticoagulation, decreased Hgb, right chest wall hematoma. Possible pectoralis tear Patient seen and examined with Dr. Dahl. Recent imaging reviewed. Hbg 7.3- patient receiving unit of blood during consult. Pain controlled at this time. Chest wall hematoma- surgical intervention not indicated at this time. Continue to monitor Hgb and Hct Discussed with Paco Sr PA-C, Ortho- recommends PT evaluation. Surgical repair unlikely. Patient seen and examined, agree with above. No mechanical fall, but caught her self with right arm and felt tearing pain a few days ago. Was on coumadin which was stopped after developing ecchymosis. CBC today showed new anemia, but asymptomatic. CT revealed chest wall hematoma on right, deep to pectoralis. AFVSS ecchymosis to chest wall. Patient limited by arthritis, but no significant weakness detected on adduction or internal rotation of right arm. No surgical intervention for hematoma. May represent partial pectoralis tear, spoke with ortho but likely non op and recommend PT. Surgery will follow peripherally, call with questions or concerns thank you for this interesting consult. Donna Dahl, DO
[2017-07-23 19:20] LABS: HEMATOCRIT 27.8 % (37-47); HEMOGLOBIN 9.1 g/dL (12.0-16.0)
[2017-07-23] MEDS: CALCIUM 600MG + VIT D 400 IU TAB PO SCH (19:50)
[2017-07-23] MEDS: FLUTICASONE PROPIONATE NA SPR 16 GM BTL NAE SCH (19:56)
[2017-07-23] MEDS: SODIUM CHLORIDE 5% OP SOLN 15 ML BTL OPB SCH (19:57)
[2017-07-23] MEDS ORDERED: FERROUS SULFATE 325 MG TAB PO SCH (21:00)
[2017-07-23] MEDS ORDERED: AMLODIPINE BESYLATE 5 MG TAB PO SCH (21:00)
[2017-07-24 05:56] LABS: HEMATOCRIT 26.3 % (37-47); HEMOGLOBIN 8.8 g/dL (12.0-16.0); MEAN CELL VOLUME 93.6 fL (80-100); MEAN CORPUSCULAR HEMOGLOBIN 31.3 pg (25-34); MEAN CORPUSCULAR HGB CONC 33.5 g/dl (32-36); PLATELET COUNT 254 K/uL (130-400); RED CELL DISTRIBUTION WIDTH CV 17.1 % (11.5-14.5)
[2017-07-24] MEDS ORDERED: LACTOBACILLUS ACIDOPHILUS (FLORANEX) TAB PO SCH (06:00)
[2017-07-24] MEDS ORDERED: ALLOPURINOL 100 MG TAB PO SCH (06:00)
[2017-07-24] MEDS ORDERED: NON-FORMULARY MEDICATION (Coenzyme Q10 (Ubidecarenone) (Coq-10) 100 MG) PO SCH (06:00)
[2017-07-24 06:04] LABS: INR 1.1 (0.9-1.1)
[2017-07-24 06:30] LABS: CALCIUM 8.3 mg/dl (8.5-10.1); CREATININE 1.1 mg/dl (0.60-1.20); POTASSIUM 4.1 mmol/L (3.5-5.1)
--- NOTE | 2017-07-24 07:21 | Clinical Documentation Query ---
ANGEL Ga : CLINICAL DOCUMENTATION QUERY Patient is an 87 year old female presenting for evaluation of anemia in the setting of Coumadin therapy and an anterior chest wall hematoma s/p fall. As appropriate, consider documentation as suggested below in order to capture the severity of illness and associated risk of mortality. Thank you. In your clinical opinion is this patient being managed for: ( ) Drug-induced (Coumadin) hemorrhagic disorder ( ) Not Agree ( ) Other explanation of clinical findings (Please Explain) (x) Unable to determine (Please Define) ( ) Need to Discuss Patient will follow up with hematology clinic for further evaluation The medical record reflects the following clinical findings, treatment, and risk factors. Clinical Indicators: Acute blood loss anemia associated with Coumadin therapy s/p fall Treatment: Discontinuation of coumadin, transfusion of PRBC's, serial hematology, CT chest, symptomatic management, surgery evaluation Risk Factors: Coumadin use Please clarify and document your clinical opinion in the progress notes and discharge summary. Terms such as "probable", "suspected", "likely", "questionable", "possible", or "still to be ruled out" are acceptable. IF IN AGREEMENT, YOU MUST DOCUMENT ABOVE DIAGNOSTIC STATEMENT IN DAILY PROGRESS NOTES AND DISCHARGE SUMMARY. This document is not part of the patient's record. Thank You, Girish Ramon RN [phone]
[2017-07-24] MEDS ORDERED: ACETAMINOPHEN 500 MG TAB PO SCH (08:00)
[2017-07-24] MEDS ORDERED: CEROVITE ADV FORMULA TAB PO SCH (08:00)
[2017-07-24] MEDS: LIDODERM (LIDOCAINE) PATCH 5% TD SCH (08:00)
[2017-07-24] MEDS ORDERED: PANTOprazole SOD 40 MG TAB PO SCH (08:00)
[2017-07-24] MEDS: FLUTICASONE PROPIONATE NA SPR 16 GM BTL NAE SCH (08:00)
[2017-07-24] MEDS ORDERED: CYANOCOBALAMIN 500 MCG TAB (VIT B-12) PO SCH (08:00)
[2017-07-24] MEDS: CALCIUM 600MG + VIT D 400 IU TAB PO SCH (08:21)
[2017-07-24] MEDS: SODIUM CHLORIDE 5% OP SOLN 15 ML BTL OPB SCH ×2 (08:24→13:52)
[2017-07-24 08:32] VITALS: BP 126/82; PULSE 76; TEMP 36.7; O2SAT 94
[2017-07-24 08:52] VITALS: O2SAT 94
[2017-07-24] MEDS ORDERED: PREMARIN VAG CRM 14 APPLN/30 GM TUBE PV SCH ×2 (09:00→21:00)
[2017-07-24] MEDS ORDERED: NURSING DECISION MEDICATION ORDER SCH (10:00)
[2017-07-24 12:18] LABS: HEMATOCRIT 27.3 % (37-47); HEMOGLOBIN 8.8 g/dL (12.0-16.0)
--- NOTE | 2017-07-24 13:00 | Gastrointestinal Consultation ---
Gastrointestinal Consultation Date of Consultation: Jul 24, 2017 Attending Physician: Ha Diallo Consulting Physician: Matty Cabrera Reason for Consultation: R/O GI blood loss causing anemia History of Present Illness Pt is a 87 y/o female, resident of [facility] current admitted for anemia. GI consulted to r/o GI source of blood loss anemia. She has PMHx of HTN , diastolic HF , HLD, h/o DVT on Coumadin, chronic anemia , CKD stage 3. She was taking a shower and slipped, was holding on to shower handle to break the fall and felt an excruciating pain on anterior chest and R shoulder. CXR in ED unremarkable, chest CT showed 9x3cm hematoma on R chest and diffuse contusion, non displaced R 6th rib fracture. She had a diffuse large bruise on anterior chest wall. On Coumadin for hx of DVT, INR on presentation was 1.2. Upon eval, her H/H was 7.3/22 (Hgb was 8 , 6 days ago). Received 1U PRBC,Hgb up to 9 now. She was seen by GI in April 2017 for reported melena. Had EGD done 04/18/17 which showed LA grade C reflux esophagitis, large hiatal hernia w mild Adriano erosions, duodenitis. She was seen again in June 2017 by our team for coffee ground emesis. Offered repeat EGD at that time but she refused. She had her last colonoscopy many years ago, said never had anything abnormal. No hx of colon ca. Pt denies any abd pain, n/v, reflux, coffee ground emesis or dark tarry stools. Tolerating food well. Past Medical/Surgical History Medical Problems: (1) Anemia Status: Acute (2) Arthritis Status: Acute (3) Chest wall contusion Status: Acute Past Medical History: Past Medical/Surgical History Medical Problems: (1) Chronic anemia Status: Chronic (2) Chronic anticoagulation Status: Chronic (3) CKD (chronic kidney disease), stage III Status: Chronic (4) Diastolic heart failure Status: Chronic (5) H/O deep venous thrombosis Status: Chronic (6) Hyperlipidemia Status: Chronic (7) Hypertension Status: Chronic Patient is a 87 year old female Past Surgical History: Finger amputation Cataract surgery Family History No pertinent family history Social History Smoking Status: Former Smoker Drug Use: none Marital Status: Housing Status: usp Occupation Status: retired Allergies Coded Allergies: No Known Allergies (Unverified , 07/23/17) Current Medications Home Meds and Scripts Medications Dose Route/Sig Max Daily Dose Days Date Category Dose Instructions [place] 5MG/325MG (Acetaminophen/Hydrocodone Bitart) Tab 2 Tablets PO Q4 PRN 06/24/17 Reported take 2 tablets every 4 hours as needed for pain ( pain scale 8-10 on a pain scale of 1-10) [place] 5MG/325MG (Acetaminophen/Hydrocodone Bitart) Tab 1 Tablet PO Q4H PRN 06/24/17 Reported take 1 tablet every 4 hours as needed for pain ( pain scale of 1-10 on a 1-10 scale) Oxycodone Hcl 5 Mg Cap 5 Mg PO Q4H PRN 06/24/17 Reported take 5mg every 4 hours as needed for pain if prn norco ineffective, take 5mg po prn pain 7-10 on a scale of 0-10 Oxycodone Hcl 5 Mg Cap 2.5 Mg PO Q4 PRN 06/24/17 Reported take 2.5mg every 4 hours as needed for pain if prn norco is ineffective, take 1/2 tablet po prn pain 2-6 on a scale of 0-10 Voltaren 1% Top Gel (Diclofenac Sodium (Topical)) 1 % Gel 2 Gm TOP Q6H PRN 06/16/17 Reported APPLY TO SHOULDERS DIRECTED Prilosec (Omeprazole) 20 Mg Capcr 40 Mg PO BID 06/16/17 Reported Ocuvite Lutein (Multiple Vitamins W/ Minerals) 1 Cap Cap 1 Cap PO QAM 06/16/17 Reported Mucinex Ext Rel (Guaifenesin) 600 Mg Tab 600 Mg PO Q12 PRN 06/16/17 Reported Norvasc (Amlodipine Besylate) 5 Mg Tab 5 Mg PO HS 06/16/17 Reported Ferrous Sulfate 325 Mg Tab 325 Mg PO QPM 06/16/17 Reported Coumadin (Warfarin Sod) 2.5 Mg Tab 1.25 Mg PO WK 04/17/17 Reported TAKE HALF A TABLET (1.25 MG) EVERY THURSDAY OR OTHERWISE DIRECTED TO TAKE BY ANTICOAGULATION CLINIC/ Coumadin (Warfarin Sod) 2.5 Mg Tab 2.5 Mg PO 6XWK 04/17/17 Reported TAKE 2.5 MG EVERY THURSDAY,THURSDAY,THURSDAY,THURSDAY,THURSDAY AND THURSDAY OR OTHERWISE DIRECTED TO TAKE BY ANTICOAGULATION CLINIC/MD Colchicine 0.6 Mg Tab 0.6 Mg PO Q48HRS 04/17/17 Reported Coq-10 (Coenzyme Q10 (Ubidecarenone)) 100 Mg Cap 100 Mg PO 0600 04/17/17 Reported Aspirin Chewable (Aspirin) 81 Mg Chew 81 Mg PO 0600 04/17/17 Reported Amoxicillin 500 Mg Cap 2,000 Mg PO UD PRN 04/17/17 Reported TAKE THIS MEDICATION ONE HOUR PRIOR TO DENTAL PROCEDURES Zyloprim (Allopurinol) 100 Mg Tab 100 Mg PO 0600 04/17/17 Reported Vitamin B-12 (Cyanocobalamin) 500 Mcg Tab 500 Mcg PO QAM 04/17/17 Reported Jim 128 (Sodium Chloride Hypertonic) 5 % Aura 1 Drop OPB TID 04/17/17 Reported Probiotic (Probiotic Product) 1 Cap Cap 1 Cap PO 0600 04/17/17 Reported Premarin (Estrogens, Conjugated) 14 Appln/30 Gm Cr 1 Appl PV 3XWK 04/17/17 Reported PREMARIN 0.625 MG/GM - ONE APPLICATION AT BEDTIME EVERY THURSDAY,THURSDAY AND THURSDAY Prednisone 20 Mg Tab 20 Mg PO UD PRN 04/17/17 Reported TAPER DOWN DOSING FOLLOWS: TAKE 3 TABLETS (60 MG) DAILY FOR 1 DAY THEN, TAKE 2 TABLETS (40 MG) DAILY FOR 2 DAYS THEN, TAKE 1 TABLET (20 MG) DAILY FOR 2 DAYS THEN, TAKE 0.5 TABLET (10 MG) DAILY FOR 2 DAYS THEN STOP. Claritin (Loratadine) 10 Mg Tab 10 Mg PO Q24H PRN 04/17/17 Reported Lidocaine/Prilocaine (Lidocaine-Prilocaine) 1 Cre Cre 1 Appln TOP Q6H PRN 04/17/17 Reported APLLY DIRECTED TO SHOULDERS Flonase Allergy Relief (Fluticasone Propionate (Nasal)) 50 Mcg/Act Spr 1 [place] EVA 0600 04/17/17 Reported Tylenol (Acetaminophen) 325 Mg Tab 650 Mg PO Q6H PRN 04/17/17 Reported Tylenol Arthritis Ext Rel (Acetaminophen) 650 Mg Cplt 1,300 Mg PO QAM 04/17/17 Reported Review of Systems Constitutional: No fever, No chills Respiratory: No cough, No shortness of breath Cardiac: No chest pain Abdomen: No pain, No nausea, No vomiting, No GI bleeding Physical Exam Date Time Temp Pulse Resp B/P (MAP) Pulse Ox O2 Delivery O2 Flow Rate FiO2 07/24/17 08:52 94 Room Air 07/24/17 08:32 36.7 76 14 126/82 (97) 94 Room Air 07/24/17 08:20 Room Air 07/24/17 00:08 Room Air 07/23/17 23:04 36.5 83 18 130/75 (93) 95 Room Air 07/23/17 20:05 Room Air 07/23/17 16:45 36.5 79 18 120/69 07/23/17 16:00 Room Air 07/23/17 15:45 36.4 79 18 111/72 07/23/17 15:15 36.4 73 18 111/77 07/23/17 14:45 36.5 78 18 135/68 07/23/17 14:30 36.4 71 18 120/77 98 07/23/17 14:19 36.3 77 18 116/68 (84) 100 Room Air 07/23/17 14:15 36.4 71 18 122/73 07/23/17 13:21 96 Room Air 07/23/17 12:57 81 20 116/54 96 General Appearance: WD/WN, no apparent distress Eyes: normal inspection, PERRL, EOMI Neck: supple, no JVD, trachea midline Respiratory/Chest: normal breath sounds, no respiratory distress, no accessory muscle use Cardiovascular: regular rate, rhythm, no gallop, no murmur Abdomen: normal bowel sounds, non tender, soft Extremities: normal inspection, no pedal edema, no calf tenderness Neurologic/Psych: alert, normal mood/affect, oriented x 3 Skin: normal color, no jaundice, no rash Laboratory Results Last 24 Hours Test 07/23/17 19:07 07/24/17 05:48 07/24/17 11:57 Hemoglobin 9.1 g/dL 8.8 g/dL 8.8 g/dL Hematocrit 27.8 % 26.3 % 27.3 % White Blood Count 6.10 K/uL Red Blood Count 2.81 M/uL Mean Corpuscular Volume 93.6 fL Mean Corpuscular Hemoglobin 31.3 pg Mean Corpuscular Hemoglobin Concent 33.5 g/dl RDW Standard Deviation 58.0 fL RDW Coefficient of Variation 17.1 % Platelet Count 254 K/uL Mean Platelet Volume 10.0 fL Prothrombin Time 11.2 SECONDS Prothromb Time International Ratio 1.1 Sodium Level 141 mmol/L Potassium Level 4.1 mmol/L Chloride Level 111 mmol/L Carbon Dioxide Level 25 mmol/L Anion Gap 5.0 mmol/L Blood Urea Nitrogen 24 mg/dl Creatinine 1.10 mg/dl Est Creatinine Clear Calc Drug Dose 35.6 ml/min Estimated GFR () 52.3 Estimated GFR (Non- 45.1 BUN/Creatinine Ratio 22.2 Random Glucose 92 mg/dl Calcium Level 8.3 mg/dl Impression Patient is a 87 year old female admitted after slipping in bathtub w/o fall; noted to be anemic on presentation. Hgb 7, improved to 8.8 after 1U PRBC. She had been on Coumadin for hx of DVT, and INR on presentation was 1.2. She developed a R chest hematoma 9x3cm after her slip, and now has a large diffuse bruise on chest. She has hx of melena in April and coffee ground emesis in June. EGD in April showed large hiatal hernia w mild Adriano erosions, reflux esophagitis and duodenitis. She is currently on Protonix 40mg BID. No signs of GI bleed (no hematemesis, coffee ground emesis or melena). No signs of hernia strangulation but hernia is intrathoracic. I doubt with her age and comorbidities, she's going to be a surgical candidate. She refused to have repeat EGD or colonoscopy. Colonoscopy done in outside hospital (I don't have records), but normal per her report. Plan - Monitor H/H and transfuse prn - Should discuss with hospitalist about possibly stopping Coumadin if risk greater than benefit. - Defer EGD and colonoscopy per pt's request. - Continue Protonix 40mg BID. I performed a history and physical examination of the patient. I have discussed the patient's case, impression and plan with MALAIKA Larios. Her note reflects my findings and plan. Anemia most likely related to several issues namely her large hematoma and chronic low grade GI bleeding from her hiatal hernia exacerbated by anticoagulation. Patient should stay on BID PPI indefinitely. No role for endoscopy at this point. Matty Cabrera MD
--- NOTE | 2017-07-24 14:48 | Progress Note ---
Internal Med Progress Note Date of Service: Jul 24, 2017. Provider Documentation: SUBJECTIVE: Patient seen and examined at bedside. No distress. Patient denies blood in stool. Patient denies shortness of breath or chest pain OBJECTIVE: eneral Appearance: no apparent distress Head: normocephalic, atraumatic Eyes: sclerae normal ENT: normal ENT inspection Neck: thyroid normal, trachea midline Respiratory/Chest: lungs clear, normal breath sounds, diffuse eccymosis on ant chest wall Cardiovascular: regular rate, rhythm, no edema, normal peripheral pulses Abdomen/GI: normal bowel sounds, non tender, soft Back: ecchymosis on rt upper flank area -extending form ant chest wall Extremities/Musculoskelatal: diffuse eccymosis on anterior chest wall , most prominent on rt side , ecchymosis extends to rt axillary area and rt upper flank Neurologic/Psych: no motor/sensory deficits, alert, normal mood/affect Skin: diffuse eccymosis on ant chest wall/rt axially area and rt upper flank ASSESSMENT & PLAN: 87 yo f with past medical hx of HTN , diastolic HF , HLD, H/O DVT on chronic anticoagulation , chronic anemia , CKD stage 3 , Hiatal hernia -resident at [facility] presents to ER with anemia -out pt Lab showed Hgb 6.7 which was compared to Hgb of 10 on 07/17/17 and 7.3 on 07/21/17 At [facility], patient's Hgb was on admission 7.3 on 07/23/17 and received 1 unit of PRBC for the anemia which raise the Hgb to 9.1 post transfusion. Two CBCs were drawn and showed Hgb stable at 8.8 on 07/24/17. Patient also has diffuse chest wall bruising seen during this hospital presentation. Gastroenterology was consulted to evaluate for GI source of anemia. As per GI evaluation "Anemia most likely related to several issues namely her large hematoma and chronic low grade GI bleeding from her hiatal hernia exacerbated by anticoagulation. Patient should stay on BID PPI indefinitely. No role for endoscopy at this point" May be possible that patient's decrease in Hgb is from the diffuse ecchymosis which could have been induced by trauma vs coumadin use Will ask patient to stop Coumadin use for now CT abdomen 1. No evidence of intra-abdominal or pelvic hemorrhage 2. No evidence of bowel obstruction. No evidence of free air 3. Colonic diverticulosis 4. Large hiatal hernia with intrathoracic stomach 5. Cholelithiasis. Porcelain gallbladder. CT Chest: 1. Right anterior chest wall hematoma measuring 9 x 3 cm. 2. Significant surrounding soft tissue edematous change and/or contusion of the right lateral chest wall extending to the superior right flank. 3. Nondisplaced cortical fracture right sixth rib. 4. Large fixed hiatal hernia. 5. The lungs are clear. Shoulder X ray 1. No acute fracture or dislocation. 2. Severe degenerative changes of the glenohumeral and AC joints. 3. Markedly decreased acromiohumeral interval is compatible with underlying rotator cuff disease. As per general surgery note: "ecchymosis to chest wall. Patient limited by arthritis, but no significant weakness detected on adduction or internal rotation of right arm. No surgical intervention for hematoma. May represent partial pectoralis tear, spoke with ortho but likely non op and recommend PT" Disposition: Discharge to [facility] Patient needs follow up with primary care at [facility] CBC to be repeated within the next 2 days after hospital discharge [facility] appointment line [phone] to request that patient see hematology for anemia and diffuse ecchymosis at [facility] [address] [place] [address] Patient instructed to return to emergency room if symptoms of anemia such lightheadedness, shortness of breath, abdominal pain, loss of consciousness, or sees blood in the stool Vital Signs: Date Time Temp Pulse Resp B/P (MAP) Pulse Ox O2 Delivery O2 Flow Rate FiO2 07/24/17 08:52 94 Room Air 07/24/17 08:32 36.7 76 14 126/82 (97) 94 Room Air 07/24/17 08:20 Room Air 07/24/17 00:08 Room Air 07/23/17 23:04 36.5 83 18 130/75 (93) 95 Room Air 07/23/17 20:05 Room Air 07/23/17 16:45 36.5 79 18 120/69 07/23/17 16:00 Room Air 07/23/17 15:45 36.4 79 18 111/72 Lab Results: Results Past 24 Hours Test 07/23/17 19:07 07/24/17 05:48 07/24/17 11:57 Range/Units Hemoglobin 9.1 8.8 8.8 12.0-16.0 g/dL Hematocrit 27.8 26.3 27.3 37-47 % White Blood Count 6.10 4.8-10.8 K/uL Red Blood Count 2.81 4.2-5.4 M/uL Mean Corpuscular Volume 93.6 80-100 fL Mean Corpuscular Hemoglobin 31.3 25-34 pg Mean Corpuscular Hemoglobin Concent 33.5 32-36 g/dl RDW Standard Deviation 58.0 36.4-46.3 fL RDW Coefficient of Variation 17.1 11.5-14.5 % Platelet Count 254 130-400 K/uL Mean Platelet Volume 10.0 7.4-10.4 fL Prothrombin Time 11.2 9.0-12.0 SECONDS Prothromb Time International Ratio 1.1 0.9-1.1 Sodium Level 141 136-145 mmol/L Potassium Level 4.1 3.5-5.1 mmol/L Chloride Level 111 98-107 mmol/L Carbon Dioxide Level 25 21-32 mmol/L Anion Gap 5.0 3-11 mmol/L Blood Urea Nitrogen 24 7-18 mg/dl Creatinine 1.10 0.60-1.20 mg/dl Est Creatinine Clear Calc Drug Dose 35.6 ml/min Estimated GFR () 52.3 Estimated GFR (Non- 45.1 BUN/Creatinine Ratio 22.2 10-20 Random Glucose 92 70-99 mg/dl Calcium Level 8.3 8.5-10.1 mg/dl
--- NOTE | 2017-07-24 15:10 | Discharge Instructions ---
Discharge Instructions Date of Service Jul 24, 2017. Admission Reason for Admission: Acute Blood Loss Anemia, Hematoma Discharge Discharge Diagnosis / Problem: anemia, hematoma right chest wall, ecchymosis/ contusion, hiatal hernia Discharge Goals Goal(s): Improve disease control Activity Recommendations Activity Limitations: per Instructions/Follow-up section Shower/Bathe: no limitations . Instructions / Follow-Up Instructions / Follow-Up 87 yo f with past medical hx of HTN , diastolic HF , HLD, H/O DVT on chronic anticoagulation , chronic anemia , CKD stage 3 , Hiatal hernia -resident at [facility] presents to ER with anemia -out pt Lab showed Hgb 6.7 which was compared to Hgb of 10 on 07/17/17 and 7.3 on 07/21/[address] [facility], patient's Hgb was on admission 7.3 on 07/23/17 and received 1 unit of PRBC for the anemia which raise the Hgb to 9.1 post transfusion. Two CBCs were drawn and showed Hgb stable at 8.8 on 07/24/17. Patient also has diffuse chest wall bruising seen during this hospital presentation. Gastroenterology was consulted to evaluate for GI source of anemia. As per GI evaluation "Anemia most likely related to several issues namely her large hematoma and chronic low grade GI bleeding from her hiatal hernia exacerbated by anticoagulation. Patient should stay on BID PPI indefinitely. No role for endoscopy at this point" May be possible that patient's decrease in Hgb is from the diffuse ecchymosis which could have been induced by trauma vs coumadin use Will ask patient to stop Coumadin use for now CT abdomen 1. No evidence of intra-abdominal or pelvic hemorrhage 2. No evidence of bowel obstruction. No evidence of free air 3. Colonic diverticulosis 4. Large hiatal hernia with intrathoracic stomach 5. Cholelithiasis. Porcelain gallbladder. CT Chest: 1. Right anterior chest wall hematoma measuring 9 x 3 cm. 2. Significant surrounding soft tissue edematous change and/or contusion of the right lateral chest wall extending to the superior right flank. 3. Nondisplaced cortical fracture right sixth rib. 4. Large fixed hiatal hernia. 5. The lungs are clear. Shoulder X ray 1. No acute fracture or dislocation. 2. Severe degenerative changes of the glenohumeral and AC joints. 3. Markedly decreased acromiohumeral interval is compatible with underlying rotator cuff disease. As per general surgery note: "ecchymosis to chest wall. Patient limited by arthritis, but no significant weakness detected on adduction or internal rotation of right arm. No surgical intervention for hematoma. May represent partial pectoralis tear, spoke with ortho but likely non op and recommend PT" Disposition: Discharge to [facility] Patient needs follow up with primary care at [facility] CBC to be repeated within the next 2 days after hospital discharge [facility] appointment line [phone] to request that patient see hematology for anemia and diffuse ecchymosis at [facility] [address] [place] [address] Patient instructed to return to emergency room if symptoms of anemia such lightheadedness, shortness of breath, abdominal pain, loss of consciousness, or sees blood in the stool Current Hospital Diet Patient's current hospital diet: AHA Diet (Heart Healthy) Discharge Diet Recommended Diet: AHA Diet (Heart Healthy) Pending Studies Studies pending at discharge: no Laboratory Results 07/24/17 05:48 07/24/17 11:57 07/24/17 05:48 Test 07/23/17 10:19 07/24/17 05:48 Immature Granulocyte % (Auto) 0.6 % White Blood Count 7.88 K/uL (4.8-10.8) Red Blood Count 2.30 M/uL (4.2-5.4) 2.81 M/uL (4.2-5.4) Hemoglobin 7.3 g/dL (12.0-16.0) Hematocrit 22.5 % (37-47) Mean Corpuscular Volume 97.8 fL (80-100) 93.6 fL (80-100) Mean Corpuscular Hemoglobin 31.7 pg (25-34) 31.3 pg (25-34) Mean Corpuscular Hemoglobin Concent 32.4 g/dl (32-36) 33.5 g/dl (32-36) Platelet Count 239 K/uL (130-400) Mean Platelet Volume 10.7 fL (7.4-10.4) 10.0 fL (7.4-10.4) Neutrophils (%) (Auto) 68.9 % Lymphocytes (%) (Auto) 15.0 % Monocytes (%) (Auto) 10.9 % Eosinophils (%) (Auto) 4.3 % Basophils (%) (Auto) 0.3 % Neutrophils # (Auto) 5.43 K/uL (1.4-6.5) Lymphocytes # (Auto) 1.18 K/uL (1.2-3.4) Monocytes # (Auto) 0.86 K/uL (0.11-0.59) Eosinophils # (Auto) 0.34 K/uL (0-0.5) Basophils # (Auto) 0.02 K/uL (0-0.2) Immature Granulocyte # (Auto) 0.05 K/uL (0.00-0.02) Polychromasia 1+ Hypochromasia PRESENT Activated Partial Thromboplast Time 38.0 SECONDS (21.0-31.0) Partial Thromboplastin Ratio 1.5 RDW Standard Deviation 58.0 fL (36.4-46.3) RDW Coefficient of Variation 17.1 % (11.5-14.5) Prothrombin Time 11.2 SECONDS (9.0-12.0) Prothromb Time International Ratio 1.1 (0.9-1.1) Anion Gap 5.0 mmol/L (3-11) Est Creatinine Clear Calc Drug Dose 35.6 ml/min Estimated GFR () 52.3 Estimated GFR (Non- 45.1 BUN/Creatinine Ratio 22.2 (10-20) Calcium Level 8.3 mg/dl (8.5-10.1) Medical Emergencies . Who to Call and When: Medical Emergencies: If at any time you feel your situation is an emergency, please call 911 immediately. . Non-Emergent Contact Non-Emergency issues call your: Primary Care Provider . . "Provider Documentation" section prepared by Kg Barrow. . VTE Core Measure Inpt VTE Proph given/why not?: SCD's
--- NOTE | 2017-07-24 15:48 | Discharge Summary ---
Discharge Summary Date of Service Jul 24, 2017. Discharge Summary Admission Date: Jul 23, 2017 at 12:03 Discharge Date: Jul 24, 2017 Discharge Disposition: correction facility ([facility]) Principal Diagnosis: anemia, hematoma right chest wall, ecchymosis/contusion, hiatal hernia, rotator cuff disorder, closed non displaced right rib fracture Medication Reconciliation Continued Medications: Acetaminophen (Tylenol Arthritis Ext Rel) 650 Mg Cplt 1300 MG PO QAM Acetaminophen Tab (Tylenol) 325 Mg Tab 650 MG PO Q6H PRN for Pain or Fever Allopurinol (Zyloprim) 100 Mg Tab 100 MG PO 0600 Amlodipine Besylate (Norvasc) 5 Mg Tab 5 MG PO HS Amoxicillin (Amoxicillin) 500 Mg Cap 2000 MG PO UD PRN for Antibiotic Prophylaxis TAKE THIS MEDICATION ONE HOUR PRIOR TO DENTAL PROCEDURES Aspirin (Aspirin Chewable) 81 Mg Chew 81 MG PO 0600 Coenzyme Q10 (Ubidecarenone) (Coq-10) 100 Mg Cap 100 MG PO 0600 Colchicine (Colchicine) 0.6 Mg Tab 0.6 MG PO Q48HRS Cyanocobalamin (Vitamin B-12) 500 Mcg Tab 500 MCG PO QAM Estrogens, Conjugated (Premarin) 14 Appln/30 Gm Cr 1 APPL PV 3XWK PREMARIN 0.625 MG/GM - ONE APPLICATION AT BEDTIME EVERY THURSDAY,THURSDAY AND THURSDAY Ferrous Sulfate (Ferrous Sulfate) 325 Mg Tab 325 MG PO QPM Fluticasone Propionate (Nasal) (Flonase Allergy Relief) 50 Mcg/Act Spr 1 SPRAY EVA 0600 Guaifenesin Ext Rel (Mucinex Ext Rel) 600 Mg Tab 600 MG PO Q12 PRN for Cough/Congestion Hydrocodone/Acetaminophen 5MG/325MG (Campus 5MG/325MG) Tab 1 TABLET PO Q4H PRN for Pain, TAB take 1 tablet every 4 hours as needed for pain ( pain scale of 1-10 on a 1-10 scale) Hydrocodone/Acetaminophen 5MG/325MG (Campus 5MG/325MG) Tab 2 TABLETS PO Q4 PRN for Pain take 2 tablets every 4 hours as needed for pain ( pain scale 8-10 on a pain scale of 1-10) Lidocaine-Prilocaine (Lidocaine/Prilocaine) 1 Cre Cre 1 APPLN TOP Q6H PRN for Shoulder Pain APLLY DIRECTED TO SHOULDERS Loratadine (Claritin) 10 Mg Tab 10 MG PO Q24H PRN for Seasonal Allergies Multiple Vitamins W/ Minerals (Ocuvite Lutein) 1 Cap Cap 1 CAP PO QAM Omeprazole (Prilosec) 20 Mg Capcr 40 MG PO BID Oxycodone Hcl (Oxycodone Hcl) 5 Mg Cap 2.5 MG PO Q4 PRN for Pain take 2.5mg every 4 hours as needed for pain if prn norco is ineffective, take 1/2 tablet po prn pain 2-6 on a scale of 0-10 Oxycodone Hcl (Oxycodone Hcl) 5 Mg Cap 5 MG PO Q4H PRN for Pain take 5mg every 4 hours as needed for pain if prn norco ineffective, take 5mg po prn pain 7-10 on a scale of 0-10 Prednisone (Prednisone) 20 Mg Tab 20 MG PO UD PRN for Gout Flare Up TAPER DOWN DOSING FOLLOWS: TAKE 3 TABLETS (60 MG) DAILY FOR 1 DAY THEN, TAKE 2 TABLETS (40 MG) DAILY FOR 2 DAYS THEN, TAKE 1 TABLET (20 MG) DAILY FOR 2 DAYS THEN, TAKE 0.5 TABLET (10 MG) DAILY FOR 2 DAYS THEN STOP. Probiotic Product (Probiotic) 1 Cap Cap 1 CAP PO 0600 Sodium Chloride Hypertonic (Jim 128) 5 % Aura 1 DROP OPB TID Discontinued Medications: Diclofenac Sodium (Topical) (Voltaren 1% Top Gel) 1 % Gel 2 GM TOP Q6H PRN for Shoulder Pain APPLY TO SHOULDERS DIRECTED Warfarin Sod (Coumadin) 2.5 Mg Tab 2.5 MG PO 6XWK TAKE 2.5 MG EVERY THURSDAY,THURSDAY,THURSDAY,THURSDAY,THURSDAY AND THURSDAY OR OTHERWISE DIRECTED TO TAKE BY ANTICOAGULATION CLINIC/MD Warfarin Sod (Coumadin) 2.5 Mg Tab 1.25 MG PO WK TAKE HALF A TABLET (1.25 MG) EVERY THURSDAY OR OTHERWISE DIRECTED TO TAKE BY ANTICOAGULATION CLINIC/MD Admission Information HPI (per Admitting provider): This is a 87 yo f with past medical hx of HTN , diastolic HF , HLD, H/O DVT on chronic anticoagulation , chronic anemia , CKD stage 3 , Hiatal hernia - resident at [facility] presents to ER with anemia -out pt Lab showed Hb 6.7 pt was evaluated in [facility] ER on 07/20/17 -with complain of Rt shoulder and chest wall pain she was taking shower and slipped , held on to shower handle with right hand to break the fall , no direct trauma or fall occurred had excruciating pain in anterior chest wall and rt shoulder in visit : Chest Xray was un remarkable , pt had diffuse bruise on anterior chest wall Hb was 8.6 , INR 3.2 pt was discharged form ER , Per retirement, the patient's hemoglobin was 10.8 six days ago (Jul 17), and was 8.8 two days ago (Jul 21). Physical Exam (per Admitting): General Appearance: no apparent distress Head: normocephalic, atraumatic Eyes: sclerae normal ENT: normal ENT inspection Neck: thyroid normal, trachea midline Respiratory/Chest: lungs clear, normal breath sounds, + pertinent finding ( tenderness on chest wall in rt upper and lateral area , no flactuation noted, diffuse eccymosis on ant chest wall ) Cardiovascular: regular rate, rhythm, no edema, normal peripheral pulses Abdomen/GI: normal bowel sounds, non tender, soft Back: + pertinent finding (ecchymosis on rt upper flank area -extending form ant chest wall ) Extremities/Musculoskelatal: + pertinent finding (diffuse eccymosis on anterior chest wall , most prominent on rt side , eccymois extends to rt axillary area and rt upper flank ; + tenderness ) Neurologic/Psych: no motor/sensory deficits, alert, normal mood/affect Skin: + pertinent finding (diffuse eccymosis on ant chest wall/rt axially area and rt upper flank ) Hospital Course 87 yo f with past medical hx of HTN , diastolic HF , HLD, H/O DVT on chronic anticoagulation , chronic anemia , CKD stage 3 , Hiatal hernia -resident at [facility] presents to ER with anemia -out pt Lab showed Hgb 6.7 which was compared to Hgb of 10 on 07/17/17 and 7.3 on 07/21/17 At [facility], patient's Hgb was on admission 7.3 on 07/23/17 and received 1 unit of PRBC for the anemia which raise the Hgb to 9.1 post transfusion. Two CBCs were drawn and showed Hgb stable at 8.8 on 07/24/17. Patient also has diffuse chest wall bruising seen during this hospital presentation. Gastroenterology was consulted to evaluate for GI source of anemia. As per GI evaluation "Anemia most likely related to several issues namely her large hematoma and chronic low grade GI bleeding from her hiatal hernia exacerbated by anticoagulation. Patient should stay on BID PPI indefinitely. No role for endoscopy at this point" May be possible that patient's decrease in Hgb is from the diffuse ecchymosis which could have been induced by trauma vs coumadin use Will ask patient to stop Coumadin use for now CT abdomen 1. No evidence of intra-abdominal or pelvic hemorrhage 2. No evidence of bowel obstruction. No evidence of free air 3. Colonic diverticulosis 4. Large hiatal hernia with intrathoracic stomach 5. Cholelithiasis. Porcelain gallbladder. CT Chest: 1. Right anterior chest wall hematoma measuring 9 x 3 cm. 2. Significant surrounding soft tissue edematous change and/or contusion of the right lateral chest wall extending to the superior right flank. 3. Nondisplaced cortical fracture right sixth rib. 4. Large fixed hiatal hernia. 5. The lungs are clear. Shoulder X ray 1. No acute fracture or dislocation. 2. Severe degenerative changes of the glenohumeral and AC joints. 3. Markedly decreased acromiohumeral interval is compatible with underlying rotator cuff disease. As per general surgery note: "ecchymosis to chest wall. Patient limited by arthritis, but no significant weakness detected on adduction or internal rotation of right arm. No surgical intervention for hematoma. May represent partial pectoralis tear, spoke with ortho but likely non op and recommend PT" Disposition: Discharge to [facility] Patient needs follow up with primary care at [facility] CBC to be repeated within the next 2 days after hospital discharge [facility] appointment line [phone] to request that patient see hematology for anemia and diffuse ecchymosis at [facility] [address] [place] [address] Patient instructed to return to emergency room if symptoms of anemia such lightheadedness, shortness of breath, abdominal pain, loss of consciousness, or sees blood in the stool Total time spent on discharge = 60 minutes This includes examination of the patient, discharge planning, medication reconciliation, and communication with other providers. Discharge Instructions see above
[2017-07-24 15:58] VITALS: BP 126/82; PULSE 76; TEMP 36.7; O2SAT 94
--- NOTE | 2017-07-24 18:33 | Orthopedic Consultation ---
Orthopedic Consultation Date of Consultation: Jul 24, 2017. Attending Physician: Kg Barrow M.D. Reason for Consultation: Right shoulder pain History of Present Illness Ms Davis is an 87 year old right hand dominant female who had acute worsening of her chronic right shoulder pain about a week ago on July 19 when she was getting out of the shower. She reached for a handle to guide herself out of the shower when she had acute onset of this right shoulder pain. She did not fall or significantly torque the arm; she just had pain with reaching in a forward flexed position. She does note that she has had chronic bilateral shoulder pain and stiffness that has progressively worsened over many years. The right shoulder has been only slightly worse than the left. She denies any significant change in her range of motion or strength with this painful episode one week ago. She was evaluated by Dr. Todd a few months ago , who diagnosed her with significant shoulder arthritis, and he gave her a steroid injection at that time. She reports no change in pain with that injection. Past Medical/Surgical History Medical Problems: (1) Anemia Status: Acute (2) Arthritis Status: Acute (3) Chest wall contusion Status: Acute Family History No pertinent family history Social History Smoking Status: Former Smoker Drug Use: none Marital Status: Housing Status: group home Occupation Status: retired Allergies Coded Allergies: No Known Allergies (Unverified , 07/23/17) Home Medications Scheduled Acetaminophen (Tylenol Arthritis Ext Rel), 1,300 MG PO QAM Allopurinol (Zyloprim), 100 MG PO 0600 Amlodipine Besylate (Norvasc), 5 MG PO HS Aspirin (Aspirin Chewable), 81 MG PO 0600 Coenzyme Q10 (Ubidecarenone) (Coq-10), 100 MG PO 0600 Colchicine (Colchicine), 0.6 MG PO Q48HRS Cyanocobalamin (Vitamin B-12), 500 MCG PO QAM Estrogens, Conjugated (Premarin), 1 APPL PV 3XWK Ferrous Sulfate (Ferrous Sulfate), 325 MG PO QPM Fluticasone Propionate (Nasal) (Flonase Allergy Relief), 1 SPRAY EVA 0600 Multiple Vitamins W/ Minerals (Ocuvite Lutein), 1 CAP PO QAM Omeprazole (Prilosec), 40 MG PO BID Probiotic Product (Probiotic), 1 CAP PO 0600 Sodium Chloride Hypertonic (Jim 128), 1 DROP OPB TID Scheduled PRN Acetaminophen Tab (Tylenol), 650 MG PO Q6H PRN for Pain or Fever Amoxicillin (Amoxicillin), 2,000 MG PO UD PRN for Antibiotic Prophylaxis Guaifenesin Ext Rel (Mucinex Ext Rel), 600 MG PO Q12 PRN for Cough/Congestion Hydrocodone/Acetaminophen 5MG/325MG ([place] 5MG/325MG), 1 TABLET PO Q4H PRN for Pain Hydrocodone/Acetaminophen 5MG/325MG ([place] 5MG/325MG), 2 TABLETS PO Q4 PRN for Pain Lidocaine-Prilocaine (Lidocaine/Prilocaine), 1 APPLN TOP Q6H PRN for Shoulder Pain Loratadine (Claritin), 10 MG PO Q24H PRN for Seasonal Allergies Oxycodone Hcl (Oxycodone Hcl), 2.5 MG PO Q4 PRN for Pain Oxycodone Hcl (Oxycodone Hcl), 5 MG PO Q4H PRN for Pain Prednisone (Prednisone), 20 MG PO UD PRN for Gout Flare Up Physical Exam Date Time Temp Pulse Resp B/P (MAP) Pulse Ox O2 Delivery O2 Flow Rate FiO2 07/24/17 15:58 36.7 76 14 94 Room Air 07/24/17 08:52 94 Room Air 07/24/17 08:32 36.7 76 14 126/82 (97) 94 Room Air 07/24/17 08:20 Room Air 07/24/17 00:08 Room Air 07/23/17 23:04 36.5 83 18 130/75 (93) 95 Room Air 07/23/17 20:05 Room Air Right shoulder: She has some mild ecchymosis spreading from the right shoulder area into the upper chest. No skin lacerations or abrasions. She has approximately 75 of active abduction, and only about 40 of forward flexion, both of which are similar to the opposite side. She has external rotation to neutral, which is actually significantly better than her opposite shoulder. Rotator cuff strength is weak at approximately 4 out of 5 throughout, again similar to her opposite shoulder. No instability. Motor and sensory function is intact in the median, ulnar, and radial nerve distributions. Hand is warm and well-perfused. Laboratory Results Last 24 Hours Test 07/23/17 19:07 07/24/17 05:48 07/24/17 11:57 Hemoglobin 9.1 g/dL 8.8 g/dL 8.8 g/dL Hematocrit 27.8 % 26.3 % 27.3 % White Blood Count 6.10 K/uL Red Blood Count 2.81 M/uL Mean Corpuscular Volume 93.6 fL Mean Corpuscular Hemoglobin 31.3 pg Mean Corpuscular Hemoglobin Concent 33.5 g/dl RDW Standard Deviation 58.0 fL RDW Coefficient of Variation 17.1 % Platelet Count 254 K/uL Mean Platelet Volume 10.0 fL Prothrombin Time 11.2 SECONDS Prothromb Time International Ratio 1.1 Sodium Level 141 mmol/L Potassium Level 4.1 mmol/L Chloride Level 111 mmol/L Carbon Dioxide Level 25 mmol/L Anion Gap 5.0 mmol/L Blood Urea Nitrogen 24 mg/dl Creatinine 1.10 mg/dl Est Creatinine Clear Calc Drug Dose 35.6 ml/min Estimated GFR () 52.3 Estimated GFR (Non- 45.1 BUN/Creatinine Ratio 22.2 Random Glucose 92 mg/dl Calcium Level 8.3 mg/dl Radiology: Right shoulder x-rays were independently reviewed by me. She has obvious evidence of severe chronic rotator cuff tear arthropathy with significant proximal migration of the humeral head, and resultant chronic erosion and acetabularization of the acromion. Assessment & Plan (1) Secondary osteoarthritis, right shoulder She has obvious chronic right shoulder rotator cuff tear arthropathy. I explained this arthritis process to the patient and her daughter. I think that the pain that she felt in her shoulder one week ago without any significant trauma was likely just an exacerbation of her arthritis pain with forward flexion reaching motion. I advised her that the only viable surgical treatment option for this problem is a reverse total shoulder arthroplasty. She says that her pain is not severe enough to warrant any significant surgical intervention such as this. She can follow-up with Dr. Todd on an as-needed basis. I am covering Orthopedic Surgery call for Dr. Todd, who was unavailable. Lj Cain MD
[2017-07-25] MEDS ORDERED: COLCHICINE 0.6 MG TAB PO SCH (06:00)
== END 2017-07-24 16:35 | DRG 813 ==
LOC: EDBD 10:01 → C.EDB 10:02 → C.4E 12:03 → ENRESERV 12:37
PROVIDERS: ADMIT Hospitalist; ATTEND Hospitalist
DX: D68.32 Hemorrhagic disorder due to extrinsic circulating anticoagulants (principal); I50.30 Unspecified diastolic (congestive) heart failure; I13.0 Hypertensive heart and chronic kidney disease with heart failure and stage 1 through stage 4 chronic kidney disease, or unspecified chronic kidney disease; D62 Acute posthemorrhagic anemia; S20.211A Contusion of right front wall of thorax, initial encounter; N18.3 Chronic kidney disease, stage 3 (moderate); E87.6 Hypokalemia; M19.211 Secondary osteoarthritis, right shoulder; Z86.718 Personal history of other venous thrombosis and embolism; E78.5 Hyperlipidemia, unspecified; Z87.891 Personal history of nicotine dependence; Z79.01 Long term (current) use of anticoagulants; W01.0XXA Fall on same level from slipping, tripping and stumbling without subsequent striking against object, initial encounter; Y92.012 Bathroom of single-family (private) house as the place of occurrence of the external cause